=== PATIENT | male | born 1945 | race Caucasian/White ===

== ENCOUNTER 2017-07-14 17:53 | Inpatient (IN) | payer MEDICARE, OTHER ==
[~2017-07-14] VITALS: Ht 195.6 cm; Wt 113.9 kg
[~2017-07-14 17:53] MED LIST: ASPI-630 PO; CHOL500050 PO; DONE10TA7 PO; DOXA4TAB3 PO; FEXO180T81 PO; HYDR-965 PO; LOSA100T2 PO; MEMA1CAP3 PO; OMEP20CA5 PO; PRAV40TA PO
[2017-07-14 19:26] LABS: BASO # 0.1 x10^3/uL (0.0-0.2); BASO % 1 % (0-3); EOS % 2 % (0-3); HEMATOCRIT 50.6 % (39.0-53.0); HEMOGLOBIN 17.3 g/dL (13.0-17.5); LYMPH # 1.6 x10^3/uL (1.0-4.8); LYMPH % 24 % (24-48); MEAN CORPUSCULAR HEMOGLOBIN 30 pg (25-35); MEAN CORPUSCULAR HGB CONC 34 g/dL (31-37); MEAN CORPUSCULAR VOLUME 86 fL (79-100); MONO % 8 % (0-9); NEUT % 65 % (31-73); PLATELET COUNT 147 x10^3/uL (140-400); RED BLOOD COUNT 5.85 x10^6/uL (4.30-5.70); RED CELL DISTRIBUTION WIDTH 13.8 % (11.5-14.5); WHITE BLOOD COUNT 6.7 x10^3/uL (4.0-11.0)
[2017-07-14 19:40] LABS: BILIRUBIN,URINE NEGATIVE (NEG); GLUCOSE,URINE NEGATIVE (NEG); NITRITE,URINE NEGATIVE (NEG); PH,URINE 5.5; PROTEIN,URINE NEGATIVE (NEG-TRACE)
[2017-07-14 19:42] LABS: CALCIUM 8.9 mg/dL (8.5-10.1); CREATININE 4.7 mg/dL (0.7-1.3); GFR 12.4; POTASSIUM 4.6 mmol/L (3.5-5.1)
[2017-07-14 19:48] LABS: ALBUMIN 4.2 g/dL (3.4-5.0); ALBUMIN/GLOBULIN RATIO 1.4 (1.0-1.7); TOTAL BILIRUBIN 0.8 mg/dL (0.2-1.0); TOTAL PROTEIN 7.2 g/dL (6.4-8.2)
[2017-07-14 19:49] LABS: BACTERIA,URINE FEW /HPF (0-FEW); RBC,URINE 0 /HPF (0-2)
[2017-07-14] MEDS ORDERED: IV NORMAL SALINE 1000ML BAG 1,000 ML IV ONE (20:15)
--- NOTE | 2017-07-14 20:37 | EKG ---
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
--- NOTE | 2017-07-14 21:04 | PHYS DOC ---
Past Medical History Past Medical History: Depression, GERD, Hypertension, Other Additional Past Medical Histor: ALZHEIMER'S Past Surgical History: No Surgical History Alcohol Use: None Drug Use: None Adult General Chief Complaint Chief Complaint: DIZZY/LIGHT HEADED HPI HPI Patient is a 71 year old gentleman who presents here today for further evaluation of an elevated BUN/creatinine. Patient reports he went to see Dr. Anna earlier today for routine follow-up for his hypertension and got called secondary to an elevated creatinine. Patient was told to come to the ER for further evaluation. Patient currently has no symptoms pathology. Patient Denies any fevers shakes chills nausea vomiting diarrhea. Patient has any dizziness. Patient has any chest pain or shortness of breath. Patient reports normal by mouth intake. She reports been eating and drinking without any difficulty. Patient reports normal urinary output. Patient denies any dysuria frequency urgency polyuria polyuria. Patient denies any melena or bright red blood per rectum. Patient denies any hematuria. Patient has any flank tenderness. Patient denies any difficulty. Sensation in his bladder is full. Review of systems: Constitutional: Denies fever or chills Eyes: Denies change in visual acuity, redness, or eye pain HENT: Denies nasal congestion or sore throat All other systems were reviewed and found to be within normal limits, except as documented in this note. Physical exam Constitutional: Well developed, well nourished, no acute distress, non-toxic appearance. HENT: Normocephalic, atraumatic, bilateral external ears normal, oropharynx moist, no oral exudates, nose normal. Eyes: PERRLA, EOMI, conjunctiva normal, no discharge. Neck: Normal range of motion, no tenderness, supple, no stridor. Cardiovascular:Heart rate regular rhythm, Lungs & Thorax: Bilateral breath sounds clear to auscultation Abdomen: Nondistended. Skin: Warm, dry, no erythema, no rash. Back: No tenderness, no CVA tenderness. Extremities: No tenderness, no cyanosis, no clubbing, ROM intact, no edema. Neurologic: Alert and oriented X 3, normal motor function, normal sensory function, no focal deficits noted. Psychologic: Affect normal, judgement normal, mood normal. ER physical exam is significant for: Abdomen soft nontender no rebound or guarding. Patient has no flank tenderness. Patient's labs were significant for markedly elevated BUN/creatinine. Patient has no acidosis and his potassium is within normal limits. Ultrasound will be obtained. Assessment and plan: 1. 71-year-old gentleman with history significant for Alzheimer's, hypertension who presents to the ER today for further evaluation of acute renal failure. Patient reports he was called by his primary care physician secondary to his elevated BUN/creatinine. I discussed the case with Dr. Anna who agrees to current plan to admit him and will consult nephrology. We will obtain an ultrasound of his kidneys to rule out hydronephrosis. Current Medications Current Medications Current Medications Medications (Trade) Dose Ordered Sig/Luis Armando Start Time Stop Time Status Last Admin Dose Admin Sodium Chloride 1,000 ml @ 1,000 mls/hr 1X ONCE 07/14/17 20:15 07/14/17 21:14 07/14/17 20:31 1,000 MLS/HR Allergies Allergies Allergies Coded Allergies Type Severity Reaction Last Updated Verified Sulfa (Sulfonamide Antibiotics) Adverse Reaction Intermediate "SHAKES" 01/21/16 Yes meloxicam Adverse Reaction Intermediate "SHAKES" 01/21/16 Yes SIGRID Inhibitors Adverse Reaction Mild COUGH 01/21/16 Yes Current Patient Data Vital Signs Vital Signs Date Time Temp Pulse Resp B/P (MAP) Pulse Ox O2 Delivery O2 Flow Rate FiO2 07/14/17 20:03 60 13 97 07/14/17 19:01 97.3 141/89 (106) Room Air 97.3 Lab Values Laboratory Tests Test 07/14/17 19:20 07/14/17 19:22 07/14/17 19:30 White Blood Count 6.7 x10^3/uL (4.0-11.0) Red Blood Count 5.85 x10^6/uL (4.30-5.70) H Hemoglobin 17.3 g/dL (13.0-17.5) Hematocrit 50.6 % (39.0-53.0) Mean Corpuscular Volume 86 fL (79-100) Mean Corpuscular Hemoglobin 30 pg (25-35) Mean Corpuscular Hemoglobin Concent 34 g/dL (31-37) Red Cell Distribution Width 13.8 % (11.5-14.5) Platelet Count 147 x10^3/uL (140-400) Neutrophils (%) (Auto) 65 % (31-73) Lymphocytes (%) (Auto) 24 % (24-48) Monocytes (%) (Auto) 8 % (0-9) Eosinophils (%) (Auto) 2 % (0-3) Basophils (%) (Auto) 1 % (0-3) Neutrophils # (Auto) 4.3 x10^3uL (1.8-7.7) Lymphocytes # (Auto) 1.6 x10^3/uL (1.0-4.8) Monocytes # (Auto) 0.5 x10^3/uL (0.0-1.1) Eosinophils # (Auto) 0.1 x10^3/uL (0.0-0.7) Basophils # (Auto) 0.1 x10^3/uL (0.0-0.2) Sodium Level 141 mmol/L (136-145) Potassium Level 4.6 mmol/L (3.5-5.1) Chloride Level 103 mmol/L (98-107) Carbon Dioxide Level 25 mmol/L (21-32) Anion Gap 13 (6-14) Blood Urea Nitrogen 61 mg/dL (8-26) H Creatinine 4.7 mg/dL (0.7-1.3) H Estimated GFR (Cockcroft-Gault) 12.4 BUN/Creatinine Ratio 13 (6-20) Glucose Level 96 mg/dL (70-99) Calcium Level 8.9 mg/dL (8.5-10.1) Total Bilirubin 0.8 mg/dL (0.2-1.0) Aspartate Amino Transferase (AST) 30 U/L (15-37) Alanine Aminotransferase (ALT) 27 U/L (16-63) Alkaline Phosphatase 73 U/L (46-116) Troponin I Quantitative < 0.017 ng/mL (0.000-0.055) Total Protein 7.2 g/dL (6.4-8.2) Albumin 4.2 g/dL (3.4-5.0) Albumin/Globulin Ratio 1.4 (1.0-1.7) Glucose (Fingerstick) 76 mg/dL (70-99) Urine Collection Type Unknown Urine Color Yellow Urine Clarity Cloudy Urine pH 5.5 Urine Specific [place] 1.020 Urine Protein Negative mg/dL (NEG-TRACE) Urine Glucose (UA) Negative mg/dL (NEG) Urine Ketones (Stick) Negative mg/dL (NEG) Urine Blood Negative (NEG) Urine Nitrite Negative (NEG) Urine Bilirubin Negative (NEG) Urine Urobilinogen Dipstick 1.0 mg/dL (0.2 mg/dL) Urine Leukocyte Esterase Trace (NEG) Urine RBC 0 /HPF (0-2) Urine WBC 1-4 /HPF (0-4) Urine Squamous Epithelial Cells None /LPF Urine Bacteria Few /HPF (0-FEW) Urine Hyaline Casts Moderate /HPF Urine Mucus Mod /LPF Laboratory Tests 07/14/17 19:20 Laboratory Tests 07/14/17 19:20 EKG EKG [] Radiology/Procedures Radiology/Procedures [] Course & Med Decision Making Course & Med Decision Making Pertinent Labs and Imaging studies reviewed. (See chart for details) [] Dragon Disclaimer Dragon Disclaimer This electronic medical record was generated, in whole or in part, using a voice recognition dictation system. Departure Departure Impression: Primary Impression: Acute renal failure Additional Impression: Alzheimer's dementia Disposition: ADMITTED INPATIENT Admitting Physician: Guru Anna Condition: IMPROVED Referrals: GURU ANNA MD (PCP) Problem Qualifiers SHANE URIBE MD Jul 14, 2017 21:04
[2017-07-14] MEDS: IV NORMAL SALINE 1000ML BAG 1,000 ML IV SCH (21:05)
[2017-07-14] MEDS ORDERED: ONDANSETRON PF 4 MG/2 ML VIAL. IV PRN (21:15)
--- NOTE | 2017-07-14 22:07 | RAD ---
Renal sonography HISTORY: Acute renal failure. FINDINGS: The longitudinal and AP and transverse dimensions of the right kidney are 11.6 cm and 5.1 cm and 6.9 cm respectively. The longitudinal and AP and transverse dimensions of the left kidney are 13.0 cm and 6.2 cm and 6.0 cm respectively. No hydronephrosis or renal mass or perinephric fluid collection is seen on either side. Bilateral renal cysts are seen. The urinary bladder is not abnormally distended. Prostate gland measures 5.9 cm in greatest transverse dimension. Resistive index of the right kidney is 0.72 and resistive index of the left kidney is 0.70. IMPRESSION: No hydronephrosis. Mild enlargement of the prostate gland. Bilateral renal cysts. Electronically signed by: Ignacio Goodman MD (07/14/2017 10:04 PM) [facility]
[2017-07-14 22:41] VITALS: BP 159/96
[2017-07-14 22:42] VITALS: BP 159/96
[2017-07-14] MEDS ORDERED: ESCITALOPRAM OX20 MG PO (23:07)
[2017-07-14] MEDS ORDERED: OMEG1CAP6 PO (23:07)
[2017-07-14] MEDS ORDERED: LOSA50TA6 PO (23:07)
[2017-07-14] MEDS ORDERED: DOXA1TAB2 PO (23:07)
[2017-07-14] MEDS ORDERED: AMLO5TAB2 PO (23:07)
[2017-07-15] VITALS (8 sets, daily range): BP systolic 121–165; BP diastolic 64–91
[2017-07-15 06:37] LABS: CALCIUM 8.2 mg/dL (8.5-10.1); CREATININE 4.1 mg/dL (0.7-1.3); GFR 14.5; POTASSIUM 4.1 mmol/L (3.5-5.1)
--- NOTE | 2017-07-15 09:17 | RAD ---
AP PORTABLE CHEST Clinical Indication: arf. Comparison: Two-view chest 09/13/2009. Findings: The cardiomediastinal silhouette is normal. Lungs are clear. There is no pneumothorax. No pleural effusion is appreciated. There is no acute bone abnormality. IMPRESSION: No acute cardiopulmonary process.
[2017-07-15] MEDS: IV NORMAL SALINE 1000ML BAG 1,000 ML IV SCH ×2 (09:44→20:38)
[2017-07-15] MEDS: CITALOPRAM 20 MG TABLET. PO SCH (11:29)
[2017-07-15] MEDS: LOSARTAN POTASSIUM 50 MG TABLET. PO SCH (11:30)
[2017-07-15] MEDS: MEMANTINE 10 MG TABLET. PO SCH ×2 (11:30→20:37)
[2017-07-15] MEDS: CETIRIZINE HCL 10 MG TABLET. PO SCH (11:30)
[2017-07-15] MEDS: amLODIPine BESYLATE 5 MG TABLET PO SCH (11:31)
[2017-07-15] MEDS: DONEPEZIL HCL 10 MG TABLET. PO SCH (11:32)
[2017-07-15] MEDS: OMEGA-3 FATTY ACIDS/FISH OIL 1,000 MG CAPSULE. PO SCH (11:32)
--- NOTE | 2017-07-15 11:33 | HP ---
ADMIT DATE: 07/14/2017 CHIEF COMPLAINT: Near syncope. HISTORY OF PRESENT ILLNESS AND HOSPITAL COURSE: This patient is a 71-year-old male with ongoing history of hypertension and Alzheimer's type dementia, initially came to the office on 04/26/2017 with significantly high blood pressures. He was increased on blood pressure treatment at that time from amlodipine 5 to amlodipine 10 and hydrochlorothiazide 12.5 was started. He had normal creatinine on that day, 04/26/2017, of 0.99. He returned in one month for recheck of blood pressures. Blood pressure continued to be high at 180/96. His medications were again adjusted, stopping his hydrochlorothiazide and starting triamterene/hydrochlorothiazide 37.5/25 on that occasion. The patient failed to have laboratory on that office visit due to nonfasting status and returned in one month, at which time his blood pressures were within normal range, but the patient was very dizzy and feeling orthostatic. This was confirmed in the office and medications were decreased by decreasing his losartan to 50 mg and amlodipine to 5 mg. His doxazosin was stopped on that day as well. Laboratory on that day revealed a significant finding of a creatinine over 4. The patient was called at home and told to come to the Emergency Room for further evaluation of near syncope, orthostatics and ongoing renal failure. PAST MEDICAL HISTORY: Significant for: 1. Alzheimer's type dementia. 2. Hypertension. 3. High cholesterol. 4. Esophageal reflux disease. 5. Depression. 6. History of cholelithiasis. 7. Benign prostatic hypertrophy. 8. Allergic rhinitis. MEDICATIONS: The patient's medications upon this hospitalization after recent adjustment were losartan 50 mg daily, doxazosin had been discontinued several days ago, but had not been discontinued to this point; amlodipine 10 mg now 5 mg, triamterene/hydrochlorothiazide 37.5/25, pravastatin 40 mg daily, Namzaric Aricept-Namenda combination 05/19 one daily, Lexapro 20 mg daily, Prilosec 20 mg daily, aspirin 81 mg daily, Jessica 180 mg every day, fish oil 1000 International Units daily, vitamin D 50,000 International Units weekly. FAMILY HISTORY: Mother with hypertension and breast cancer. Father with hypertension and a cancer, which was not elucidated. PAST SURGICAL HISTORY: Significant for tonsillectomy, appendectomy, kidney stone removal, varicose vein surgery, left knee scope and Davalos cyst removal, and unspecified tumor removal. SOCIAL HISTORY: He lives with his who provides excellent care. He has never smoked. He does not use alcohol. ALLERGIES: MELOXICAM, SULFA, WHICH CAUSES TREMORS; SIGRID INHIBITOR, WHICH CAUSES COUGH; LAMISIL, WHICH CAUSES INCREASED CONFUSION. REVIEW OF SYSTEMS: The patient continues to get dizzy when he gets up and walks and is a fall risk. He denies any recent nausea, vomiting, diarrhea, cough, congestion, chest pain, or shortness of breath. PHYSICAL EXAMINATION: GENERAL: Well-nourished, well-developed male, in no apparent distress. He is alert and oriented x 3. HEENT: Benign. NECK: Supple, without JVD or bruit. CARDIAC: Regular rate and rhythm. LUNGS: Clear. ABDOMEN: Soft, nontender, without masses. EXTREMITIES: 2+ pulse without edema. NEUROLOGIC: Intact except for ongoing short-term memory loss. ASSESSMENT: 1. Acute renal failure. 2. History of hypertensive emergency. 3. Near syncope. 4. Alzheimer type dementia. 5. Hypertension. 6. High cholesterol. 7. Reflux disease. 8. Benign prostatic hypertrophy. PEDRO VANCE MD DR: NATE/marycruz JOB#: [id number] / [id number]
--- NOTE | 2017-07-15 12:08 | PDOC2 ---
CONSULT Date of Consult Date of Consult DATE: 07/15/17 TIME: 12:07 Reason for Consult Reason for Consult: ELISABETH Referring Physician Referring Physician: Dr Anna Identification/Chief Complaint Chief Complaint Ab N Labs Problems: Source Source: Chart review, Patient History of Present Illness Reason for Visit: as dictated Current Problem List Problem List Problems Medical Problems: (1) Acute renal failure Status: Acute (2) Alzheimer's dementia Status: Acute Current Medications Current Medications Current Medications Sodium Chloride 1,000 ml @ 1,000 mls/hr 1X ONCE IV Last administered on 07/14 20:31; Start 07/14/17 at 20:15; Stop 07/14/17 at 21:14; Status DC Ondansetron HCl (Zofran) 4 mg PRN Q8HRS PRN IV NAUSEA/VOMITING; Start at 21:15; Stop 07/15/17 at 21:14 Sodium Chloride 1,000 ml @ 100 mls/hr Q10H IV Last administered on 07/15/17 09:44; Start 07/14/17 at 21:05; Stop 07/15/17 at 21:04 Amlodipine Besylate (Norvasc) 5 mg DAILY PO Last administered on 07/15/17 11: 31; Start 07/15/17 at 11:30 Losartan Potassium (Cozaar) 50 mg DAILY PO Last administered on 07/15/17 11: 30; Start 07/15/17 at 11:30 Fish Oil (Fish Oil) 1,000 mg DAILY PO Last administered on 07/15/17 11:32; Start 07/15/17 at 11:30 Non-Formulary Medication 50,000 unit WEEKLY PO ; Start 07/22/17 at 09:00 Citalopram Hydrobromide (CeleXA) 40 mg DAILY PO Last administered on 11:29; Start 07/15/17 at 11:30 Cetirizine HCl (ZyrTEC) 10 mg DAILY PO Last administered on 07/15/17 11:30; Start 07/15/17 at 11:30 Pantoprazole Sodium (Protonix) 40 mg QHS PO ; Start 07/15/17 at 21:00 Atorvastatin Calcium (Lipitor) 10 mg QHS PO ; Start 07/15/17 at 21:00 Memantine (Namenda) 10 mg BID PO Last administered on 07/15/17 11:30; Start 07/15/17 at 11:30 Donepezil HCl (Aricept) 10 mg DAILY PO Last administered on 07/15/17 11:32; Start 07/15/17 at 11:30 Active Scripts Active Reported Fish Oil 1,000 Mg Capsule ([place]-3 Fatty Acids/Fish Oil) 1 Each Capsule 1 Each PO Doxazosin Mesylate 1 Mg Tablet 1 Mg PO DAILY Losartan Potassium 50 Mg Tablet 50 Mg PO DAILY Amlodipine Besylate 5 Mg Tablet 5 Mg PO DAILY Escitalopram Oxalate 20 Mg Tablet 1 Tab PO DAILY Aspirin 81 Mg Tab.chew 81 Mg PO DAILY Vitamin D3 (Cholecalciferol (Vitamin D3)) 50,000 Unit Capsule 50,000 Unit PO WEEKLY Jessica Allergy (Fexofenadine Hcl) 180 Mg Tablet 180 Mg PO DAILY Prilosec (Omeprazole) 20 Mg Capsule.dr 20 Mg PO HS Pravachol (Pravastatin Sodium) 40 Mg Tablet 40 Mg PO HS Allergies Allergies: Coded Allergies: Sulfa (Sulfonamide Antibiotics) (Verified Adverse Reaction, Intermediate, "SHAKES", 01/21/16) meloxicam (Verified Adverse Reaction, Intermediate, "SHAKES", 01/21/16) SIGRID Inhibitors (Verified Adverse Reaction, Mild, COUGH, 01/21/16) ROS Review of System GEN: NO Fevers NO Chills + WT LOSS 10LBS EYES: NO NEW Visual Complaints ENT: NO EN Drainage NO Hearing deficiets CVS: NO Orthopnea NO CP RESP: NO SOB NO LAINEZ GI: NO Nausea NO Vomiting CH. DIARRHEA : no Dysuria no Urgency + Nocturia x 2-3 per HEME: no easy bruising no Palp Ly Nodes NEURO no Focal Weakness no Sz known Alz dementia PSYCH: no Suicidal Ideation no Depression SKIN: no Rashes ENDO: no Polyuria or Polydipsia no Hot/Cold Intolerance MU SK: no Arthraigia no Myalgia Physical Exam Physical Exam General Appearance: Awake Alert Oriented x 3 In no Distress Eyes: VIsion Unchanged Conjunctiva Normal EN: No EN Drainage Mucous Memb. moist Neck: no JVD no JVP Supple no Thyromegaly CVS: S1 S2 no Murmur No Gallop No Rub no Edema Resp: no Rales no Rhonchi n Acc. Muscle use GI: BAS +ve NO Bruit Non Tender Non Distended : no CVA tenderness; no Suprapubic Tenderness SKIN: no Rashes Breast Exam deferred Mu.Sk: Adequate ROM no Muscle Atrophy Heme: Unable to palpate Obvious LAD no Splenomegaly NEURO: Good Strength and Tone Cranial Nerves II - XII grossly intact Psych: not Depressed no Active hallucination Vital Signs Vital Signs Date Time Temp Pulse Resp B/P (MAP) Pulse Ox O2 Delivery O2 Flow Rate FiO2 07/15/17 11:31 62 131/75 07/15/17 11:00 97.9 20 98 Room Air 97.9 Assessment & Plan ELISABETH - suspect due to Better BP control and Diuretics use/ dehydration - Improving with IVf; cehck CK. Protein Gap is min so no PEPs ordered Dehdyration - duuretic induced - IVF as ordered ? Accel HTN - asymptomatic - no home chekcs - check RAD Known BPH - No [place] noted on US - will check PVR / bl scan Discussed Plan of Care and prognosis etc. at length with family. Labs Labs Laboratory Tests Test 07/14/17 19:20 07/14/17 19:22 07/14/17 19:30 07/15/17 04:35 White Blood Count 6.7 x10^3/uL (4.0-11.0) Red Blood Count 5.85 x10^6/uL (4.30-5.70) Hemoglobin 17.3 g/dL (13.0-17.5) Hematocrit 50.6 % (39.0-53.0) Mean Corpuscular Volume 86 fL (79-100) Mean Corpuscular Hemoglobin 30 pg (25-35) Mean Corpuscular Hemoglobin Concent 34 g/dL (31-37) Red Cell Distribution Width 13.8 % (11.5-14.5) Platelet Count 147 x10^3/uL (140-400) Neutrophils (%) (Auto) 65 % (31-73) Lymphocytes (%) (Auto) 24 % (24-48) Monocytes (%) (Auto) 8 % (0-9) Eosinophils (%) (Auto) 2 % (0-3) Basophils (%) (Auto) 1 % (0-3) Neutrophils # (Auto) 4.3 x10^3uL (1.8-7.7) Lymphocytes # (Auto) 1.6 x10^3/uL (1.0-4.8) Monocytes # (Auto) 0.5 x10^3/uL (0.0-1.1) Eosinophils # (Auto) 0.1 x10^3/uL (0.0-0.7) Basophils # (Auto) 0.1 x10^3/uL (0.0-0.2) Sodium Level 141 mmol/L (136-145) 140 mmol/L (136-145) Potassium Level 4.6 mmol/L (3.5-5.1) 4.1 mmol/L (3.5-5.1) Chloride Level 103 mmol/L (98-107) 105 mmol/L (98-107) Carbon Dioxide Level 25 mmol/L (21-32) 25 mmol/L (21-32) Anion Gap 13 (6-14) 10 (6-14) Blood Urea Nitrogen 61 mg/dL (8-26) 55 mg/dL (8-26) Creatinine 4.7 mg/dL (0.7-1.3) 4.1 mg/dL (0.7-1.3) Estimated GFR (Cockcroft-Gault) 12.4 14.5 BUN/Creatinine Ratio 13 (6-20) Glucose Level 96 mg/dL (70-99) 90 mg/dL (70-99) Calcium Level 8.9 mg/dL (8.5-10.1) 8.2 mg/dL (8.5-10.1) Total Bilirubin 0.8 mg/dL (0.2-1.0) Aspartate Amino Transf (AST/SGOT) 30 U/L (15-37) Alanine Aminotransferase (ALT/SGPT) 27 U/L (16-63) Alkaline Phosphatase 73 U/L (46-116) Troponin I Quantitative < 0.017 ng/mL (0.000-0.055) Total Protein 7.2 g/dL (6.4-8.2) Albumin 4.2 g/dL (3.4-5.0) Albumin/Globulin Ratio 1.4 (1.0-1.7) Glucose (Fingerstick) 76 mg/dL (70-99) Urine Collection Type Unknown Urine Color Yellow Urine Clarity Cloudy Urine pH 5.5 Urine Specific [place] 1.020 Urine Protein Negative mg/dL (NEG-TRACE) Urine Glucose (UA) Negative mg/dL (NEG) Urine Ketones (Stick) Negative mg/dL (NEG) Urine Blood Negative (NEG) Urine Nitrite Negative (NEG) Urine Bilirubin Negative (NEG) Urine Urobilinogen Dipstick 1.0 mg/dL (0.2 mg/dL) Urine Leukocyte Esterase Trace (NEG) Urine RBC 0 /HPF (0-2) Urine WBC 1-4 /HPF (0-4) Urine Squamous Epithelial Cells None /LPF Urine Bacteria Few /HPF (0-FEW) Urine Hyaline Casts Moderate /HPF Urine Mucus Mod /LPF Laboratory Tests Test 07/14/17 19:20 07/14/17 19:22 07/14/17 19:30 07/15/17 04:35 White Blood Count 6.7 x10^3/uL (4.0-11.0) Red Blood Count 5.85 x10^6/uL (4.30-5.70) Hemoglobin 17.3 g/dL (13.0-17.5) Hematocrit 50.6 % (39.0-53.0) Mean Corpuscular Volume 86 fL (79-100) Mean Corpuscular Hemoglobin 30 pg (25-35) Mean Corpuscular Hemoglobin Concent 34 g/dL (31-37) Red Cell Distribution Width 13.8 % (11.5-14.5) Platelet Count 147 x10^3/uL (140-400) Neutrophils (%) (Auto) 65 % (31-73) Lymphocytes (%) (Auto) 24 % (24-48) Monocytes (%) (Auto) 8 % (0-9) Eosinophils (%) (Auto) 2 % (0-3) Basophils (%) (Auto) 1 % (0-3) Neutrophils # (Auto) 4.3 x10^3uL (1.8-7.7) Lymphocytes # (Auto) 1.6 x10^3/uL (1.0-4.8) Monocytes # (Auto) 0.5 x10^3/uL (0.0-1.1) Eosinophils # (Auto) 0.1 x10^3/uL (0.0-0.7) Basophils # (Auto) 0.1 x10^3/uL (0.0-0.2) Sodium Level 141 mmol/L (136-145) 140 mmol/L (136-145) Potassium Level 4.6 mmol/L (3.5-5.1) 4.1 mmol/L (3.5-5.1) Chloride Level 103 mmol/L (98-107) 105 mmol/L (98-107) Carbon Dioxide Level 25 mmol/L (21-32) 25 mmol/L (21-32) Anion Gap 13 (6-14) 10 (6-14) Blood Urea Nitrogen 61 mg/dL (8-26) 55 mg/dL (8-26) Creatinine 4.7 mg/dL (0.7-1.3) 4.1 mg/dL (0.7-1.3) Estimated GFR (Cockcroft-Gault) 12.4 14.5 BUN/Creatinine Ratio 13 (6-20) Glucose Level 96 mg/dL (70-99) 90 mg/dL (70-99) Calcium Level 8.9 mg/dL (8.5-10.1) 8.2 mg/dL (8.5-10.1) Total Bilirubin 0.8 mg/dL (0.2-1.0) Aspartate Amino Transf (AST/SGOT) 30 U/L (15-37) Alanine Aminotransferase (ALT/SGPT) 27 U/L (16-63) Alkaline Phosphatase 73 U/L (46-116) Troponin I Quantitative < 0.017 ng/mL (0.000-0.055) Total Protein 7.2 g/dL (6.4-8.2) Albumin 4.2 g/dL (3.4-5.0) Albumin/Globulin Ratio 1.4 (1.0-1.7) Glucose (Fingerstick) 76 mg/dL (70-99) Urine Collection Type Unknown Urine Color Yellow Urine Clarity Cloudy Urine pH 5.5 Urine Specific [place] 1.020 Urine Protein Negative mg/dL (NEG-TRACE) Urine Glucose (UA) Negative mg/dL (NEG) Urine Ketones (Stick) Negative mg/dL (NEG) Urine Blood Negative (NEG) Urine Nitrite Negative (NEG) Urine Bilirubin Negative (NEG) Urine Urobilinogen Dipstick 1.0 mg/dL (0.2 mg/dL) Urine Leukocyte Esterase Trace (NEG) Urine RBC 0 /HPF (0-2) Urine WBC 1-4 /HPF (0-4) Urine Squamous Epithelial Cells None /LPF Urine Bacteria Few /HPF (0-FEW) Urine Hyaline Casts Moderate /HPF Urine Mucus Mod /LPF Images Images FINDINGS: The longitudinal and AP and transverse dimensions of the right kidney are 11.6 cm and 5.1 cm and 6.9 cm respectively. The longitudinal and AP and transverse dimensions of the left kidney are 13.0 cm and 6.2 cm and 6.0 cm respectively. No hydronephrosis or renal mass or perinephric fluid collection is seen on either side. Bilateral renal cysts are seen. The urinary bladder is not abnormally distended. Prostate gland measures 5.9 cm in greatest transverse dimension. Resistive index of the right kidney is 0.72 and resistive index of the left kidney is 0.70. IMPRESSION: No hydronephrosis. Mild enlargement of the prostate gland. Bilateral renal cysts. NICHOLAS CADET MD Jul 15, 2017 12:08
[2017-07-15] MEDS ORDERED: MAGNESIUM SULFATE 2GM 50 ML IV PRN (12:30)
[2017-07-15] MEDS: ATORVASTATIN CALCIUM 10 MG TABLET. PO SCH (20:37)
[2017-07-15] MEDS: PANTOPRAZOLE 40 MG TABLET.DR. PO SCH (20:37)
--- NOTE | 2017-07-15 22:05 | CONS ---
DATE OF CONSULTATION: 07/15/2017 PRIMARY PHYSICIAN: Guru Anna MD. REASON FOR CONSULTATION: Acute renal failure. HISTORY OF PRESENT ILLNESS: The patient is a 71-year-old gentleman with known history of longstanding hypertension, BPH and Alzheimer's type dementia. He had seen Dr. Anna in April and was noted to have elevated blood pressures. It is unclear to me or to the if this was a sudden acceleration of his blood pressure. Otherwise, his amlodipine was increased and hydrochlorothiazide was added. He is noted to have creatinine of 0.99 on 04/26/[address] Anna. He returned for one month check of his blood pressure and they continued to be elevated at 180/[address] Anna's note. The claims that they do not check blood pressures at home. Hydrochlorothiazide was changed to Dyazide at that time. More recently, he was noted to have increasing dizziness, orthostasis and has lost about 10 pounds. His medications were again changed whereby his losartan and amlodipine was decreased and doxazosin was stopped. He continued to have generalized weakness, increased daytime somnolence and was asked to come to the ER. He was noted to have orthostasis and new onset renal failure and we were asked to see him for renal failure. He denies NSAID use. He has chronic diarrhea. No nausea or vomiting. Does have nocturia. No knowledge of renal insufficiency as mentioned previously. He has had one episode of kidney stones and enlarged prostate as noted previously. He has had a cystoscopy tube. does not know his urologist. PAST MEDICAL HISTORY: 1. Alzheimer's type dementia. 2. Longstanding hypertension. 3. Hyperlipidemia. 4. GERD. 5. Depression. 6. Cholelithiasis. 7. BPH. 8. Seasonal allergies. PAST SURGICAL HISTORY: He is also noted to have kidney stones x 1, requiring cystoscopy and a Davalos cyst surgery on the left side, varicose vein surgery, arthroscopic knee evaluation, tonsillectomy, appendectomy, and unspecified tumor removal. FAMILY HISTORY: Negative for known kidney problems. Mom with hypertension and breast cancer. Father of hypertension and cancer. SOCIAL HISTORY: , lives with his family. Nonsmoker, nondrinker, has never smoked, never drank. ALLERGIES: As outlined. For rest of details, see electronic records. NICHOLAS CADET MD DR: [email or web address] JOB#: [id number] / [id number]
[2017-07-16] VITALS (8 sets, daily range): BP systolic 123–174; BP diastolic 76–94
[2017-07-16 04:45] LABS: BASO % 1 % (0-3); EOS % 2 % (0-3); HEMATOCRIT 45.8 % (39.0-53.0); HEMOGLOBIN 15.7 g/dL (13.0-17.5); LYMPH # 1.8 x10^3/uL (1.0-4.8); LYMPH % 30 % (24-48); MEAN CORPUSCULAR HEMOGLOBIN 30 pg (25-35); MEAN CORPUSCULAR HGB CONC 34 g/dL (31-37); MEAN CORPUSCULAR VOLUME 87 fL (79-100); MONO % 8 % (0-9); NEUT % 59 % (31-73); PLATELET COUNT 126 x10^3/uL (140-400); RED BLOOD COUNT 5.29 x10^6/uL (4.30-5.70); RED CELL DISTRIBUTION WIDTH 13.9 % (11.5-14.5); WHITE BLOOD COUNT 5.8 x10^3/uL (4.0-11.0)
[2017-07-16 05:09] LABS: ALBUMIN 3.6 g/dL (3.4-5.0); CREATININE 3.4 mg/dL (0.7-1.3); PHOSPHORUS 4.3 mg/dL (2.6-4.7); POTASSIUM 4.3 mmol/L (3.5-5.1)
[2017-07-16] MEDS: IV NORMAL SALINE 1000ML BAG 1,000 ML IV SCH ×2 (07:55→18:29)
[2017-07-16] MEDS: LOSARTAN POTASSIUM 50 MG TABLET. PO SCH (07:56)
[2017-07-16] MEDS: CITALOPRAM 20 MG TABLET. PO SCH (07:57)
[2017-07-16] MEDS: MEMANTINE 10 MG TABLET. PO SCH ×2 (07:57→20:41)
[2017-07-16] MEDS: CETIRIZINE HCL 10 MG TABLET. PO SCH (07:57)
[2017-07-16] MEDS: OMEGA-3 FATTY ACIDS/FISH OIL 1,000 MG CAPSULE. PO SCH (07:57)
[2017-07-16] MEDS: DONEPEZIL HCL 10 MG TABLET. PO SCH (07:57)
[2017-07-16] MEDS: amLODIPine BESYLATE 5 MG TABLET PO SCH (07:57)
--- NOTE | 2017-07-16 08:27 | PDOC ---
PROGRESS NOTES Subjective Subjective Patient doing well. Cr. improved. Patient with sundowning last night and pulled IV out. IV fluids fell off orders restarted today. Objective Objective Vital Signs Date Time Temp Pulse Resp B/P (MAP) Pulse Ox O2 Delivery O2 Flow Rate FiO2 07/16/17 07:57 68 160/90 07/16/17 07:45 Room Air 07/16/17 03:00 97.5 18 95 97.5 Intake and Output 07/16/17 06:59 Intake Total 3430 ml Balance 3430 ml Intake Oral 480 ml IV Total 2950 ml # Voids 5 # Bowel Movements 2 Physical Exam Abdomen: Normal bowel sounds Heart: Regular rate Extremities: No edema General: Alert Lungs: Clear to auscultation Assessment Assessment Problems Medical Problems: (1) Acute renal failure Status: Acute (2) Alzheimer's dementia Status: Acute 1. Acute renal failure. 2. History of hypertensive emergency. 3. Near syncope. 4. Alzheimer type dementia. 5. Hypertension. 6. High cholesterol. 7. Reflux disease. 8. Benign prostatic hypertrophy. Plan Plan of Care Continue IV fluids continue renal eval Renal arterial doppler pending Follow BUN/CR and BP Comment Review of Relevant I have reviewed the following items felisha (where applicable) has been applied. Labs Laboratory Tests Test 07/14/17 19:20 07/14/17 19:22 07/14/17 19:30 07/15/17 04:35 White Blood Count 6.7 x10^3/uL (4.0-11.0) Red Blood Count 5.85 x10^6/uL (4.30-5.70) Hemoglobin 17.3 g/dL (13.0-17.5) Hematocrit 50.6 % (39.0-53.0) Mean Corpuscular Volume 86 fL (79-100) Mean Corpuscular Hemoglobin 30 pg (25-35) Mean Corpuscular Hemoglobin Concent 34 g/dL (31-37) Red Cell Distribution Width 13.8 % (11.5-14.5) Platelet Count 147 x10^3/uL (140-400) Neutrophils (%) (Auto) 65 % (31-73) Lymphocytes (%) (Auto) 24 % (24-48) Monocytes (%) (Auto) 8 % (0-9) Eosinophils (%) (Auto) 2 % (0-3) Basophils (%) (Auto) 1 % (0-3) Neutrophils # (Auto) 4.3 x10^3uL (1.8-7.7) Lymphocytes # (Auto) 1.6 x10^3/uL (1.0-4.8) Monocytes # (Auto) 0.5 x10^3/uL (0.0-1.1) Eosinophils # (Auto) 0.1 x10^3/uL (0.0-0.7) Basophils # (Auto) 0.1 x10^3/uL (0.0-0.2) Sodium Level 141 mmol/L (136-145) 140 mmol/L (136-145) Potassium Level 4.6 mmol/L (3.5-5.1) 4.1 mmol/L (3.5-5.1) Chloride Level 103 mmol/L (98-107) 105 mmol/L (98-107) Carbon Dioxide Level 25 mmol/L (21-32) 25 mmol/L (21-32) Anion Gap 13 (6-14) 10 (6-14) Blood Urea Nitrogen 61 mg/dL (8-26) 55 mg/dL (8-26) Creatinine 4.7 mg/dL (0.7-1.3) 4.1 mg/dL (0.7-1.3) Estimated GFR (Cockcroft-Gault) 12.4 14.5 BUN/Creatinine Ratio 13 (6-20) Glucose Level 96 mg/dL (70-99) 90 mg/dL (70-99) Calcium Level 8.9 mg/dL (8.5-10.1) 8.2 mg/dL (8.5-10.1) Total Bilirubin 0.8 mg/dL (0.2-1.0) Aspartate Amino Transf (AST/SGOT) 30 U/L (15-37) Alanine Aminotransferase (ALT/SGPT) 27 U/L (16-63) Alkaline Phosphatase 73 U/L (46-116) Troponin I Quantitative < 0.017 ng/mL (0.000-0.055) Total Protein 7.2 g/dL (6.4-8.2) Albumin 4.2 g/dL (3.4-5.0) Albumin/Globulin Ratio 1.4 (1.0-1.7) Glucose (Fingerstick) 76 mg/dL (70-99) Urine Collection Type Unknown Urine Color Yellow Urine Clarity Cloudy Urine pH 5.5 Urine Specific [place] 1.020 Urine Protein Negative mg/dL (NEG-TRACE) Urine Glucose (UA) Negative mg/dL (NEG) Urine Ketones (Stick) Negative mg/dL (NEG) Urine Blood Negative (NEG) Urine Nitrite Negative (NEG) Urine Bilirubin Negative (NEG) Urine Urobilinogen Dipstick 1.0 mg/dL (0.2 mg/dL) Urine Leukocyte Esterase Trace (NEG) Urine RBC 0 /HPF (0-2) Urine WBC 1-4 /HPF (0-4) Urine Squamous Epithelial Cells None /LPF Urine Bacteria Few /HPF (0-FEW) Urine Hyaline Casts Moderate /HPF Urine Mucus Mod /LPF Test 07/16/17 04:10 White Blood Count 5.8 x10^3/uL (4.0-11.0) Red Blood Count 5.29 x10^6/uL (4.30-5.70) Hemoglobin 15.7 g/dL (13.0-17.5) Hematocrit 45.8 % (39.0-53.0) Mean Corpuscular Volume 87 fL (79-100) Mean Corpuscular Hemoglobin 30 pg (25-35) Mean Corpuscular Hemoglobin Concent 34 g/dL (31-37) Red Cell Distribution Width 13.9 % (11.5-14.5) Platelet Count 126 x10^3/uL (140-400) Neutrophils (%) (Auto) 59 % (31-73) Lymphocytes (%) (Auto) 30 % (24-48) Monocytes (%) (Auto) 8 % (0-9) Eosinophils (%) (Auto) 2 % (0-3) Basophils (%) (Auto) 1 % (0-3) Neutrophils # (Auto) 3.4 x10^3uL (1.8-7.7) Lymphocytes # (Auto) 1.8 x10^3/uL (1.0-4.8) Monocytes # (Auto) 0.5 x10^3/uL (0.0-1.1) Eosinophils # (Auto) 0.1 x10^3/uL (0.0-0.7) Basophils # (Auto) 0.0 x10^3/uL (0.0-0.2) Sodium Level 143 mmol/L (136-145) Potassium Level 4.3 mmol/L (3.5-5.1) Chloride Level 107 mmol/L (98-107) Carbon Dioxide Level 24 mmol/L (21-32) Anion Gap 12 (6-14) Blood Urea Nitrogen 48 mg/dL (8-26) Creatinine 3.4 mg/dL (0.7-1.3) Estimated GFR (Cockcroft-Gault) 18.0 Glucose Level 87 mg/dL (70-99) Calcium Level 8.0 mg/dL (8.5-10.1) Phosphorus Level 4.3 mg/dL (2.6-4.7) Magnesium Level 1.7 mg/dL (1.8-2.4) Albumin 3.6 g/dL (3.4-5.0) Laboratory Tests Test 07/16/17 04:10 White Blood Count 5.8 x10^3/uL (4.0-11.0) Red Blood Count 5.29 x10^6/uL (4.30-5.70) Hemoglobin 15.7 g/dL (13.0-17.5) Hematocrit 45.8 % (39.0-53.0) Mean Corpuscular Volume 87 fL (79-100) Mean Corpuscular Hemoglobin 30 pg (25-35) Mean Corpuscular Hemoglobin Concent 34 g/dL (31-37) Red Cell Distribution Width 13.9 % (11.5-14.5) Platelet Count 126 x10^3/uL (140-400) Neutrophils (%) (Auto) 59 % (31-73) Lymphocytes (%) (Auto) 30 % (24-48) Monocytes (%) (Auto) 8 % (0-9) Eosinophils (%) (Auto) 2 % (0-3) Basophils (%) (Auto) 1 % (0-3) Neutrophils # (Auto) 3.4 x10^3uL (1.8-7.7) Lymphocytes # (Auto) 1.8 x10^3/uL (1.0-4.8) Monocytes # (Auto) 0.5 x10^3/uL (0.0-1.1) Eosinophils # (Auto) 0.1 x10^3/uL (0.0-0.7) Basophils # (Auto) 0.0 x10^3/uL (0.0-0.2) Sodium Level 143 mmol/L (136-145) Potassium Level 4.3 mmol/L (3.5-5.1) Chloride Level 107 mmol/L (98-107) Carbon Dioxide Level 24 mmol/L (21-32) Anion Gap 12 (6-14) Blood Urea Nitrogen 48 mg/dL (8-26) Creatinine 3.4 mg/dL (0.7-1.3) Estimated GFR (Cockcroft-Gault) 18.0 Glucose Level 87 mg/dL (70-99) Calcium Level 8.0 mg/dL (8.5-10.1) Phosphorus Level 4.3 mg/dL (2.6-4.7) Magnesium Level 1.7 mg/dL (1.8-2.4) Albumin 3.6 g/dL (3.4-5.0) Microbiology 07/14/17 Urine Culture - Preliminary, Resulted 07/14/17 Urine Culture Result 1 (BRUNA) - Preliminary, Resulted Medications Current Medications Sodium Chloride 1,000 ml @ 1,000 mls/hr 1X ONCE IV Last administered on 07/14 20:31; Start 07/14/17 at 20:15; Stop 07/14/17 at 21:14; Status DC Ondansetron HCl (Zofran) 4 mg PRN Q8HRS PRN IV NAUSEA/VOMITING; Start at 21:15; Stop 07/15/17 at 21:14; Status DC Sodium Chloride 1,000 ml @ 100 mls/hr Q10H IV Last administered on 07/15/17 20:38; Start 07/14/17 at 21:05; Stop 07/15/17 at 21:04; Status DC Amlodipine Besylate (Norvasc) 5 mg DAILY PO Last administered on 07/16/17 07: 57; Start 07/15/17 at 11:30 Losartan Potassium (Cozaar) 50 mg DAILY PO Last administered on 07/16/17 07: 56; Start 07/15/17 at 11:30 Fish Oil (Fish Oil) 1,000 mg DAILY PO Last administered on 07/16/17 07:57; Start 07/15/17 at 11:30 Non-Formulary Medication 50,000 unit WEEKLY PO ; Start 07/22/17 at 09:00 Citalopram Hydrobromide (CeleXA) 40 mg DAILY PO Last administered on 07:57; Start 07/15/17 at 11:30 Cetirizine HCl (ZyrTEC) 10 mg DAILY PO Last administered on 07/16/17 07:57; Start 07/15/17 at 11:30 Pantoprazole Sodium (Protonix) 40 mg QHS PO Last administered on 07/15/17 20: 37; Start 07/15/17 at 21:00 Atorvastatin Calcium (Lipitor) 10 mg QHS PO Last administered on 07/15/17 20: 37; Start 07/15/17 at 21:00 Memantine (Namenda) 10 mg BID PO Last administered on 07/16/17 07:57; Start 07/15/17 at 11:30 Donepezil HCl (Aricept) 10 mg DAILY PO Last administered on 07/16/17 07:57; Start 07/15/17 at 11:30 Magnesium Sulfate/ Dextrose 50 ml @ 25 mls/hr PRN DAILY PRN IV for Mag < 1.7 on am labs; Start 07/15/17 at 12:30 Sodium Chloride 1,000 ml @ 100 mls/hr Q10H IV Last administered on 07/16/17 07:55; Start 07/16/17 at 07:30 Active Scripts Active Reported Fish Oil 1,000 Mg Capsule ([place]-3 Fatty Acids/Fish Oil) 1 Each Capsule 1 Each PO Doxazosin Mesylate 1 Mg Tablet 1 Mg PO DAILY Losartan Potassium 50 Mg Tablet 50 Mg PO DAILY Amlodipine Besylate 5 Mg Tablet 5 Mg PO DAILY Escitalopram Oxalate 20 Mg Tablet 1 Tab PO DAILY Aspirin 81 Mg Tab.chew 81 Mg PO DAILY Vitamin D3 (Cholecalciferol (Vitamin D3)) 50,000 Unit Capsule 50,000 Unit PO WEEKLY Jessica Allergy (Fexofenadine Hcl) 180 Mg Tablet 180 Mg PO DAILY Prilosec (Omeprazole) 20 Mg Capsule.dr 20 Mg PO HS Pravachol (Pravastatin Sodium) 40 Mg Tablet 40 Mg PO HS Vitals/I & O Vital Sign - Last 24 Hours 07/15/17 07/15/17 07/15/17 07/15/17 11:00 11:30 11:31 15:00 Temp 97.9 97.6 97.9 97.6 Pulse 62 62 62 58 Resp 20 19 B/P (MAP) 131/75 (93) 131/75 131/75 131/72 (91) Pulse Ox 98 96 O2 Delivery Room Air Room Air 07/15/17 07/15/17 07/15/17 07/15/17 15:05 15:10 19:00 19:00 Temp 96.6 96.6 Pulse 64 72 74 61 Resp 19 19 18 B/P (MAP) 130/74 (92) 121/64 (83) 130/73 (92) 147/84 (105) Pulse Ox 96 94 97 O2 Delivery Room Air Room Air Room Air 07/15/17 07/15/17 07/15/17 07/16/17 19:00 19:32 23:00 03:00 Temp 97.5 97.5 97.5 97.5 Pulse 65 57 70 Resp 18 B/P (MAP) 141/83 (102) 165/88 (113) 146/76 (99) Pulse Ox 97 95 O2 Delivery Room Air Room Air Room Air 07/16/17 07/16/17 07/16/17 07:45 07:56 07:57 Pulse 68 68 B/P (MAP) 160/90 160/90 O2 Delivery Room Air Intake and Output 07/15/17 07/15/17 07/16/17 14:59 22:59 06:59 Intake Total 1310 ml 1120 ml 1000 ml Balance 1310 ml 1120 ml 1000 ml PEDRO VANCE MD Jul 16, 2017 08:27
--- NOTE | 2017-07-16 08:41 | RAD ---
Examination: Ultrasound renal duplex History: History of accelerated hypertension Comparison: None available Technique: Grayscale, color Doppler 2-D, spectral waveform analysis of the bilateral renal arteries were performed. Findings: The right kidney measures 12.3 cm in length. The left kidney measures 12.5 cm in length. The velocity in the right renal artery proximally is 72 cm/s, in the midportion 50 cm/s and in the distal portion 43 cm/s. The velocity in the aorta is 96 cm/s. The velocity in the proximal left renal artery is 87 cm/s, mid left renal artery 48 cm/s and in the distal left renal artery 32 cm/s. The right renal artery to aorta velocity ratio 0.75 and the left renal artery prior to ratio 0.91. The bilateral renal veins are patent. Cystic structures identified in the bilateral kidneys measuring 1.3 cm on the right with thin septation and 2.7 cm on the left likely cysts. Incidental note of gallstones identified. Impression: 1. No evidence of hemodynamic significant stenosis to suggest renal artery hypertension. 2. Bilateral renal cysts. 3. Incidental note of gallbladder stone.
--- NOTE | 2017-07-16 13:35 | PDOC ---
SUBJECTIVE ROS ELISABETH Doing same. Pulled IV out at noc. Woke up to change clothes per CVS: no Orthopnea, no CP RESP: no SOB, no LAINEZ GI: no Nausea, no Vomiting : no Dysuria, no Urgency OBJECTIVE Vital Signs Vital Signs Date Time Temp Pulse Resp B/P (MAP) Pulse Ox O2 Delivery O2 Flow Rate FiO2 07/16/17 10:30 96.3 64 18 149/93 (111) 96 Room Air 96.3 I & 0 Intake and Output 07/16/17 07:00 Intake Total 3430 ml Balance 3430 ml Intake Oral 480 ml IV Total 2950 ml # Voids 5 # Bowel Movements 2 PHYSICAL EXAM Physical Exam General Appearance: Awake Alert Oriented x 3 In no Distress Eyes: VIsion Unchanged Conjunctiva Normal EN: No EN Drainage Mucous Memb. moist Neck: no JVD no JVP Supple no Thyromegaly CVS: S1 S2 no Murmur No Gallop No Rub no Edema Resp: no Rales no Rhonchi n Acc. Muscle use GI: BS +ve NO Bruit Non Tender Non Distended : no CVA tenderness; no Suprapubic Tenderness Assessment & Plan: ELISABETH - suspect due to Better BP control and Diuretics use/ dehydration - Improving with IVf; Dehdyration - probably diuretic induced - IVF as ordered ? Accel HTN - asymptomatic - ve RAD for CONOR; agree with ^ in ARB. watch trend Known BPH - No [place] noted on US Discussed Plan of Care and prognosis etc. at length with family. COMMENT/RELEVANT DATA Meds Current Medications Medications (Trade) Dose Ordered Sig/Luis Armando Start Time Stop Time Status Last Admin Dose Admin Amlodipine Besylate (Norvasc) 5 mg DAILY 07/15/17 11:30 07/16/17 07:57 5 MG Atorvastatin Calcium (Lipitor) 10 mg QHS 07/15/17 21:00 07/15/17 20:37 10 MG Cetirizine HCl (ZyrTEC) 10 mg DAILY 07/15/17 11:30 07/16/17 07:57 10 MG Citalopram Hydrobromide (CeleXA) 40 mg DAILY 07/15/17 11:30 07/16/17 07:57 40 MG Donepezil HCl (Aricept) 10 mg DAILY 07/15/17 11:30 07/16/17 07:57 10 MG Ergocalciferol (Vitamin D2) 50,000 unit WEEKLY 07/22/17 09:00 Fish Oil (Fish Oil) 1,000 mg DAILY 07/15/17 11:30 07/16/17 07:57 1,000 MG Losartan Potassium (Cozaar) 100 mg DAILY 07/17/17 09:00 Magnesium Sulfate/ Dextrose 50 ml @ 25 mls/hr PRN DAILY PRN 07/15/17 12:30 Memantine (Namenda) 10 mg BID 07/15/17 11:30 07/16/17 07:57 10 MG Ondansetron HCl (Zofran) 4 mg PRN Q8HRS PRN 07/14/17 21:15 07/15/17 21:14 DC Pantoprazole Sodium (Protonix) 40 mg QHS 07/15/17 21:00 07/15/17 20:37 40 MG Sodium Chloride 1,000 ml @ 100 mls/hr Q10H 07/16/17 07:30 07/16/17 07:55 100 MLS/HR Lab Laboratory Tests Test 07/16/17 04:10 White Blood Count 5.8 x10^3/uL (4.0-11.0) Red Blood Count 5.29 x10^6/uL (4.30-5.70) Hemoglobin 15.7 g/dL (13.0-17.5) Hematocrit 45.8 % (39.0-53.0) Mean Corpuscular Volume 87 fL (79-100) Mean Corpuscular Hemoglobin 30 pg (25-35) Mean Corpuscular Hemoglobin Concent 34 g/dL (31-37) Red Cell Distribution Width 13.9 % (11.5-14.5) Platelet Count 126 x10^3/uL (140-400) Neutrophils (%) (Auto) 59 % (31-73) Lymphocytes (%) (Auto) 30 % (24-48) Monocytes (%) (Auto) 8 % (0-9) Eosinophils (%) (Auto) 2 % (0-3) Basophils (%) (Auto) 1 % (0-3) Neutrophils # (Auto) 3.4 x10^3uL (1.8-7.7) Lymphocytes # (Auto) 1.8 x10^3/uL (1.0-4.8) Monocytes # (Auto) 0.5 x10^3/uL (0.0-1.1) Eosinophils # (Auto) 0.1 x10^3/uL (0.0-0.7) Basophils # (Auto) 0.0 x10^3/uL (0.0-0.2) Sodium Level 143 mmol/L (136-145) Potassium Level 4.3 mmol/L (3.5-5.1) Chloride Level 107 mmol/L (98-107) Carbon Dioxide Level 24 mmol/L (21-32) Anion Gap 12 (6-14) Blood Urea Nitrogen 48 mg/dL (8-26) Creatinine 3.4 mg/dL (0.7-1.3) Estimated GFR (Cockcroft-Gault) 18.0 Glucose Level 87 mg/dL (70-99) Calcium Level 8.0 mg/dL (8.5-10.1) Phosphorus Level 4.3 mg/dL (2.6-4.7) Magnesium Level 1.7 mg/dL (1.8-2.4) Albumin 3.6 g/dL (3.4-5.0) Other 1. No evidence of hemodynamic significant stenosis to suggest renal artery hypertension. 2. Bilateral renal cysts. 3. Incidental note of gallbladder stone. NICHOLAS CADET MD Jul 16, 2017 13:35
[2017-07-16] MEDS: PANTOPRAZOLE 40 MG TABLET.DR. PO SCH (20:42)
[2017-07-16] MEDS: ATORVASTATIN CALCIUM 10 MG TABLET. PO SCH (20:42)
[2017-07-17 03:00] VITALS: BP 180/90
[2017-07-17] MEDS: IV NORMAL SALINE 1000ML BAG 1,000 ML IV SCH ×3 (03:57→23:30)
[2017-07-17 04:38] LABS: ALBUMIN 3.5 g/dL (3.4-5.0); CALCIUM 8.1 mg/dL (8.5-10.1); CREATININE 2.7 mg/dL (0.7-1.3); GFR 23.5; PHOSPHORUS 3.9 mg/dL (2.6-4.7)
[2017-07-17 07:00] VITALS: BP 155/89
[2017-07-17] MEDS: MAGNESIUM CHLORIDE ER 64 MG TABLET.ER PO SCH ×2 (08:28)
[2017-07-17] MEDS: DONEPEZIL HCL 10 MG TABLET. PO SCH (08:28)
[2017-07-17] MEDS: MEMANTINE 10 MG TABLET. PO SCH ×2 (08:28→21:20)
[2017-07-17] MEDS: CITALOPRAM 20 MG TABLET. PO SCH (08:28)
[2017-07-17] MEDS: CETIRIZINE HCL 10 MG TABLET. PO SCH (08:28)
[2017-07-17] MEDS: amLODIPine BESYLATE 5 MG TABLET PO SCH (08:29)
[2017-07-17] MEDS: LOSARTAN POTASSIUM 50 MG TABLET. PO SCH (08:30)
[2017-07-17] MEDS: OMEGA-3 FATTY ACIDS/FISH OIL 1,000 MG CAPSULE. PO SCH (08:30)
[2017-07-17 11:00] VITALS: BP 172/83
--- NOTE | 2017-07-17 12:18 | PDOC ---
PROGRESS NOTES Subjective Subjective Patient improving but Cr still not at baseline. BP now increasing meds adjusted. Objective Objective Vital Signs Date Time Temp Pulse Resp B/P (MAP) Pulse Ox O2 Delivery O2 Flow Rate FiO2 07/17/17 11:00 97.9 66 19 172/83 (112) 97 Room Air 97.9 Intake and Output 07/17/17 07:00 Intake Total 2200 ml Balance 2200 ml Intake Oral 1200 ml IV Total 1000 ml # Voids 8 # Bowel Movements 2 Physical Exam Abdomen: Normal bowel sounds Heart: Regular rate Extremities: No edema General: Alert Lungs: Clear to auscultation Assessment Assessment Problems Medical Problems: (1) Acute renal failure Status: Acute (2) Alzheimer's dementia Status: Acute 1. Acute renal failure. 2. History of hypertensive emergency. 3. Near syncope. 4. Alzheimer type dementia. 5. Hypertension. 6. High cholesterol. 7. Reflux disease. 8. Benign prostatic hypertrophy. Plan Plan of Care Continue IVF Add Mag Monitor BP increase losartan continue PT/OT Comment Review of Relevant I have reviewed the following items felisha (where applicable) has been applied. Labs Laboratory Tests Test 07/16/17 04:10 07/17/17 04:00 White Blood Count 5.8 x10^3/uL (4.0-11.0) Red Blood Count 5.29 x10^6/uL (4.30-5.70) Hemoglobin 15.7 g/dL (13.0-17.5) Hematocrit 45.8 % (39.0-53.0) Mean Corpuscular Volume 87 fL (79-100) Mean Corpuscular Hemoglobin 30 pg (25-35) Mean Corpuscular Hemoglobin Concent 34 g/dL (31-37) Red Cell Distribution Width 13.9 % (11.5-14.5) Platelet Count 126 x10^3/uL (140-400) Neutrophils (%) (Auto) 59 % (31-73) Lymphocytes (%) (Auto) 30 % (24-48) Monocytes (%) (Auto) 8 % (0-9) Eosinophils (%) (Auto) 2 % (0-3) Basophils (%) (Auto) 1 % (0-3) Neutrophils # (Auto) 3.4 x10^3uL (1.8-7.7) Lymphocytes # (Auto) 1.8 x10^3/uL (1.0-4.8) Monocytes # (Auto) 0.5 x10^3/uL (0.0-1.1) Eosinophils # (Auto) 0.1 x10^3/uL (0.0-0.7) Basophils # (Auto) 0.0 x10^3/uL (0.0-0.2) Sodium Level 143 mmol/L (136-145) 141 mmol/L (136-145) Potassium Level 4.3 mmol/L (3.5-5.1) 4.0 mmol/L (3.5-5.1) Chloride Level 107 mmol/L (98-107) 107 mmol/L (98-107) Carbon Dioxide Level 24 mmol/L (21-32) 23 mmol/L (21-32) Anion Gap 12 (6-14) 11 (6-14) Blood Urea Nitrogen 48 mg/dL (8-26) 39 mg/dL (8-26) Creatinine 3.4 mg/dL (0.7-1.3) 2.7 mg/dL (0.7-1.3) Estimated GFR (Cockcroft-Gault) 18.0 23.5 Glucose Level 87 mg/dL (70-99) 100 mg/dL (70-99) Calcium Level 8.0 mg/dL (8.5-10.1) 8.1 mg/dL (8.5-10.1) Phosphorus Level 4.3 mg/dL (2.6-4.7) 3.9 mg/dL (2.6-4.7) Magnesium Level 1.7 mg/dL (1.8-2.4) 1.5 mg/dL (1.8-2.4) Albumin 3.6 g/dL (3.4-5.0) 3.5 g/dL (3.4-5.0) Laboratory Tests Test 07/17/17 04:00 Sodium Level 141 mmol/L (136-145) Potassium Level 4.0 mmol/L (3.5-5.1) Chloride Level 107 mmol/L (98-107) Carbon Dioxide Level 23 mmol/L (21-32) Anion Gap 11 (6-14) Blood Urea Nitrogen 39 mg/dL (8-26) Creatinine 2.7 mg/dL (0.7-1.3) Estimated GFR (Cockcroft-Gault) 23.5 Glucose Level 100 mg/dL (70-99) Calcium Level 8.1 mg/dL (8.5-10.1) Phosphorus Level 3.9 mg/dL (2.6-4.7) Magnesium Level 1.5 mg/dL (1.8-2.4) Albumin 3.5 g/dL (3.4-5.0) Microbiology 07/14/17 Urine Culture - Final, Complete 07/14/17 Urine Culture Result 1 (BRUNA) - Final, Complete Medications Current Medications Sodium Chloride 1,000 ml @ 1,000 mls/hr 1X ONCE IV Last administered on 07/14 20:31; Start 07/14/17 at 20:15; Stop 07/14/17 at 21:14; Status DC Ondansetron HCl (Zofran) 4 mg PRN Q8HRS PRN IV NAUSEA/VOMITING; Start at 21:15; Stop 07/15/17 at 21:14; Status DC Sodium Chloride 1,000 ml @ 100 mls/hr Q10H IV Last administered on 07/15/17 20:38; Start 07/14/17 at 21:05; Stop 07/15/17 at 21:04; Status DC Amlodipine Besylate (Norvasc) 5 mg DAILY PO Last administered on 07/17/17 08: 29; Start 07/15/17 at 11:30 Losartan Potassium (Cozaar) 50 mg DAILY PO Last administered on 07/16/17 07: 56; Start 07/15/17 at 11:30; Stop 07/16/17 at 13:05; Status DC Fish Oil (Fish Oil) 1,000 mg DAILY PO Last administered on 07/17/17 08:30; Start 07/15/17 at 11:30 Ergocalciferol (Vitamin D2) 50,000 unit WEEKLY PO ; Start 07/22/17 at 09:00 Citalopram Hydrobromide (CeleXA) 40 mg DAILY PO Last administered on 08:28; Start 07/15/17 at 11:30 Cetirizine HCl (ZyrTEC) 10 mg DAILY PO Last administered on 07/17/17 08:28; Start 07/15/17 at 11:30 Pantoprazole Sodium (Protonix) 40 mg QHS PO Last administered on 07/16/17 20: 42; Start 07/15/17 at 21:00 Atorvastatin Calcium (Lipitor) 10 mg QHS PO Last administered on 07/16/17 20: 42; Start 07/15/17 at 21:00 Memantine (Namenda) 10 mg BID PO Last administered on 07/17/17 08:28; Start 07/15/17 at 11:30 Donepezil HCl (Aricept) 10 mg DAILY PO Last administered on 07/17/17 08:28; Start 07/15/17 at 11:30 Magnesium Sulfate/ Dextrose 50 ml @ 25 mls/hr PRN DAILY PRN IV for Mag < 1.7 on am labs; Start 07/15/17 at 12:30 Sodium Chloride 1,000 ml @ 100 mls/hr Q10H IV Last administered on 07/17/17 03:57; Start 07/16/17 at 07:30 Losartan Potassium (Cozaar) 100 mg DAILY PO Last administered on 07/17/17 08: 30; Start 07/17/17 at 09:00 Magnesium Chloride (Mag Delay) 64 mg DAILY PO Last administered on 07/17/17 08:28; Start 07/17/17 at 09:00 Active Scripts Active Reported Fish Oil 1,000 Mg Capsule ([place]-3 Fatty Acids/Fish Oil) 1 Each Capsule 1 Each PO Doxazosin Mesylate 1 Mg Tablet 1 Mg PO DAILY Losartan Potassium 50 Mg Tablet 50 Mg PO DAILY Amlodipine Besylate 5 Mg Tablet 5 Mg PO DAILY Escitalopram Oxalate 20 Mg Tablet 1 Tab PO DAILY Aspirin 81 Mg Tab.chew 81 Mg PO DAILY Vitamin D3 (Cholecalciferol (Vitamin D3)) 50,000 Unit Capsule 50,000 Unit PO WEEKLY Jessica Allergy (Fexofenadine Hcl) 180 Mg Tablet 180 Mg PO DAILY Prilosec (Omeprazole) 20 Mg Capsule.dr 20 Mg PO HS Pravachol (Pravastatin Sodium) 40 Mg Tablet 40 Mg PO HS Vitals/I & O Vital Sign - Last 24 Hours 07/16/17 07/16/17 07/16/17 07/16/17 14:45 19:00 19:00 19:00 Temp 97.5 96.8 97.5 96.8 Pulse 74 58 62 59 Resp 18 18 B/P (MAP) 134/85 (101) 143/81 (101) 147/78 (101) 153/82 (105) Pulse Ox 99 96 O2 Delivery Room Air Room Air 07/16/17 07/16/17 07/17/17 07/17/17 19:10 23:00 03:00 07:00 Temp 97.9 97.6 97.7 97.9 97.6 97.7 Pulse 74 60 54 Resp 18 18 19 B/P (MAP) 174/94 (120) 180/90 (120) 155/89 (111) Pulse Ox 97 94 96 O2 Delivery Room Air Room Air Room Air Room Air 07/17/17 07/17/17 07/17/17 07/17/17 08:29 08:30 08:30 11:00 Temp 97.9 97.9 Pulse 54 54 66 Resp 19 B/P (MAP) 155/89 155/89 172/83 (112) Pulse Ox 97 O2 Delivery Room Air Room Air Intake and Output 07/16/17 07/16/17 07/17/17 15:00 23:00 07:00 Intake Total 660 ml 180 ml 1360 ml Balance 660 ml 180 ml 1360 ml PEDRO VANCE MD Jul 17, 2017 12:18
--- NOTE | 2017-07-17 14:33 | PDOC ---
SUBJECTIVE ROS ELISABETH - doing much better today - feeling much better CVS: no Orthopnea, no CP RESP: no SOB, no LAINEZ GI: no Nausea, no Vomiting : no Dysuria, no Urgency OBJECTIVE Vital Signs Vital Signs Date Time Temp Pulse Resp B/P (MAP) Pulse Ox O2 Delivery O2 Flow Rate FiO2 07/17/17 11:00 97.9 66 19 172/83 (112) 97 Room Air 97.9 I & 0 Intake and Output 07/17/17 07:00 Intake Total 2200 ml Balance 2200 ml Intake Oral 1200 ml IV Total 1000 ml # Voids 8 # Bowel Movements 2 PHYSICAL EXAM Physical Exam General Appearance: Awake Alert Oriented x 3 In no Distress Eyes: VIsion Unchanged Conjunctiva Normal EN: No EN Drainage Mucous Memb. moist Neck: no JVD no JVP Supple no Thyromegaly CVS: S1 S2 no Murmur No Gallop No Rub no Edema Resp: no Rales no Rhonchi n Acc. Muscle use GI: BS +ve NO Bruit Non Tender Non Distended : no CVA tenderness; no Suprapubic Tenderness Assessment & Plan: ELISABETH - Improving with IVf; watch off of IVF Dehdyration - resolved - watch off of IVF HTN - labile but asymptomatic - agree with Rx per Dr Anna - d/w re home BP checkst Known BPH - No [place] noted on US - ? Restart flomax if needed Lowish mag - ? Asso with Thiazide Diuretic use - IV mag as ordered Discussed Plan of Care and prognosis etc. at length with family () COMMENT/RELEVANT DATA Meds Current Medications Medications (Trade) Dose Ordered Sig/Luis Armando Start Time Stop Time Status Last Admin Dose Admin Amlodipine Besylate (Norvasc) 5 mg DAILY 07/15/17 11:30 07/17/17 08:29 5 MG Atorvastatin Calcium (Lipitor) 10 mg QHS 07/15/17 21:00 07/16/17 20:42 10 MG Cetirizine HCl (ZyrTEC) 10 mg DAILY 07/15/17 11:30 07/17/17 08:28 10 MG Citalopram Hydrobromide (CeleXA) 40 mg DAILY 07/15/17 11:30 07/17/17 08:28 40 MG Donepezil HCl (Aricept) 10 mg DAILY 07/15/17 11:30 07/17/17 08:28 10 MG Ergocalciferol (Vitamin D2) 50,000 unit WEEKLY 07/22/17 09:00 Fish Oil (Fish Oil) 1,000 mg DAILY 07/15/17 11:30 07/17/17 08:30 1,000 MG Losartan Potassium (Cozaar) 100 mg DAILY 07/17/17 09:00 07/17/17 08:30 100 MG Magnesium Chloride (Mag Delay) 64 mg DAILY 07/17/17 09:00 07/17/17 08:28 64 MG Magnesium Sulfate/ Dextrose 50 ml @ 25 mls/hr PRN DAILY PRN 07/15/17 12:30 07/17/17 12:24 25 MLS/HR Memantine (Namenda) 10 mg BID 07/15/17 11:30 07/17/17 08:28 10 MG Ondansetron HCl (Zofran) 4 mg PRN Q8HRS PRN 07/14/17 21:15 07/15/17 21:14 DC Pantoprazole Sodium (Protonix) 40 mg QHS 07/15/17 21:00 07/16/17 20:42 40 MG Sodium Chloride 1,000 ml @ 100 mls/hr Q10H 07/16/17 07:30 07/17/17 13:53 100 MLS/HR Lab Laboratory Tests Test 07/17/17 04:00 Sodium Level 141 mmol/L (136-145) Potassium Level 4.0 mmol/L (3.5-5.1) Chloride Level 107 mmol/L (98-107) Carbon Dioxide Level 23 mmol/L (21-32) Anion Gap 11 (6-14) Blood Urea Nitrogen 39 mg/dL (8-26) Creatinine 2.7 mg/dL (0.7-1.3) Estimated GFR (Cockcroft-Gault) 23.5 Glucose Level 100 mg/dL (70-99) Calcium Level 8.1 mg/dL (8.5-10.1) Phosphorus Level 3.9 mg/dL (2.6-4.7) Magnesium Level 1.5 mg/dL (1.8-2.4) Albumin 3.5 g/dL (3.4-5.0) NICHOLAS CADET MD Jul 17, 2017 14:33
[2017-07-17 15:45] VITALS: BP 158/86
[2017-07-17 19:00] VITALS: BP_SYST 182; BP_DIAS 89; BP_DIAS 94
[2017-07-17] MEDS: ATORVASTATIN CALCIUM 10 MG TABLET. PO SCH (21:20)
[2017-07-17] MEDS: PANTOPRAZOLE 40 MG TABLET.DR. PO SCH (21:20)
[2017-07-17 23:00] VITALS: BP 182/94
[2017-07-18 03:00] VITALS: BP 164/94
[2017-07-18 06:31] LABS: ALBUMIN 3.6 g/dL (3.4-5.0); CALCIUM 8.3 mg/dL (8.5-10.1); CREATININE 2.7 mg/dL (0.7-1.3); GFR 23.5; PHOSPHORUS 3.5 mg/dL (2.6-4.7)
[2017-07-18 07:00] VITALS: BP 172/91
[2017-07-18] MEDS: MEMANTINE 10 MG TABLET. PO SCH (08:45)
[2017-07-18] MEDS: MAGNESIUM CHLORIDE ER 64 MG TABLET.ER PO SCH ×2 (08:46)
[2017-07-18] MEDS: amLODIPine BESYLATE 5 MG TABLET PO SCH (08:46)
[2017-07-18] MEDS: OMEGA-3 FATTY ACIDS/FISH OIL 1,000 MG CAPSULE. PO SCH (08:46)
[2017-07-18 08:47] VITALS: BP 172/91
[2017-07-18] MEDS: DONEPEZIL HCL 10 MG TABLET. PO SCH (08:47)
[2017-07-18] MEDS: CETIRIZINE HCL 10 MG TABLET. PO SCH (08:47)
[2017-07-18] MEDS: CITALOPRAM 20 MG TABLET. PO SCH (08:47)
[2017-07-18] MEDS: LOSARTAN POTASSIUM 50 MG TABLET. PO SCH (08:47)
[2017-07-18] MEDS ORDERED: DONE10TA61 PO (09:18)
[2017-07-18] MEDS ORDERED: AMLO5TAB2 PO (09:18)
[2017-07-18] MEDS ORDERED: Magnesium Chloride Er PO (09:18)
[2017-07-18] MEDS ORDERED: MEMA10TA20 PO (09:18)
[2017-07-18] MEDS ORDERED: LOSA50TA6 PO (09:18)
[2017-07-18] MEDS: IV NORMAL SALINE 1000ML BAG 1,000 ML IV SCH (09:30)
[2017-07-22] MEDS ORDERED: ERGOCALCIFEROL (VITAMIN D2) 50,000 UNIT CAPSULE. PO SCH (09:00)
== END 2017-07-18 10:35 | disposition home or self-care (01) | DRG 683 ==
LOC: ER 17:53 → 5 NORTH 21:00
PROVIDERS: ADMIT Family Medicine; ATTEND Family Medicine
DX: N17.9 Acute kidney failure, unspecified (principal); F05 Delirium due to known physiological condition; G30.9 Alzheimer's disease, unspecified; I10 Essential (primary) hypertension; N28.1 Cyst of kidney, acquired; F02.80 Dementia in other diseases classified elsewhere, unspecified severity, without behavioral disturbance, psychotic disturbance, mood disturbance, and anxiety; E78.5 Hyperlipidemia, unspecified; R55 Syncope and collapse; K21.9 Gastro-esophageal reflux disease without esophagitis; K52.9 Noninfective gastroenteritis and colitis, unspecified; N40.1 Benign prostatic hyperplasia with lower urinary tract symptoms; Z80.3 Family history of malignant neoplasm of breast; Z82.49 Family history of ischemic heart disease and other diseases of the circulatory system; Z87.442 Personal history of urinary calculi; F32.9 Major depressive disorder, single episode, unspecified; J30.2 Other seasonal allergic rhinitis
CPT/HCPCS: 36415; 71010; 76770; 80048; 80053; 80069; 81001; 82962; 83735; 84484; 85025; 87086; 93005; 96360; J7030; J7060; 97110; 97116; 99285-25

== ENCOUNTER → 2017-10-29 | Outpatient (CLI) | payer MEDICARE, OTHER ==
[2017-10-29] MEDS: REGADENOSON 0.4 MG/5 ML DISP.SYRIN. IV (09:45)
== END | disposition home or self-care (01) ==
LOC: ECHO 07:49
DX: I48.91 Unspecified atrial fibrillation (principal); I10 Essential (primary) hypertension; I08.3 Combined rheumatic disorders of mitral, aortic and tricuspid valves; R06.00 Dyspnea, unspecified; Z79.01 Long term (current) use of anticoagulants
CPT/HCPCS: 78452; 93017; 93306; 96374; 96375; 96376; A9500; J2785

== ENCOUNTER 2017-11-26 09:03 | Day surgery (SDC) | payer MEDICARE ==
[~2017-11-26 09:03] MED LIST changes: +0.9 % SODIUM CHLORIDE 10 ML DISP.SYRIN. IV; -ASPI-630 PO; -CHOL500050 PO; -DONE10TA7 PO; -DOXA4TAB3 PO; -FEXO180T81 PO; -HYDR-965 PO; +LIDOCAINE 1% PF 2 ML VIAL. ID; -LOSA100T2 PO; -MEMA1CAP3 PO; +MORPHINE SULFATE 4 MG/ML DISP.SYRIN. IV; -OMEP20CA5 PO; -PRAV40TA PO; +PROCHLORPERAZINE 10 MG/2 ML VIAL. IV; +fentaNYL PF VIAL 100 MCG/2 ML VIAL IV
[2017-11-26] MEDS: IV RINGERS,LACTATED 1000ML 1,000 ML IV (09:56)
[2017-11-26] MEDS ORDERED: ePHEDrine PF IN SALINE 50 MG/5 ML DISP.SYRIN IV (10:11)
[2017-11-26] MEDS ORDERED: PROPOFOL 20 ML IV ×2 (10:11→10:12)
[2017-11-26] MEDS ORDERED: LIDOCAINE 2% PF Vial for OR 5 ML VIAL. (10:11)
[2017-11-26 10:31] LABS: ANION GAP 13 (6-14); BLOOD UREA NITROGEN 17 mg/dL (8-26); CALCIUM 8.3 mg/dL (8.5-10.1); CARBON DIOXIDE 25 mmol/L (21-32); CHLORIDE 105 mmol/L (98-107); CREATININE 1.1 mg/dL (0.7-1.3); GFR 66.2; GLUCOSE 98 mg/dL (70-99); MAGNESIUM 1.9 mg/dL (1.8-2.4); POTASSIUM 3.4 mmol/L (3.5-5.1); SODIUM 143 mmol/L (136-145)
[2017-11-26] MEDS: POTASSIUM CHLORIDE 20 MEQ TABLET.ER. PO (11:12)
== END 2017-11-26 11:40 | disposition home or self-care (01) ==
LOC: SURG 09:03
DX: I48.91 Unspecified atrial fibrillation (principal); Z88.1 Allergy status to other antibiotic agents; Z88.8 Allergy status to other drugs, medicaments and biological substances; Z98.890 Other specified postprocedural states; G30.9 Alzheimer's disease, unspecified; F02.80 Dementia in other diseases classified elsewhere, unspecified severity, without behavioral disturbance, psychotic disturbance, mood disturbance, and anxiety; E78.00 Pure hypercholesterolemia, unspecified; I10 Essential (primary) hypertension; G47.30 Sleep apnea, unspecified; Z90.49 Acquired absence of other specified parts of digestive tract; K21.9 Gastro-esophageal reflux disease without esophagitis; Z87.442 Personal history of urinary calculi; N40.0 Benign prostatic hyperplasia without lower urinary tract symptoms; F32.9 Major depressive disorder, single episode, unspecified; Z79.82 Long term (current) use of aspirin; Z79.899 Other long term (current) drug therapy; Z82.49 Family history of ischemic heart disease and other diseases of the circulatory system; Z80.3 Family history of malignant neoplasm of breast
CPT/HCPCS: 36415; 80048; 83735; 92960; 93005; J2704

== ENCOUNTER → 2018-02-01 | Day surgery (SDC) | payer MEDICARE ==
[~2018-02-01] MED LIST changes: +IV RINGERS,LACTATED 1000ML 1,000 ML IV; -LIDOCAINE 1% PF 2 ML VIAL. ID; +LIDOCAINE 2% PF Vial for OR 5 ML VIAL.; -MORPHINE SULFATE 4 MG/ML DISP.SYRIN. IV; -PROCHLORPERAZINE 10 MG/2 ML VIAL. IV; +PROPOFOL 0 ML IV; -fentaNYL PF VIAL 100 MCG/2 ML VIAL IV
== END | disposition home or self-care (01) ==
LOC: SURG 11:39
DX: I45.10 Unspecified right bundle-branch block (principal); Z53.8 Procedure and treatment not carried out for other reasons; I48.91 Unspecified atrial fibrillation; Z88.1 Allergy status to other antibiotic agents; Z88.8 Allergy status to other drugs, medicaments and biological substances; G30.9 Alzheimer's disease, unspecified; F02.80 Dementia in other diseases classified elsewhere, unspecified severity, without behavioral disturbance, psychotic disturbance, mood disturbance, and anxiety; Z98.890 Other specified postprocedural states; E78.00 Pure hypercholesterolemia, unspecified; I10 Essential (primary) hypertension; K21.9 Gastro-esophageal reflux disease without esophagitis; Z87.442 Personal history of urinary calculi; N40.0 Benign prostatic hyperplasia without lower urinary tract symptoms; F32.9 Major depressive disorder, single episode, unspecified; Z90.49 Acquired absence of other specified parts of digestive tract
CPT/HCPCS: 93005; J2001; J2704

== ENCOUNTER 2018-08-15 23:17 | Emergency (ER) | payer MEDICARE ==
[~2018-08-15] VITALS: Ht 195.6 cm; Wt 102.1 kg
[2018-08-15 23:17] VITALS: BP 149/83
[~2018-08-15 23:17] MED LIST changes: -0.9 % SODIUM CHLORIDE 10 ML DISP.SYRIN. IV; +AMLO10TA4 PO; +AMLO5TAB7 PO; +APIX5TAB PO; +ASPI-630 PO; +CHOL10003 PO; +CHOL500050 PO; +DONE10TA61 PO; +DONE10TA7 PO; +DOXA1TAB2 PO; +DOXA4TAB3 PO; +ESCITALOPRAM OX20 MG PO; +FEXO180T81 PO; +FLUT9.9S NS; +HYDR-3165 PO; -IV RINGERS,LACTATED 1000ML 1,000 ML IV; -LIDOCAINE 2% PF Vial for OR 5 ML VIAL.; +LOSA-73 PO; +LOSA100T2 PO; +MEMA10TA20 PO; +MEMA1CAP3 PO; +Magnesium Chloride Er PO; +OMEG1CAP6 PO; +OMEP20CA5 PO; +PRAV40TA PO; -PROPOFOL 0 ML IV
--- NOTE | 2018-08-15 23:44 | PHYS DOC ---
Past Medical History Past Medical History: Depression, GERD, Hypertension, Other Additional Past Medical Histor: ALZHEIMER'S Past Surgical History: No Surgical History Alcohol Use: None Drug Use: None Adult General Chief Complaint Chief Complaint: NEAR SYNCOPE HPI HPI Patient is a 72 year old male presents via EMS for evaluation of syncopal episode that occurred at home just prior to arrival. Upon arrival patient is laughing and joking, no signs of distress, he states he was cleaning up under the stairs which is quite deon, he started to feel lightheaded and had a very brief syncopal episode. His states he leaned back against the wall, he did not respond to her for 1-2 seconds. Patient reports this has happened in the past. He has no complaints at this time. Denies chest pain or abdominal pain or shortness of air. Patient has history of A. fib, takes Eliquis Review of Systems Review of Systems Constitutional: Denies fever or chills [] Eyes: Denies change in visual acuity, redness, or eye pain [] HENT: Denies nasal congestion or sore throat [] Respiratory: Denies cough or shortness of breath [] Cardiovascular: No additional information not addressed in HPI [] GI: Denies abdominal pain, nausea, vomiting, bloody stools or diarrhea [] : Denies dysuria or hematuria [] Musculoskeletal: Denies back pain or joint pain [] Integument: Denies rash or skin lesions [] Neurologic: Denies headache, focal weakness or sensory changes [] Endocrine: Denies polyuria or polydipsia [] All other systems were reviewed and found to be within normal limits, except as documented in this note. Current Medications Current Medications Current Medications Medications (Trade) Dose Ordered Sig/Luis Armando Start Time Stop Time Status Last Admin Dose Admin Potassium Chloride (Klor-Con) 40 meq 1X ONCE 08/16/18 00:45 08/16/18 00:46 Allergies Allergies Allergies Coded Allergies Type Severity Reaction Last Updated Verified Sulfa (Sulfonamide Antibiotics) Adverse Reaction Intermediate "SHAKES" Yes meloxicam Adverse Reaction Intermediate "SHAKES" 02/01/18 Yes SIGRID Inhibitors Adverse Reaction Mild COUGH 02/01/18 Yes Physical Exam Physical Exam Constitutional: Well developed, well nourished, no acute distress, non-toxic appearance. [] HENT: Normocephalic, atraumatic, nose normal. [] Eyes: PERRLA, EOMI, conjunctiva normal, no discharge. [] Neck: Normal range of motion, no tenderness, supple, no stridor. [] Cardiovascular:Heart rate regular rhythm, no murmur [] Lungs & Thorax: Bilateral breath sounds clear to auscultation [] Skin: Warm, dry, no erythema, no rash. [] Extremities: No tenderness, no cyanosis, no clubbing, ROM intact, no edema. [] Neurologic: Alert and oriented X 3, normal motor function, normal sensory function, no focal deficits noted. [] Psychologic: Affect normal, judgement normal, mood normal. [] Current Patient Data Vital Signs Vital Signs Date Time Temp Pulse Resp B/P (MAP) Pulse Ox O2 Delivery O2 Flow Rate FiO2 08/15/18 23:17 98.2 71 18 149/83 (105) 98 Room Air 98.2 Lab Values Laboratory Tests Test 08/16/18 00:03 White Blood Count 4.9 x10^3/uL (4.0-11.0) Red Blood Count 5.05 x10^6/uL (4.30-5.70) Hemoglobin 15.6 g/dL (13.0-17.5) Hematocrit 44.9 % (39.0-53.0) Mean Corpuscular Volume 89 fL (79-100) Mean Corpuscular Hemoglobin 31 pg (25-35) Mean Corpuscular Hemoglobin Concent 35 g/dL (31-37) Red Cell Distribution Width 12.8 % (11.5-14.5) Platelet Count 158 x10^3/uL (140-400) Neutrophils (%) (Auto) 70 % (31-73) Lymphocytes (%) (Auto) 22 % (24-48) L Monocytes (%) (Auto) 6 % (0-9) Eosinophils (%) (Auto) 1 % (0-3) Basophils (%) (Auto) 1 % (0-3) Neutrophils # (Auto) 3.5 x10^3uL (1.8-7.7) Lymphocytes # (Auto) 1.1 x10^3/uL (1.0-4.8) Monocytes # (Auto) 0.3 x10^3/uL (0.0-1.1) Eosinophils # (Auto) 0.0 x10^3/uL (0.0-0.7) Basophils # (Auto) 0.1 x10^3/uL (0.0-0.2) Sodium Level 141 mmol/L (136-145) Potassium Level 3.0 mmol/L (3.5-5.1) L Chloride Level 105 mmol/L (98-107) Carbon Dioxide Level 25 mmol/L (21-32) Anion Gap 11 (6-14) Blood Urea Nitrogen 18 mg/dL (8-26) Creatinine 1.5 mg/dL (0.7-1.3) H Estimated GFR (Cockcroft-Gault) 46.3 BUN/Creatinine Ratio 12 (6-20) Glucose Level 131 mg/dL (70-99) H Calcium Level 9.0 mg/dL (8.5-10.1) Magnesium Level 2.0 mg/dL (1.8-2.4) Total Bilirubin 0.8 mg/dL (0.2-1.0) Aspartate Amino Transferase (AST) 23 U/L (15-37) Alanine Aminotransferase (ALT) 32 U/L (16-63) Alkaline Phosphatase 67 U/L (46-116) Creatine Kinase 124 U/L (39-308) Creatine Kinase MB (Mass) 2.8 ng/mL (0.0-3.6) Creatine Kinase MB Relative Index 2.3 % (0-4) Troponin I Quantitative < 0.017 ng/mL (0.000-0.055) Total Protein 7.0 g/dL (6.4-8.2) Albumin 3.6 g/dL (3.4-5.0) Albumin/Globulin Ratio 1.1 (1.0-1.7) Laboratory Tests 08/16/18 00:03 Laboratory Tests 08/16/18 00:03 EKG EKG [EKG interpreted by emergency room physician heart rate 68, no STEMI or acute changes, sinus rhythm with prolonged DE interval] Radiology/Procedures Radiology/Procedures [] Course & Med Decision Making Course & Med Decision Making Pertinent Labs and Imaging studies reviewed. (See chart for details) [] Dragon Disclaimer Dragon Disclaimer This electronic medical record was generated, in whole or in part, using a voice recognition dictation system. Departure Departure Impression: Primary Impression: Syncope Additional Impression: Hypokalemia Disposition: 01 HOME, SELF-CARE Condition: STABLE Referrals: PEDRO VANCE MD (PCP) Patient Instructions: Hypokalemia, Syncope Scripts Potassium Chloride (POTASSIUM CHLORIDE) 20 Meq Tablet.er 20 MEQ PO DAILY for 7 Days, #7 TAB.SR Prov: ROSE CLARK APRN 08/16/18 Problem Qualifiers ROSE CLARK APRN Aug 15, 2018 23:44
[2018-08-16 00:20] LABS: BASO # 0.1 x10^3/uL (0.0-0.2); BASO % 1 % (0-3); EOS % 1 % (0-3); HEMATOCRIT 44.9 % (39.0-53.0); HEMOGLOBIN 15.6 g/dL (13.0-17.5); LYMPH # 1.1 x10^3/uL (1.0-4.8); LYMPH % 22 % (24-48); MEAN CORPUSCULAR HEMOGLOBIN 31 pg (25-35); MEAN CORPUSCULAR HGB CONC 35 g/dL (31-37); MEAN CORPUSCULAR VOLUME 89 fL (79-100); MONO # 0.3 x10^3/uL (0.0-1.1); MONO % 6 % (0-9); NEUT # 3.5 x10^3uL (1.8-7.7); NEUT % 70 % (31-73); PLATELET COUNT 158 x10^3/uL (140-400); RED BLOOD COUNT 5.05 x10^6/uL (4.30-5.70); RED CELL DISTRIBUTION WIDTH 12.8 % (11.5-14.5); WHITE BLOOD COUNT 4.9 x10^3/uL (4.0-11.0)
[2018-08-16 00:30] LABS: CREATININE 1.5 mg/dL (0.7-1.3); GFR 46.3
[2018-08-16 00:38] LABS: ALBUMIN 3.6 g/dL (3.4-5.0); ALBUMIN/GLOBULIN RATIO 1.1 (1.0-1.7); TOTAL BILIRUBIN 0.8 mg/dL (0.2-1.0)
[2018-08-16] MEDS ORDERED: POTA20TA82 PO (00:45)
[2018-08-16] MEDS ORDERED: POTASSIUM CHLORIDE 20 MEQ TABLET.ER. PO ONE (00:45)
--- NOTE | 2018-08-16 06:55 | EKG ---
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
== END 2018-08-16 01:10 | disposition home or self-care (01) ==
LOC: ER 23:17
DX: R55 Syncope and collapse (principal); E87.6 Hypokalemia; K21.9 Gastro-esophageal reflux disease without esophagitis; I10 Essential (primary) hypertension; G30.9 Alzheimer's disease, unspecified; F02.80 Dementia in other diseases classified elsewhere, unspecified severity, without behavioral disturbance, psychotic disturbance, mood disturbance, and anxiety; Z88.2 Allergy status to sulfonamides; Z88.8 Allergy status to other drugs, medicaments and biological substances
CPT/HCPCS: 23650; 36415; 80053; 82553; 83735; 84484; 85025; 93005; 96365; 96375; 99284; 99285-25

== ENCOUNTER → 2019-03-11 | Outpatient (CLI) | payer MEDICARE ==
[~2019-03-11] MED LIST changes: +AMLO5TAB10 PO; -AMLO5TAB7 PO; +POTA20TA82 PO
--- NOTE | 2019-03-11 12:54 | CARD ---
MR#: [id number] Date of Study: 03/11/2019 Ordering Physician: AZEB MAZARIEGOS, Referring Physician: AZEB MAZARIEGOS, Tech: Angelique Stallings APPROVED REPORT EXAM: Two-dimensional and M-mode echocardiogram with Doppler and color Doppler. Other Information Quality : AverageHR: 52bpm INDICATION Atrial Fibrillation RISK FACTORS Hypertension 2D DIMENSIONS RVDd4.7 (2.9-3.5cm)Left Atrium(2D)3.2 (1.6-4.0cm) IVSd1.2 (0.7-1.1cm)Aortic Root(2D)3.7 (2.0-3.7cm) LVDd5.5 (3.9-5.9cm)LVOT Diameter2.2 (1.8-2.4cm) PWd1.2 (0.7-1.1cm)LVDs3.2 (2.5-4.0cm) FS (%) 41.5 %SV107.9 ml Aortic Valve AoV Peak Luiz.117.5cm/sAoV VTI24.8cm AO Peak GR.5.5mmHgLVOT Peak Luiz.81.2cm/s LVOT VTI 18.26cmAO Mean GR.3mmHg JACKELIN (VMAX)1.48wp2IBG (VTI)2.89cm2 AI P 1/2 Qtma6883sj Mitral Valve MV E Zqcebmgs85.3cm/sMV DECEL GSHR378zi MV A Opvjtffa57.4cm/sMV DWS06jl E/A Ratio1.1MVA (PHT)3.08cm2 TDI E/Lateral E'7.2E/Medial E'9.1 Pulmonary Valve PV Peak Ilfkrozk94.6cm/sPV Peak Grad.2mmHg Tricuspid Valve TR P. Nhikqjeg050cl/sRAP SALWUDJX9zaTv TR Peak Gr.39pcDgOFQZ74naOq Pulmonary Vein S1 Xzowqgtb44.8cm/sD2 Sicpsdan61.9cm/s PVa oiwragdy737gypb LEFT VENTRICLE The left ventricle is normal size. There is mild concentric left ventricular hypertrophy. The left ve ntricular systolic function is normal. Left ventricular ejection fraction is 55-60%. There is normal LV segmental wall motion. Transmitral Doppler flow pattern is Grade II-pseudonormal filling dynamics. RIGHT VENTRICLE The right ventricle is normal size. There is normal right ventricular wall thickness. The right ventr icular systolic function is normal. ATRIA The left atrium is mildly dilated. The right atrium is mildly dilated. The interatrial septum is inta ct with no evidence for an atrial septal defect or patent foramen ovale as noted on 2-D or Doppler im aging. AORTIC VALVE The aortic valve is normal in structure and function. Doppler and Color Flow revealed mild aortic reg urgitation. There is no significant aortic valvular stenosis. MITRAL VALVE The mitral valve is normal in structure and function. There is no evidence of mitral valve prolapse. There is no mitral valve stenosis. Doppler and Color-flow revealed trace mitral regurgitation. TRICUSPID VALVE The tricuspid valve is normal in structure and function. Doppler and Color Flow revealed trace tricus pid regurgitation with an estimated PAP of 32 mmHg. There is no tricuspid valve stenosis. PULMONIC VALVE The pulmonary valve is normal in structure and function. Doppler and Color Flow revealed mild pulmoni c valvular regurgitation. GREAT VESSELS The aortic root is normal in size. The IVC was not visualized. PERICARDIAL EFFUSION There is no evidence of significant pericardial effusion. Critical Notification Critical Value: No <Conclusion> The left ventricle is normal size. The left ventricular systolic function is normal. Left ventricular ejection fraction is 55-60%. There is mild concentric left ventricular hypertrophy. There is no significant aortic valvular stenosis. Doppler and Color Flow revealed mild aortic regurgitation. Doppler and Color-flow revealed trace mitral regurgitation. Doppler and Color Flow revealed trace tricuspid regurgitation with an estimated PAP of 32 mmHg. Signed by : Tony Uriostegui MD Electronically Approved : 03/11/2019 12:53:50
== END | disposition home or self-care (01) ==
LOC: ECHO 09:55
PROVIDERS: ATTEND Internal Medicine Cardiovascular Disease
DX: I08.8 Other rheumatic multiple valve diseases (principal); I48.91 Unspecified atrial fibrillation; I10 Essential (primary) hypertension
CPT/HCPCS: 93306

== ENCOUNTER → 2020-06-23 | Outpatient (CLI) | payer MEDICARE ==
[~2020-06-23] MED LIST changes: +AMLO-186 PO; -AMLO5TAB10 PO; -MEMA10TA20 PO; +MEMA10TA56 PO; +POTA20TA4 PO; -POTA20TA82 PO
--- NOTE | 2020-06-24 11:28 | CARD ---
MR#: [id number] Date of Study: 06/23/2020 Ordering Physician: AZEB MAZARIEGOS, Referring Physician: AZEB MAZARIEGOS, Tech: Ela Denise PAVAN APPROVED REPORT EXAM: Two-dimensional and M-mode echocardiogram with Doppler and color Doppler. Other Information Quality : GoodHR: 63bpm Rhythm : NSR INDICATION Afib. 2D DIMENSIONS RVDd3.0 (2.9-3.5cm)IVSd1.3 (0.7-1.1cm) Aortic Root(2D)4.0 (2.0-3.7cm)LVDd4.3 (3.9-5.9cm) LVOT Diameter2.4 (1.8-2.4cm)PWd1.1 (0.7-1.1cm) LVDs3.4 (2.5-4.0cm)FS (%) 20.9 % SV35.6 mlLVEF(%)42.8 (>50%) Aortic Valve AoV Peak Luiz.129.3cm/Albert Peak GR.6.7mmHg LVOT Peak Luiz.98.9cm/sAVA (VMAX)3.53cm2 Mitral Valve MV E Ibwqenii66.2cm/sMV DECEL NIUA923ll MV A Tcrclyid17.8cm/sE/A Ratio0.6 MV A Pwjorkor754jv Pulmonary Valve PV Peak Whvirlni49.1cm/s Tricuspid Valve TR P. Qqbdmbxg779kz/sTR Peak Gr.20mmHg Pulmonary Vein S1 Afexmpem54.0cm/sD2 Cdjtvpwz08.1cm/s LEFT VENTRICLE The left ventricle is normal size. Mild basal septal hypertrophy. Left ventricle systolic function is normal. The Ejection Fraction is 55%. There is grossly normal LV segmental wall motion. Transmitral Doppler flow pattern is Grade I-abnormal relaxation pattern. RIGHT VENTRICLE The right ventricle is normal size. The right ventricular systolic function is normal. ATRIA The left atrium is mildly dilated. The right atrium size is normal. The interatrial septum is intact with no evidence for an atrial septal defect or patent foramen ovale as noted on 2-D or Doppler imagi ng. AORTIC VALVE The aortic valve is normal in structure and function. Mild to moderate aortic regurgitation. No aorti c valvular stenosis. MITRAL VALVE The mitral valve is normal in structure and function. There is no mitral valve stenosis. No mitral va lve regurgitation noted. TRICUSPID VALVE The tricuspid valve is normal in structure and function. Trace to mild tricuspid regurgitation. The P A pressure was estimated at 25mmHg There is no tricuspid valve stenosis. PULMONIC VALVE Mild pulmonic valvular regurgitation. There is no pulmonic valvular stenosis. GREAT VESSELS The aortic root is dilated at the level of the sinuses (4.0cm). The ascending aorta measures at the u pper limits of normal. The IVC was not visualized. PERICARDIAL EFFUSION There is no evidence of significant pericardial effusion. Critical Notification Critical Value: No <Conclusion> Left ventricle systolic function is normal. The Ejection Fraction is 55%. There is grossly normal LV segmental wall motion. Mild to moderate aortic regurgitation. Trace to mild tricuspid regurgitation. The PA pressure was estimated at 25mmHg Signed by : Saturnino De León, Electronically Approved : 06/24/2020 11:26:47
== END ==
LOC: ECHO 13:52
PROVIDERS: ATTEND Internal Medicine Cardiovascular Disease
DX: I08.8 Other rheumatic multiple valve diseases (principal); I48.91 Unspecified atrial fibrillation
CPT/HCPCS: 93306

== ENCOUNTER 2021-03-10 20:39 | Inpatient (IN) | payer MEDICARE, OTHER ==
[~2021-03-10] VITALS: Ht 195.6 cm; Wt 106.0 kg
[2021-03-10] MEDS ORDERED: IV NORMAL SALINE 1000ML BAG 1,000 ML IV ONE (21:00)
[2021-03-10 21:14] LABS: BASO # 0.1 x10^3/uL (0.0-0.2); BASO % 1 % (0-3); EOS # 0.1 x10^3/uL (0.0-0.7); EOS % 2 % (0-3); HEMOGLOBIN 16.5 g/dL (13.0-17.5); LYMPH # 1.3 x10^3/uL (1.0-4.8); LYMPH % 25 % (24-48); MEAN CORPUSCULAR HEMOGLOBIN 33 pg (25-35); MEAN CORPUSCULAR HGB CONC 35 g/dL (31-37); MEAN CORPUSCULAR VOLUME 93 fL (79-100); MONO # 0.3 x10^3/uL (0.0-1.1); MONO % 7 % (0-9); NEUT # 3.4 x10^3/uL (1.8-7.7); NEUT % 66 % (31-73); PLATELET COUNT 137 x10^3/uL (140-400); RED BLOOD COUNT 5.07 x10^6/uL (4.30-5.70); RED CELL DISTRIBUTION WIDTH 13.6 % (11.5-14.5); WHITE BLOOD COUNT 5.2 x10^3/uL (4.0-11.0)
[2021-03-10 21:16] LABS: BILIRUBIN,URINE SMALL (NEG); CLARITY,URINE CLEAR; COLOR,URINE AMBER; NITRITE,URINE NEGATIVE (NEG); PH,URINE 7.5 (<5.0-8.0); PROTEIN,URINE 30 mg/dL (NEG-TRACE)
[2021-03-10 21:21] LABS: BARBITURATES NEG (NEG); BENZODIAZEPINES NEG (NEG); CANNABINOIDS NEG (NEG); COCAINE NEG (NEG); METHADONE NEG (NEG); OPIATES NEG (NEG); PHENCYCLIDINE NEG (NEG)
[2021-03-10 21:22] LABS: HYALINE CASTS, URINE MODERATE /HPF
[2021-03-10 21:23] LABS: AMPHETAMINE/METHAMPHETAMINE NEG (NEG); BACTERIA,URINE 0 /HPF (0-FEW); RBC,URINE OCC /HPF (0-2); WBC,URINE OCC /HPF (0-4)
--- NOTE | 2021-03-10 21:24 | RAD ---
Exam: Chest one view INDICATION: Syncope TECHNIQUE: Frontal view of chest Comparisons: None FINDINGS: The cardiomediastinal silhouette and pulmonary vessels are within normal limits. The lung and pleural spaces are clear. IMPRESSION: No acute cardiopulmonary process. Electronically signed by: Abraham Morales MD (03/10/2021 9:21 PM) DUSTIN
[2021-03-10 21:34] LABS: CALCIUM 8.3 mg/dL (8.5-10.1); CREATININE 1.6 mg/dL (0.7-1.3); GFR 42.6; POTASSIUM 3.3 mmol/L (3.5-5.1)
[2021-03-10 21:45] LABS: ALBUMIN 3.2 g/dL (3.4-5.0); ALBUMIN/GLOBULIN RATIO 1.1 (1.0-1.7); MAGNESIUM 1.9 mg/dL (1.8-2.4); TOTAL BILIRUBIN 0.8 mg/dL (0.2-1.0)
--- NOTE | 2021-03-10 21:55 | RAD ---
Exam: CT head and cervical spine INDICATION: Syncope, pain, fall TECHNIQUE: Sequential axial images through the head and cervical spine were obtained without the admi nistration of IV contrast. Exposure: One or more of the following in the visualized dose reduction techniques were utilized for this examination: 1. Automated exposure control 2. Adjustment of the MA and/or KV according to patient size 3. Use of iterative of reconstructive technique Comparisons: None FINDINGS: Head: No focal parenchymal lesion or hemorrhage is identified. There is no midline shift or sulcal effaceme nt. Patchy hypodensity in the periventricular white matter. No acute vascular territory infarction is burak ntified. Wilson-white distinction is preserved. The ventricular system is within normal limits without compression hydrocephalus. The basal cisterns are well maintained. The visualized portions of the paranasal sinuses and mastoid air cells are well-pneumatized. No acute fractures. Cervical spine: Vertebral body heights are well-maintained. Grade 1 retrolisthesis of C4 on C5. Fracture to the cervical spine is not identified. No significant spondylotic change in cervical spine. Visualized paraspinal soft tissues are unremarkable. IMPRESSION: 1. No acute intracranial abnormality. 2. Negative CT C-spine for acute traumatic injury. Electronically signed by: Abraham Morales MD (03/10/2021 9:53 PM) [facility]
[2021-03-10] MEDS ORDERED: ACETAMINOPHEN 325 MG TABLET. PO PRN ×2 (22:30→23:15)
[2021-03-10] MEDS ORDERED: ONDANSETRON PF 4 MG/2 ML VIAL. IVP PRN ×2 (22:30→23:15)
--- NOTE | 2021-03-10 23:02 | PHYS DOC ---
Past Medical History Past Medical History: A-Fib, Dementia, Depression, GERD, Hypertension, Other Additional Past Medical Histor: ALZHEIMER'S Past Surgical History: Appendectomy, Tonsillectomy, Other Additional Past Surgical Histo: ear tumor removed Smoking Status: Never Smoker Alcohol Use: None Drug Use: None General Adult EDM: Chief Complaint: NEAR SYNCOPE HPI: HPI: Patient is a 75 year old male with history of A. fib, hypertension, dementia, depression, who presents the ED today by EMS to be evaluated for a near syncope event. EMS is not clear about the story. Patient's came back to the ED later. She states patient has been in bed most of the day today which is sometimes not unusual for him unfortunately in the evening he soiled his pants with urine which is unusual for you. states she attempted to help patient get out of bed, patient was very weak. She states she was able to get him to the bathroom to use the toilet. Patient had diarrhea and vomiting right away. states she tried to get patient up off the toilet to try and clean them up, she stated patient was very weak and could not get up off the toilet, she states she had to call for help via EMS. She states typically patient is able to get up and walk by himself but since yesterday he has gotten progressively weak. She states patient was very pale when he was sitting on the toilet after vomiting and having diarrhea. She states patient almost passed out. Denies patient falling. Denies patient having a seizure. Review of Systems: Review of Systems: Constitutional: Denies fever or chills. [] Eyes: Denies change in visual acuity. [] HENT: Denies nasal congestion or sore throat. [] Respiratory: Denies cough or shortness of breath. [] Cardiovascular: Denies chest pain or edema. [] GI: Reports vomiting and diarrhea denies abdominal pain, bloody stools ] : Denies dysuria. [] Musculoskeletal: Denies back pain or joint pain. [] Integument: Denies rash. [] Neurologic: Reports near syncope episode. Denies headache, focal weakness or sensory changes. [] ] Psychiatric: Denies depression or anxiety. [] Heart Score: C/O Chest Pain: N/A Risk Factors: Risk Factors: DM, Current or recent (<one month) smoker, HTN, HLP, family history of CAD, obesity. Risk Scores: Score 0 - 3: 2.5% MACE over next 6 weeks - Discharge Home Score 4 - 6: 20.3% MACE over next 6 weeks - Admit for Clinical Observation Score 7 - 10: 72.7% MACE over next 6 weeks - Early Invasive Strategies Current Medications: Current Medications Medications (Trade) Dose Ordered Sig/Luis Armando Start Time Stop Time Status Last Admin Dose Admin Acetaminophen (Tylenol) 650 mg PRN Q6HRS PRN 03/10/21 22:30 Ondansetron HCl (Zofran) 4 mg PRN Q4HRS PRN 03/10/21 22:30 Sodium Chloride 1,000 ml @ 1,000 mls/hr 1X ONCE 03/10/21 21:00 03/10/21 21:59 DC 03/10/21 21:00 1,000 MLS/HR Allergies: Allergies: Allergies Coded Allergies Type Severity Reaction Last Updated Verified Sulfa (Sulfonamide Antibiotics) Allergy Intermediate "SHAKES" 03/06/19 Yes meloxicam Allergy Intermediate "SHAKES" 03/06/19 Yes SIGRID Inhibitors Adverse Reaction Mild COUGH 02/01/18 Yes Physical Exam: PE: Constitutional: Well developed, well nourished, no acute distress, non-toxic appearance. [] HENT: Normocephalic, atraumatic, bilateral external ears normal, oropharynx moist, no oral exudates, nose normal. [] Eyes: PERRLA, EOMI, conjunctiva normal, no discharge. [] Neck: Normal range of motion, no tenderness, supple, no stridor. [] Cardiovascular:Heart rate regular rhythm, no murmur [] Lungs & Thorax: Bilateral breath sounds clear to auscultation [] Abdomen: Bowel sounds normal, soft, no tenderness, no masses, no pulsatile masses. [] Skin: Warm, dry, no erythema, no rash. [] Back: No tenderness, no CVA tenderness. [] Extremities: No tenderness, no cyanosis, no clubbing, ROM intact, no edema. [] Neurologic: Alert and oriented X 3, normal motor function, normal sensory function, no focal deficits noted. [] Psychologic: Affect normal, judgement normal, mood normal. [] Current Patient Data: Labs: Laboratory Tests Test 03/10/21 20:54 03/10/21 21:06 White Blood Count 5.2 x10^3/uL (4.0-11.0) Red Blood Count 5.07 x10^6/uL (4.30-5.70) Hemoglobin 16.5 g/dL (13.0-17.5) Hematocrit 47.0 % (39.0-53.0) Mean Corpuscular Volume 93 fL (79-100) Mean Corpuscular Hemoglobin 33 pg (25-35) Mean Corpuscular Hemoglobin Concent 35 g/dL (31-37) Red Cell Distribution Width 13.6 % (11.5-14.5) Platelet Count 137 x10^3/uL (140-400) L Neutrophils (%) (Auto) 66 % (31-73) Lymphocytes (%) (Auto) 25 % (24-48) Monocytes (%) (Auto) 7 % (0-9) Eosinophils (%) (Auto) 2 % (0-3) Basophils (%) (Auto) 1 % (0-3) Neutrophils # (Auto) 3.4 x10^3/uL (1.8-7.7) Lymphocytes # (Auto) 1.3 x10^3/uL (1.0-4.8) Monocytes # (Auto) 0.3 x10^3/uL (0.0-1.1) Eosinophils # (Auto) 0.1 x10^3/uL (0.0-0.7) Basophils # (Auto) 0.1 x10^3/uL (0.0-0.2) Sodium Level 141 mmol/L (136-145) Potassium Level 3.3 mmol/L (3.5-5.1) L Chloride Level 107 mmol/L (98-107) Carbon Dioxide Level 24 mmol/L (21-32) Anion Gap 10 (6-14) Blood Urea Nitrogen 15 mg/dL (8-26) Creatinine 1.6 mg/dL (0.7-1.3) H Estimated GFR (Cockcroft-Gault) 42.6 BUN/Creatinine Ratio 9 (6-20) Glucose Level 137 mg/dL (70-99) H Lactic Acid Level 3.1 mmol/L (0.4-2.0) H Calcium Level 8.3 mg/dL (8.5-10.1) L Magnesium Level 1.9 mg/dL (1.8-2.4) Total Bilirubin 0.8 mg/dL (0.2-1.0) Aspartate Amino Transferase (AST) 22 U/L (15-37) Alanine Aminotransferase (ALT) 17 U/L (16-63) Alkaline Phosphatase 64 U/L (46-116) Troponin I Quantitative < 0.017 ng/mL (0.000-0.055) EC-Gky-I-Type Natriuretic Peptide 711 pg/mL (0-124) H Total Protein 6.0 g/dL (6.4-8.2) L Albumin 3.2 g/dL (3.4-5.0) L Albumin/Globulin Ratio 1.1 (1.0-1.7) Thyroid Stimulating Hormone (TSH) 2.176 uIU/mL (0.358-3.74) SARS-CoV-2 Antigen (Rapid) Negative (NEGATIVE) Urine Collection Type U cath Urine Color Tiffanie Urine Clarity Clear Urine pH 7.5 (<5.0-8.0) Urine Specific Holliday 1.020 (1.000-1.030) Urine Protein 30 mg/dL (NEG-TRACE) Urine Glucose (UA) Negative mg/dL (NEG) Urine Ketones (Stick) Trace mg/dL (NEG) Urine Blood Negative (NEG) Urine Nitrite Negative (NEG) Urine Bilirubin Small (NEG) Urine Urobilinogen Dipstick 1.0 mg/dL (0.2 mg/dL) Urine Leukocyte Esterase Trace (NEG) Urine RBC Occ /HPF (0-2) Urine WBC Occ /HPF (0-4) Urine Renal Epithelial Cells Few /LPF Urine Bacteria 0 /HPF (0-FEW) Urine Hyaline Casts Moderate /HPF Urine Mucus Mod /LPF Urine Opiates Screen Neg (NEG) Urine Methadone Screen Neg (NEG) Urine Barbiturates Neg (NEG) Urine Phencyclidine Screen Neg (NEG) Urine Amphetamine/Methamphetamine Neg (NEG) Urine Benzodiazepines Screen Neg (NEG) Urine Cocaine Screen Neg (NEG) Urine Cannabinoids Screen Neg (NEG) Urine Ethyl Alcohol Neg (NEG) Laboratory Tests 03/10/21 20:54 Laboratory Tests 03/10/21 20:54 EKG: EK interpreted by Dr. Cruz sinus rhythm heart rate 56 no STEMI[] Radiology/Procedures: Radiology/Procedures: []PROCEDURE: CT HEAD AND CERVICAL SPINE WO Exam: CT head and cervical spine INDICATION: Syncope, pain, fall TECHNIQUE: Sequential axial images through the head and cervical spine were obtained without the administration of IV contrast. Exposure: One or more of the following in the visualized dose reduction techniques were utilized for this examination: 1. Automated exposure control 2. Adjustment of the MA and/or KV according to patient size 3. Use of iterative of reconstructive technique Comparisons: None FINDINGS: Head: No focal parenchymal lesion or hemorrhage is identified. There is no midline shift or sulcal effacement. Patchy hypodensity in the periventricular white matter. No acute vascular territory infarction is identified. Wilson-white distinction is preserved. The ventricular system is within normal limits without compression hydrocephalus. The basal cisterns are well maintained. The visualized portions of the paranasal sinuses and mastoid air cells are well- pneumatized. No acute fractures. Cervical spine: Vertebral body heights are well-maintained. Grade 1 retrolisthesis of C4 on C5. Fracture to the cervical spine is not identified. No significant spondylotic change in cervical spine. Visualized paraspinal soft tissues are unremarkable. IMPRESSION: 1. No acute intracranial abnormality. 2. Negative CT C-spine for acute traumatic injury. Electronically signed by: Abraham Mera MD (03/10/2021 9:53 PM) ELIJAHFLORY DICTATED and SIGNED BY: ABRAHAM MERA MD DATE: 03/10/[id number] 0 PROCEDURE: PORTABLE CHEST 1V Exam: Chest one view INDICATION: Syncope TECHNIQUE: Frontal view of chest Comparisons: None FINDINGS: The cardiomediastinal silhouette and pulmonary vessels are within normal limits. The lung and pleural spaces are clear. IMPRESSION: No acute cardiopulmonary process. Electronically signed by: Abraham Mera MD (03/10/2021 9:21 PM) ELIJAHFLORY DICTATED and SIGNED BY: ABRAHAM MERA MD DATE: 03/10/[id number] 0 Course & Med Decision Making: Course & Med Decision Making Pertinent Labs and Imaging studies reviewed. (See chart for details) This is a 75-year-old male patient presented to the ED today with generalized weakness, near syncopal event, diarrhea and vomiting. Generalized weakness began yesterday the rest of the symptoms began today. verbalizes inability to physically care for this patient with his current weakness. CT of the head is negative, chest x-ray is negative, CBC with a normal WBC, normal hemoglobin and hematocrit. CMP with creatinine 1.6, BUN is normal, history of chronic kidney disease. Lactic 3.1, denies patient having any seizure event. Patient was given IV fluids in the ED. Negative rapid Covid test. Spoke with Dr. Lovett who accepted patient for admission Dragon Disclaimer: [place] Disclaimer: This electronic medical record was generated, in whole or in part, using a voice recognition dictation system. Departure Departure Impression: Primary Impression: Near syncope Additional Impressions: Hypokalemia Generalized weakness Disposition: ADMITTED INPATIENT Condition: STABLE Referrals: PEDRO VANCE MD (PCP) PEDRO MENDOZA PUBLICATIONS EDITOR Mar 10, 2021 23:02
[2021-03-10] MEDS ORDERED: MORPHINE SULFATE 2 MG/ML INJ. IVP PRN (23:15)
[2021-03-11 07:00] VITALS: BP 175/82
--- NOTE | 2021-03-11 07:31 | PDOC1 ---
History and Physical Date of Admission Date of Admission DATE: 03/11/21 TIME: 07:23 Identification/Chief Complaint Chief Complaint Syncope Source Source: Patient History of Present Illness History of Present Illness Mr Sen is a 75 year old male with history of A. fib, hypertension, dementia, depression, GERD who presents the ED via EMS for passing out at home. His noted he had been lethargic all day on 03/10/2021 and was too weak to get out of bed and had a urinary accident in the bed. Later in the day she go him up tot he restroom and had diarrhea and vomiting and then "blacked out". No seizure activity noted. She called EMS to get him off the toilet and he did not fall, was noted to be bradycardic. He is confused and does not recall any of these events. He denies any complaints except a bit of right anterior thigh pain. No pain on ROM. CT head and cervical spine negative for acute abnormality Chest radiograph negative for acute abnormality. Rapid COVID-19 negative, WBC 5 2, Hb 16.5, platelets 137, NA 141, K3.3, BUN 15, CR 1.6, calcium 8.3, albumin 3.2, lactic acid 3.1, NT proBNP 711, troponin 0, TSH 2.176 Admitted for further care. Past Medical History Cardiovascular: AFIB, HTN CENTRAL NERVOUS SYSTEM: Dementia GI: GERD Past Surgical History Past Surgical History: Appendectomy, Tonsillectomy, Other (ear tumor removed) Family History Family History: Hypertension Social History Smoke: No ALCOHOL: none Drugs: None Current Problem List Problem List Problems Medical Problems: (1) Hypokalemia Status: Acute Current Medications Current Medications Current Medications Sodium Chloride 1,000 ml @ 1,000 mls/hr 1X ONCE IV Last administered on 03/10/21at 21:00; Start 03/10/21 at 21:00; Stop 03/10/21 at 21:59; Status DC Ondansetron HCl (Zofran) 4 mg PRN Q4HRS PRN IVP NAUSEA/VOMITING; Start 03/10/21 at 22:30 Acetaminophen (Tylenol) 650 mg PRN Q6HRS PRN PO MILD PAIN / TEMP > 100.3'F; Start 03/10/21 at 22:30 Ondansetron HCl (Zofran) 4 mg PRN Q8HRS PRN IVP NAUSEA/VOMITING; Start 03/10/21 at 23:15; Stop 03/11/21 at 23:14 Morphine Sulfate (Morphine Sulfate) 2 mg PRN Q2HR PRN IVP PAIN; Start 03/10/21 at 23:15; Stop 03/11/21 at 23:14 Acetaminophen (Tylenol) 650 mg PRN Q4HRS PRN PO FEVER > 100.3'F; Start 03/10/21 at 23:15; Stop 03/11/21 at 23:14 Active Scripts Active Potassium Chloride 20 Meq Tablet.er 20 Meq PO DAILY 7 Days Aricept (Donepezil Hcl) 10 Mg Tablet 10 Mg PO DAILY 30 Days Memantine HCl 10 Mg Tablet 10 Mg PO BID 30 Days Losartan Potassium 50 Mg Tablet 100 Mg PO DAILY 30 Days Amlodipine Besylate 5 Mg Tablet 10 Mg PO DAILY 30 Days Reported Flonase Allergy Relief (Fluticasone Propionate) 9.9 Ml Mathews.susp 2 Sprays NS DAILY Eliquis (Apixaban) 5 Mg Tablet 5 Mg PO BID Vitamin D3 (Cholecalciferol (Vitamin D3)) 1,000 Unit Tablet 2 Tab PO QEVNG Fish Oil 1,000 Mg Capsule ([place]-3 Fatty Acids/Fish Oil) 1 Each Capsule 1 Each PO QEVNG Aspirin 81 Mg Tab.chew 81 Mg PO QEVNG Jessica Allergy (Fexofenadine Hcl) 180 Mg Tablet 180 Mg PO QEVNG Prilosec (Omeprazole) 20 Mg Capsule.dr 20 Mg PO HS Pravachol (Pravastatin Sodium) 40 Mg Tablet 40 Mg PO HS Allergies Allergies: Coded Allergies: Sulfa (Sulfonamide Antibiotics) (Verified Allergy, Intermediate, "SHAKES", 03/06/19) meloxicam (Verified Allergy, Intermediate, "SHAKES", 03/06/19) SIGRID Inhibitors (Verified Adverse Reaction, Mild, COUGH, 02/01/18) ROS General: YES: Fatigue, Malaise; No: Chills, Night Sweats, Appetite, Other PSYCHOLOGICAL ROS: YES: Anxiety, Concentration difficultie, Depression, Disorientation, Memory difficulties, Obsessive thoughts; No: Behavioral Disorder, Decreased libido, Hallucinations, Hostility, Irritablity, Mood Swings, Physical abuse, Sexual abuse, Sleep disturbances, Suicidal ideation, Other Eyes: No Blurry vision, No Decreased vision, No Double vision, No Dry eyes, No Excessive tearing, No Eye Pain, No Itchy Eyes, No Loss of vision, No Photophobia, No Scotomata, No Uses contacts, No Uses glasses, No Other HEENT: No: Heacaches, Visual Changes, Hearing change, Nasal congestion, Nasal discharge, Oral lesions, Sinus pain, Sore Throat, Epistaxis, Sneezing, Snoring, Tinnitus, Vertigo, Vocal changes, Other ALLERGY AND IMMUNOLOGY: No: Hives, Insect Bite Sensitivity, Itchy/Watery Eyes, Nasal Congestion, Post Nasal Drip, Seasonal Allergies, Other Hematological and Lymphatic: No: Bleeding Problems, Blood Clots, Blood Transfusions, Brusing, Night Sweats, Pallor, Swollen Lymph Nodes, Other ENDOCRINE: No: Breast Changes, Galactorrhea, Hair Pattern Changes, Hot Flashes, Malaise/lethargy, Mood Swings, Palpitations, Polydipsia/polyuria, Skin Changes, Temperature Intolerance, Unexpected Weight Changes, Other Breast: No New/Changing Breast Lumps, No Nipple changes, No Nipple discharge, No Other Respiratory: No: Cough, Hemoptysis, Orthopnea, Pleuritic Pain, Shortness of breath, SOB with excertion, Sputum Changes, Stridor, Tachypnea, Wheezing, Other Cardiovascular: No Chest Pain, No Palpitations, No Orthopnea, No Paroxysmal Noc. Dyspnea, No Edema, No Lt Headedness, No Other Gastrointestinal: No Nausea, No Vomiting, No Abdominal Pain, No Diarrhea, No Constipation, No Melena, No Hematochezia, No Other Genitourinary: No Dysuria, No Frequency, No Incontinence, No Hematuria, No Retention, No Discharge, No Urgency, No Pain, No Flank Pain, No Other, No , No , No , No , No , No , No Musculoskeletal: No Gait Disturbance, No Joint Pain, No Joint Stiffness, No Joint Swelling, No Muscle Pain, No Muscular Weakness, No Pain In:, No Swelling In:, No Other Neurological: No Behavorial Changes, No Bowel/Bladder ControlChng, No Confusion, No Dizziness, No Gait Disturbance, No Headaches, No Impaired Coord/balance, No Memory Loss, No Numbness/Tingling, No Seizures, No Speech Problems, No Tremors, No Visual Changes, No Weakness, No Other Skin: No Dry Skin, No Eczema, No Hair Changes, No Lumps, No Mole Changes, No Mottling, No Nail Changes, No Pruritus, No Rash, No Skin Lesion Changes, No Other, No Acne Physical Exam General: Alert, Cooperative, No acute distress HEENT: Atraumatic, PERRLA, EOMI, Mucous membr. moist/pink Lungs: Clear to auscultation, Normal air movement Heart: S1S2, RRR, no thrills, no rubs, no gallops, no murmurs Abdomen: Normal bowel sounds, Soft, No tenderness, No hepatosplenomegaly, No masses Rectal Exam: not examined Extremities: No clubbing, No cyanosis, No edema, Normal pulses, No tenderness/swelling Skin: No rashes, No breakdown, No significant lesion Neuro: Normal gait, Normal speech, Strength at 5/5 X4 ext, Normal tone, Sensation intact, Cranial nerves 3-12 NL, Reflexes 2+ Psych/Mental Status: Other (Confused) Vitals Vitals Vital Signs Date Time Temp Pulse Resp B/P (MAP) Pulse Ox O2 Delivery O2 Flow Rate FiO2 03/11/21 05:26 Room Air Labs Labs Laboratory Tests Test 03/10/21 20:54 03/10/21 21:06 03/11/21 00:45 White Blood Count 5.2 x10^3/uL (4.0-11.0) Red Blood Count 5.07 x10^6/uL (4.30-5.70) Hemoglobin 16.5 g/dL (13.0-17.5) Hematocrit 47.0 % (39.0-53.0) Mean Corpuscular Volume 93 fL (79-100) Mean Corpuscular Hemoglobin 33 pg (25-35) Mean Corpuscular Hemoglobin Concent 35 g/dL (31-37) Red Cell Distribution Width 13.6 % (11.5-14.5) Platelet Count 137 x10^3/uL (140-400) Neutrophils (%) (Auto) 66 % (31-73) Lymphocytes (%) (Auto) 25 % (24-48) Monocytes (%) (Auto) 7 % (0-9) Eosinophils (%) (Auto) 2 % (0-3) Basophils (%) (Auto) 1 % (0-3) Neutrophils # (Auto) 3.4 x10^3/uL (1.8-7.7) Lymphocytes # (Auto) 1.3 x10^3/uL (1.0-4.8) Monocytes # (Auto) 0.3 x10^3/uL (0.0-1.1) Eosinophils # (Auto) 0.1 x10^3/uL (0.0-0.7) Basophils # (Auto) 0.1 x10^3/uL (0.0-0.2) Sodium Level 141 mmol/L (136-145) Potassium Level 3.3 mmol/L (3.5-5.1) Chloride Level 107 mmol/L (98-107) Carbon Dioxide Level 24 mmol/L (21-32) Anion Gap 10 (6-14) Blood Urea Nitrogen 15 mg/dL (8-26) Creatinine 1.6 mg/dL (0.7-1.3) Estimated GFR (Cockcroft-Gault) 42.6 BUN/Creatinine Ratio 9 (6-20) Glucose Level 137 mg/dL (70-99) Lactic Acid Level 3.1 mmol/L (0.4-2.0) 1.2 mmol/L (0.4-2.0) Calcium Level 8.3 mg/dL (8.5-10.1) Magnesium Level 1.9 mg/dL (1.8-2.4) Total Bilirubin 0.8 mg/dL (0.2-1.0) Aspartate Amino Transf (AST/SGOT) 22 U/L (15-37) Alanine Aminotransferase (ALT/SGPT) 17 U/L (16-63) Alkaline Phosphatase 64 U/L (46-116) Troponin I Quantitative < 0.017 ng/mL (0.000-0.055) < 0.017 ng/mL (0.000-0.055) EK-Vcr-J-Type Natriuretic Peptide 711 pg/mL (0-124) Total Protein 6.0 g/dL (6.4-8.2) Albumin 3.2 g/dL (3.4-5.0) Albumin/Globulin Ratio 1.1 (1.0-1.7) Thyroid Stimulating Hormone (TSH) 2.176 uIU/mL (0.358-3.74) SARS-CoV-2 Antigen (Rapid) Negative (NEGATIVE) Urine Collection Type U cath Urine Color Tiffanie Urine Clarity Clear Urine pH 7.5 (<5.0-8.0) Urine Specific [place] 1.020 (1.000-1.030) Urine Protein 30 mg/dL (NEG-TRACE) Urine Glucose (UA) Negative mg/dL (NEG) Urine Ketones (Stick) Trace mg/dL (NEG) Urine Blood Negative (NEG) Urine Nitrite Negative (NEG) Urine Bilirubin Small (NEG) Urine Urobilinogen Dipstick 1.0 mg/dL (0.2 mg/dL) Urine Leukocyte Esterase Trace (NEG) Urine RBC Occ /HPF (0-2) Urine WBC Occ /HPF (0-4) Urine Renal Epithelial Cells Few /LPF Urine Bacteria 0 /HPF (0-FEW) Urine Hyaline Casts Moderate /HPF Urine Mucus Mod /LPF Urine Opiates Screen Neg (NEG) Urine Methadone Screen Neg (NEG) Urine Barbiturates Neg (NEG) Urine Phencyclidine Screen Neg (NEG) Urine Amphetamine/Methamphetamine Neg (NEG) Urine Benzodiazepines Screen Neg (NEG) Urine Cocaine Screen Neg (NEG) Urine Cannabinoids Screen Neg (NEG) Urine Ethyl Alcohol Neg (NEG) Laboratory Tests Test 03/10/21 20:54 03/10/21 21:06 03/11/21 00:45 White Blood Count 5.2 x10^3/uL (4.0-11.0) Red Blood Count 5.07 x10^6/uL (4.30-5.70) Hemoglobin 16.5 g/dL (13.0-17.5) Hematocrit 47.0 % (39.0-53.0) Mean Corpuscular Volume 93 fL (79-100) Mean Corpuscular Hemoglobin 33 pg (25-35) Mean Corpuscular Hemoglobin Concent 35 g/dL (31-37) Red Cell Distribution Width 13.6 % (11.5-14.5) Platelet Count 137 x10^3/uL (140-400) Neutrophils (%) (Auto) 66 % (31-73) Lymphocytes (%) (Auto) 25 % (24-48) Monocytes (%) (Auto) 7 % (0-9) Eosinophils (%) (Auto) 2 % (0-3) Basophils (%) (Auto) 1 % (0-3) Neutrophils # (Auto) 3.4 x10^3/uL (1.8-7.7) Lymphocytes # (Auto) 1.3 x10^3/uL (1.0-4.8) Monocytes # (Auto) 0.3 x10^3/uL (0.0-1.1) Eosinophils # (Auto) 0.1 x10^3/uL (0.0-0.7) Basophils # (Auto) 0.1 x10^3/uL (0.0-0.2) Sodium Level 141 mmol/L (136-145) Potassium Level 3.3 mmol/L (3.5-5.1) Chloride Level 107 mmol/L (98-107) Carbon Dioxide Level 24 mmol/L (21-32) Anion Gap 10 (6-14) Blood Urea Nitrogen 15 mg/dL (8-26) Creatinine 1.6 mg/dL (0.7-1.3) Estimated GFR (Cockcroft-Gault) 42.6 BUN/Creatinine Ratio 9 (6-20) Glucose Level 137 mg/dL (70-99) Lactic Acid Level 3.1 mmol/L (0.4-2.0) 1.2 mmol/L (0.4-2.0) Calcium Level 8.3 mg/dL (8.5-10.1) Magnesium Level 1.9 mg/dL (1.8-2.4) Total Bilirubin 0.8 mg/dL (0.2-1.0) Aspartate Amino Transf (AST/SGOT) 22 U/L (15-37) Alanine Aminotransferase (ALT/SGPT) 17 U/L (16-63) Alkaline Phosphatase 64 U/L (46-116) Troponin I Quantitative < 0.017 ng/mL (0.000-0.055) < 0.017 ng/mL (0.000-0.055) QE-Nnf-B-Type Natriuretic Peptide 711 pg/mL (0-124) Total Protein 6.0 g/dL (6.4-8.2) Albumin 3.2 g/dL (3.4-5.0) Albumin/Globulin Ratio 1.1 (1.0-1.7) Thyroid Stimulating Hormone (TSH) 2.176 uIU/mL (0.358-3.74) SARS-CoV-2 Antigen (Rapid) Negative (NEGATIVE) Urine Collection Type U cath Urine Color Tiffanie Urine Clarity Clear Urine pH 7.5 (<5.0-8.0) Urine Specific [place] 1.020 (1.000-1.030) Urine Protein 30 mg/dL (NEG-TRACE) Urine Glucose (UA) Negative mg/dL (NEG) Urine Ketones (Stick) Trace mg/dL (NEG) Urine Blood Negative (NEG) Urine Nitrite Negative (NEG) Urine Bilirubin Small (NEG) Urine Urobilinogen Dipstick 1.0 mg/dL (0.2 mg/dL) Urine Leukocyte Esterase Trace (NEG) Urine RBC Occ /HPF (0-2) Urine WBC Occ /HPF (0-4) Urine Renal Epithelial Cells Few /LPF Urine Bacteria 0 /HPF (0-FEW) Urine Hyaline Casts Moderate /HPF Urine Mucus Mod /LPF Urine Opiates Screen Neg (NEG) Urine Methadone Screen Neg (NEG) Urine Barbiturates Neg (NEG) Urine Phencyclidine Screen Neg (NEG) Urine Amphetamine/Methamphetamine Neg (NEG) Urine Benzodiazepines Screen Neg (NEG) Urine Cocaine Screen Neg (NEG) Urine Cannabinoids Screen Neg (NEG) Urine Ethyl Alcohol Neg (NEG) Images Images Chest radiograph: The cardiomediastinal silhouette and pulmonary vessels are within normal limits. The lung and pleural spaces are clear. IMPRESSION: No acute cardiopulmonary process. CT head and neck: Head: No focal parenchymal lesion or hemorrhage is identified. There is no midline shift or sulcal effacement. Patchy hypodensity in the periventricular white matter. No acute vascular territory infarction is identified. Wilson-white distinction is preserved. The ventricular system is within normal limits without compression hydrocephalus. The basal cisterns are well maintained. The visualized portions of the paranasal sinuses and mastoid air cells are well- pneumatized. No acute fractures. Cervical spine: Vertebral body heights are well-maintained. Grade 1 retrolisthesis of C4 on C5. Fracture to the cervical spine is not identified. No significant spondylotic change in cervical spine. Visualized paraspinal soft tissues are unremarkable. IMPRESSION: 1. No acute intracranial abnormality. 2. Negative CT C-spine for acute traumatic injury. VTE Prophylaxis Ordered VTE Prophylaxis Devices: No VTE Pharmacological Prophylaxi: Yes Assessment/Plan Assessment/Plan A/P: Acute encephalopathy - likely due to presyncopal event. Syncope/Presyncope - passed out on toilet. Likely vasovagal, but would like evaluation for bradycardia given afib history not on BB. Stop aricept indefinitely Dementia - alzheimer type on namenda and aricept Paroxysmal AFIB - on amiodarone, no BB therapy. Currently bradycardic. Cardiology consulted HTN - controlled, will hold losartan/hctz with ELISABETH. Ok for almodipine HLD - cont crestor ELISABETH - vasomotor nephropathy. Possible CKD I Weakness - OT/PT FEN - Cardiac diet PPX - heparin FULL CODE Dispo - inpatient Justifications for Admission Other Justification ABI JAIN MD Mar 11, 2021 07:31
[2021-03-11 11:00] VITALS: BP 157/78
[2021-03-11] MEDS ORDERED: LOSA1TAB19 PO (11:10)
[2021-03-11] MEDS ORDERED: AMLO-186 PO (11:10)
[2021-03-11] MEDS ORDERED: AMIO200T6 PO (11:10)
[2021-03-11] MEDS ORDERED: MAGN500C10 PO (11:10)
[2021-03-11] MEDS ORDERED: CRESTOR5 MG PO (11:10)
[2021-03-11] MEDS ORDERED: ESCITALOPRAM OX20 MG PO (11:10)
--- NOTE | 2021-03-11 11:51 | NUR ---
SW following. Discussed with RN, pt from home with and grandson, room air, cardiac diet, rapid COVID-19 negative. PT/OT ordered. RN advised no SW needs at this time. SW will continue to follow.
[2021-03-11 11:54] LABS: CALCIUM 8.3 mg/dL (8.5-10.1); CREATININE 1.2 mg/dL (0.7-1.3); GFR 59.3; POTASSIUM 3.4 mmol/L (3.5-5.1)
--- NOTE | 2021-03-11 12:04 | PDOC2 ---
CARDIAC CONSULT DATE OF CONSULT Date of Consult DATE: 03/11/21 TIME: 11:34 REASON FOR CONSULT Reason for Consult: Bradycardia, hx of AFIB, syncope REFERRING PHYSICIAN Referring Physician: Bony SOURCE Source: Chart review, Patient HISTORY OF PRESENT ILLNESS HISTORY OF PRESENT ILLNESS This is a 75 yo male admitted for complains of weakness and possble near syncopal event. He is a poor historian. Per chart review his tried to help him got to the bathroom bu was so weak but was able to reach the toilet and had diarrhea and some vomiting. After which he could not get off the toilet. He was then noted to be pale and almost passed out accdg to spouse. No associated falls. Presently he is pleasantly confused and denies any discomfort. PAST MEDICAL HISTORY Cardiovascular: AFIB, HTN, Hyperlipidemia CENTRAL NERVOUS SYSTEM: Dementia GI: GERD Hepatobiliary: Cholelithiasis Psych: Depression Musculoskeletal: Osteoarthritis Renal/: Benign prostatic enlarg., Other (nephrolithiasis) PAST SURGICAL HISTORY Past Surgical History: Appendectomy, Tonsillectomy, Other (TURP; varicose vein surgery; cystoscopy) FAMILY HISTORY Family History: Hypertension SOCIAL HISTORY Smoke: No ALCOHOL: none Drugs: None Lives: with Family CURRENT MEDICATIONS CURRENT MEDICATIONS Current Medications Medications (Trade) Dose Ordered Sig/Luis Armando Route PRN Reason Start Time Stop Time Status Last Admin Dose Admin Sodium Chloride 1,000 ml @ 1,000 mls/hr 1X ONCE IV 03/10/21 21:00 03/10/21 21:59 DC 03/10/21 21:00 ALLERGIES ALLERGIES: Coded Allergies: Sulfa (Sulfonamide Antibiotics) (Verified Allergy, Intermediate, "SHAKES", 03/06/19) meloxicam (Verified Allergy, Intermediate, "SHAKES", 03/06/19) SIGRID Inhibitors (Verified Adverse Reaction, Mild, COUGH, 02/01/18) ROS Review of System limited, poor historian PHYSICAL EXAM General: Alert, Cooperative, No acute distress HEENT: Atraumatic, Mucous membr. moist/pink Lungs: Clear to auscultation, Normal air movement Heart: Regular rate (SR/SB), Normal S1, Normal S2, No murmurs Abdomen: Soft, No tenderness Extremities: No cyanosis, No edema Skin: No breakdown, No significant lesion Neuro: Normal speech, Sensation intact Psych/Mental Status: Mood NL, Other (confused) MUSCULOSKELETAL: Osteoarthritic changes both hands VITALS/I&O VITALS/I&O: Vital Signs Date Time Temp Pulse Resp B/P (MAP) Pulse Ox O2 Delivery O2 Flow Rate FiO2 03/11/21 07:56 48 18 95 Room Air 03/11/21 07:00 97.8 175/82 (113) 97.8 I & O 03/10/21 03/10/21 03/11/21 15:00 23:00 07:00 Intake Total 1000 ml Balance 1000 ml LABS Lab: Laboratory Tests Test 03/10/21 20:54 03/10/21 21:06 03/11/21 00:45 White Blood Count 5.2 x10^3/uL (4.0-11.0) Red Blood Count 5.07 x10^6/uL (4.30-5.70) Hemoglobin 16.5 g/dL (13.0-17.5) Hematocrit 47.0 % (39.0-53.0) Mean Corpuscular Volume 93 fL (79-100) Mean Corpuscular Hemoglobin 33 pg (25-35) Mean Corpuscular Hemoglobin Concent 35 g/dL (31-37) Red Cell Distribution Width 13.6 % (11.5-14.5) Platelet Count 137 x10^3/uL (140-400) L Neutrophils (%) (Auto) 66 % (31-73) Lymphocytes (%) (Auto) 25 % (24-48) Monocytes (%) (Auto) 7 % (0-9) Eosinophils (%) (Auto) 2 % (0-3) Basophils (%) (Auto) 1 % (0-3) Neutrophils # (Auto) 3.4 x10^3/uL (1.8-7.7) Lymphocytes # (Auto) 1.3 x10^3/uL (1.0-4.8) Monocytes # (Auto) 0.3 x10^3/uL (0.0-1.1) Eosinophils # (Auto) 0.1 x10^3/uL (0.0-0.7) Basophils # (Auto) 0.1 x10^3/uL (0.0-0.2) Sodium Level 141 mmol/L (136-145) Potassium Level 3.3 mmol/L (3.5-5.1) L Chloride Level 107 mmol/L (98-107) Carbon Dioxide Level 24 mmol/L (21-32) Anion Gap 10 (6-14) Blood Urea Nitrogen 15 mg/dL (8-26) Creatinine 1.6 mg/dL (0.7-1.3) H Estimated GFR (Cockcroft-Gault) 42.6 BUN/Creatinine Ratio 9 (6-20) Glucose Level 137 mg/dL (70-99) H Lactic Acid Level 3.1 mmol/L (0.4-2.0) H 1.2 mmol/L (0.4-2.0) Calcium Level 8.3 mg/dL (8.5-10.1) L Magnesium Level 1.9 mg/dL (1.8-2.4) Total Bilirubin 0.8 mg/dL (0.2-1.0) Aspartate Amino Transferase (AST) 22 U/L (15-37) Alanine Aminotransferase (ALT) 17 U/L (16-63) Alkaline Phosphatase 64 U/L (46-116) Troponin I Quantitative < 0.017 ng/mL (0.000-0.055) < 0.017 ng/mL (0.000-0.055) UG-Uab-B-Type Natriuretic Peptide 711 pg/mL (0-124) H Total Protein 6.0 g/dL (6.4-8.2) L Albumin 3.2 g/dL (3.4-5.0) L Albumin/Globulin Ratio 1.1 (1.0-1.7) Thyroid Stimulating Hormone (TSH) 2.176 uIU/mL (0.358-3.74) SARS-CoV-2 Antigen (Rapid) Negative (NEGATIVE) Urine Collection Type U cath Urine Color Tiffanie Urine Clarity Clear Urine pH 7.5 (<5.0-8.0) Urine Specific [place] 1.020 (1.000-1.030) Urine Protein 30 mg/dL (NEG-TRACE) Urine Glucose (UA) Negative mg/dL (NEG) Urine Ketones (Stick) Trace mg/dL (NEG) Urine Blood Negative (NEG) Urine Nitrite Negative (NEG) Urine Bilirubin Small (NEG) Urine Urobilinogen Dipstick 1.0 mg/dL (0.2 mg/dL) Urine Leukocyte Esterase Trace (NEG) Urine RBC Occ /HPF (0-2) Urine WBC Occ /HPF (0-4) Urine Renal Epithelial Cells Few /LPF Urine Bacteria 0 /HPF (0-FEW) Urine Hyaline Casts Moderate /HPF Urine Mucus Mod /LPF Urine Opiates Screen Neg (NEG) Urine Methadone Screen Neg (NEG) Urine Barbiturates Neg (NEG) Urine Phencyclidine Screen Neg (NEG) Urine Amphetamine/Methamphetamine Neg (NEG) Urine Benzodiazepines Screen Neg (NEG) Urine Cocaine Screen Neg (NEG) Urine Cannabinoids Screen Neg (NEG) Urine Ethyl Alcohol Neg (NEG) Laboratory Tests 03/10/21 20:54 Laboratory Tests 03/10/21 20:54 ECHOCARDIOGRAM ECHOCARDIOGRAM <Conclusion> Left ventricle systolic function is normal. The Ejection Fraction is 55%. There is grossly normal LV segmental wall motion. Mild to moderate aortic regurgitation. Trace to mild tricuspid regurgitation. The PA pressure was estimated at 25mmHg DATE: 06/23/20 [id number] STRESS TEST STRESS TEST Conclusion 1. Regadenoson cardioisotope stress test did not show any evidence of ischemia or infarct. 2. Normal left ventricular systolic function with ejection fraction calculated at 70%. 3. Low risk for cardiac events. DATE: 06/30/20 [id number] ASSESSMENT/PLAN ASSESSMENT/PLAN 1. Presyncope: suspect vasovagal with associated vomiting/diarrhea episode 2. Weakness 3. Dementia 4. PAFIB: presently with SB lowest at 40s with long first degree AV block. Presently 50s no pauses 5. HTN: controlled 6. HLP: on crestor 7. suspect CKD 3 with hypokalemia Recommendations 1. DC aricept. Hold amiodarone for now. No AV jeronimo blocking agents.Monitor rhythm overnight 2. ASA. Hold eliquis. Will need MCOT or possibly ILR to further differentiate any tachy yumiko issues 3. BMP replace K as warranted 4. Restart home norvasc. Hydralazine IV PRN 5. OT/PT JADA MARIE APRN Mar 11, 2021 12:04
[2021-03-11] MEDS ORDERED: hydrALAZINE 20 MG/ML VIAL. IVP PRN (12:15)
[2021-03-11] MEDS ORDERED: POTASSIUM BICARB 20 MEQ EFFERVESCENT TABLET. PO ONE (12:30)
--- NOTE | 2021-03-11 12:30 | EKG ---
[facility] [address] [place] [address] Test Date: 2021-03-11 Test Time: 12:21:13 Pat Name: MONCHO DEVINE Department: Room: 534 1 Gender: M Collar Baster: RAVEN : 1945 Requested By: JADA MARIE Order Number: [id number] Reading MD: Measurements Intervals [place] Rate: 52 P: 51 IN: 306 QRS: -34 QRSD: 114 T: 21 QT: 518 QTc: 484 Interpretive Statements SINUS RHYTHM PROLONGED IN INTERVAL ABNORMAL LEFT AXIS DEVIATION R-S TRANSITION ZONE IN V LEADS DISPLACED TO THE RIGHT QRS(T) CONTOUR ABNORMALITY CONSISTENT WITH INFERIOR INFARCT PROBABLY OLD ABNORMAL ECG RI6.02 Compared to ECG 03/10/2021 20:49:30 Left-axis deviation now present Right superior axis no longer present Myocardial infarct finding still present
[2021-03-11 13:05] LABS: CALCIUM 8.3 mg/dL (8.5-10.1); CREATININE 1.3 mg/dL (0.7-1.3); GFR 54.1; POTASSIUM 3.5 mmol/L (3.5-5.1)
[2021-03-11] MEDS ORDERED: cefTRIAXone IV Push 1 GM VIAL. IVP SCH (14:00)
[2021-03-11 15:53] VITALS: BP 129/74
[2021-03-11] MEDS: CHOLECALCIFEROL (VITAMIN D3) 1,000 UNIT TABLET PO SCH (16:53)
[2021-03-11] MEDS: ASPIRIN CHEWABLE 81 MG TABLET. PO SCH (16:53)
[2021-03-11] MEDS: OMEGA-3 FATTY ACIDS/FISH OIL 1,000 MG CAPSULE. PO SCH (16:53)
[2021-03-11] MEDS: CETIRIZINE HCL 10 MG TABLET. PO SCH (16:53)
[2021-03-11] MEDS: FLUTICASONE 50MCG/NASAL SPRAY 16GM BOTTLE. NS SCH (16:55)
[2021-03-11 19:54] VITALS: BP 133/76
[2021-03-11] MEDS: MAGNESIUM OXIDE 400 MG TABLET PO SCH (21:07)
[2021-03-11] MEDS: LACTOBACILLUS RHAMNOSUS GG 1 CAPSULE. PO SCH (21:07)
[2021-03-11] MEDS: MEMANTINE 10 MG TABLET. PO SCH (21:07)
[2021-03-11] MEDS: ATORVASTATIN CALCIUM 20 MG TABLET PO SCH (21:07)
[2021-03-11 23:07] VITALS: BP 141/77
[2021-03-12 03:28] VITALS: BP 173/82
[2021-03-12 07:00] VITALS: BP 155/77
--- NOTE | 2021-03-12 09:32 | PDOC ---
[facility] PROGRESS NOTE Date of Service DOS: DATE: 03/12/21 TIME: 09:31 Chief Complaint Chief Complaint A/P: Acute encephalopathy - likely due to presyncopal event. Syncope/Presyncope - passed out on toilet. Likely vasovagal, but would like evaluation for bradycardia given afib history not on BB. Stop aricept indefinitely Dementia - alzheimer type on namenda and aricept Paroxysmal AFIB - on amiodarone, no BB therapy. Currently bradycardic. Cardiology consulted HTN - controlled, will hold losartan/hctz with ELISABETH. Ok for almodipine HLD - cont crestor ELISABETH - vasomotor nephropathy. Possible CKD I Weakness - OT/PT Blood culture positive - GPC appear to be staph hemolyticus and staph ep idermidis almost certainly contaminant given no signs of sepsis. UA and urine culture with no growth. FEN - Cardiac diet PPX - heparin FULL CODE Dispo - inpatient History of Present Illness History of Present Illness Mr Sen is a 75 year old male with history of A. fib, hypertension, dementia, depression, GERD who presents the ED via EMS for passing out at home. His noted he had been lethargic all day on 03/10/2021 and was too weak to get out of bed and had a urinary accident in the bed. Later in the day she go him up tot he restroom and had diarrhea and vomiting and then "blacked out". No seizure activity noted. She called EMS to get him off the toilet and he did not fall, was noted to be bradycardic. He is confused and does not recall any of these events. He denies any complaints except a bit of right anterior thigh pain. No pain on ROM. CT head and cervical spine negative for acute abnormality Chest radiograph negative for acute abnormality. Rapid COVID-19 negative, WBC 5 2, Hb 16.5, platelets 137, NA 141, K3.3, BUN 15, CR 1.6, calcium 8.3, albumin 3.2, lactic acid 3.1, NT proBNP 711, troponin 0, TSH 2.176 Admitted for further care. Started on empiric rocephin for blood cultures positive for GPC, admitted to telemetry with cardiology consultation for bradycardia No overnight events. Still very confused but is oriented to the hospital and easily redirected. Still with bradycardia in the forties. Unsteady on his feet. Blood culture of GPC appear to be staph hemolyticus and staph epidermidis almost certainly contaminant given no signs of sepsis. UA and urine culture with no growth. Vitals/I&O Vitals/I&O: Vital Signs Date Time Temp Pulse Resp B/P (MAP) Pulse Ox O2 Delivery O2 Flow Rate FiO2 03/12/21 07:00 96.7 49 18 155/77 (103) 97 Room Air 96.7 I & O 03/11/21 03/11/21 03/12/21 15:00 23:00 07:00 Intake Total 0 ml Output Total 350 ml Balance -350 ml Physical Exam General: Alert, Cooperative, No acute distress Heart: Regular rate (SR/SB), Normal S1, Normal S2, No murmurs Abdomen: Normal bowel sounds, Soft, No tenderness, No hepatosplenomegaly, No masses Extremities: No clubbing, No cyanosis, No edema, Normal pulses, No tenderness/swelling Skin: No rashes, No breakdown, No significant lesion Labs Labs: Laboratory Tests Test 03/11/21 11:29 03/11/21 12:20 Sodium Level 142 mmol/L (136-145) 140 mmol/L (136-145) Potassium Level 3.4 mmol/L (3.5-5.1) 3.5 mmol/L (3.5-5.1) Chloride Level 108 mmol/L (98-107) 105 mmol/L (98-107) Carbon Dioxide Level 26 mmol/L (21-32) 30 mmol/L (21-32) Anion Gap 8 (6-14) 5 (6-14) Blood Urea Nitrogen 16 mg/dL (8-26) 15 mg/dL (8-26) Creatinine 1.2 mg/dL (0.7-1.3) 1.3 mg/dL (0.7-1.3) Estimated GFR (Cockcroft-Gault) 59.3 54.1 Glucose Level 103 mg/dL (70-99) 90 mg/dL (70-99) Calcium Level 8.3 mg/dL (8.5-10.1) 8.3 mg/dL (8.5-10.1) Troponin I Quantitative < 0.017 ng/mL (0.000-0.055) Assessment and Plan Assessmemt and Plan Problems Medical Problems: (1) Hypokalemia Status: Acute Comment Review of Relevant I have reviewed the following items felisha (where applicable) has been applied. Medications: Current Medications Medications (Trade) Dose Ordered Sig/Luis Armando Route PRN Reason Start Time Stop Time Status Last Admin Dose Admin Amlodipine Besylate (Norvasc) 10 mg DAILY PO 03/11/21 13:00 03/11/21 13:14 Aspirin (Aspirin Chewable) 81 mg QEVNG PO 03/11/21 18:00 03/11/21 16:53 Potassium Bicarbonate (Potassium Effervescent Tablet) 40 meq 1X ONCE PO 03/11/21 12:30 03/11/21 12:31 DC 03/11/21 13:14 Ceftriaxone Sodium (Rocephin) 1 gm Q24H IVP 03/11/21 14:00 03/11/21 14:28 Vitamin D (Vitamin D3) 2,000 unit QEVNG PO 03/11/21 18:00 03/11/21 16:53 Memantine (Namenda) 10 mg BID PO 03/11/21 21:00 03/11/21 21:07 Fish Oil (Fish Oil) 1,000 mg QEVNG PO 03/11/21 18:00 03/11/21 16:53 Cetirizine HCl (ZyrTEC) 10 mg QEVNG PO 03/11/21 18:00 03/11/21 16:53 Magnesium Oxide (Magnesium Oxide) 400 mg BID PO 03/11/21 21:00 03/11/21 21:07 Atorvastatin Calcium (Lipitor) 20 mg QHS PO 03/11/21 21:00 03/11/21 21:07 Lactobacillus Rhamnosus (Culturelle) 1 cap BID PO 03/11/21 21:00 03/11/21 21:07 Justifications for Admission Other Justification BAI JAIN MD Mar 12, 2021 09:32
[2021-03-12] MEDS: MEMANTINE 10 MG TABLET. PO SCH ×2 (10:10→21:27)
[2021-03-12] MEDS: CITALOPRAM 20 MG TABLET. PO SCH (10:10)
[2021-03-12] MEDS: MAGNESIUM OXIDE 400 MG TABLET PO SCH ×2 (10:10→21:27)
[2021-03-12] MEDS: LACTOBACILLUS RHAMNOSUS GG 1 CAPSULE. PO SCH ×2 (10:10→21:27)
[2021-03-12] MEDS: FLUTICASONE 50MCG/NASAL SPRAY 16GM BOTTLE. NS SCH (10:10)
[2021-03-12 11:00] VITALS: BP 159/84
--- NOTE | 2021-03-12 13:54 | PDOC ---
CARDIOLOGY PROGRESS NOTE SUBJECTIVE: No new issues overnight. OBJECTIVE: Vital Signs/I&O: Vital Signs Date Time Temp Pulse Resp B/P (MAP) Pulse Ox O2 Delivery O2 Flow Rate FiO2 03/12/21 11:00 96.6 48 18 159/84 (109) 95 Room Air 96.6 I & O 03/11/21 03/11/21 03/12/21 15:00 23:00 07:00 Intake Total 0 ml Output Total 350 ml Balance -350 ml Objective: GEN.: No apparent distress. HEENT: Head is normocephalic, atraumatic NECK: Supple. LUNGS: Clear to auscultation. HEART: RRR, S1, S2 present. Peripheral pulses intact ABDOMEN: Soft, nontender. Positive bowel sounds. EXTREMITIES: Without any cyanosis. NEUROLOGIC: No focal deficits. PSYCHIATRIC: Normal affect, normal mood. SKIN: No ulcerations CURRENT MEDICATIONS: Current Medications Medications (Trade) Dose Ordered Sig/Luis Armando Route PRN Reason Start Time Stop Time Status Last Admin Dose Admin Aspirin (Aspirin Chewable) 81 mg QEVNG PO 03/11/21 18:00 03/11/21 16:53 Ceftriaxone Sodium (Rocephin) 1 gm Q24H IVP 03/11/21 14:00 03/12/21 13:21 DC 03/11/21 14:28 Vitamin D (Vitamin D3) 2,000 unit QEVNG PO 03/11/21 18:00 03/11/21 16:53 Memantine (Namenda) 10 mg BID PO 03/11/21 21:00 03/12/21 10:10 Fish Oil (Fish Oil) 1,000 mg QEVNG PO 03/11/21 18:00 03/11/21 16:53 Citalopram Hydrobromide (CeleXA) 20 mg DAILY PO 03/12/21 09:00 03/12/21 10:10 Cetirizine HCl (ZyrTEC) 10 mg QEVNG PO 03/11/21 18:00 03/11/21 16:53 Magnesium Oxide (Magnesium Oxide) 400 mg BID PO 03/11/21 21:00 03/12/21 10:10 Atorvastatin Calcium (Lipitor) 20 mg QHS PO 03/11/21 21:00 03/11/21 21:07 Lactobacillus Rhamnosus (Culturelle) 1 cap BID PO 03/11/21 21:00 03/12/21 10:10 DIAGNOSTIC TESTING: No new issues. ASSESSMENT: 1. Presyncope: suspect vasovagal with associated vomiting/diarrhea episode 2. Weakness 3. Dementia 4. PAFIB: presently with SB lowest at 40s with long first degree AV block. Presently 50s no pauses 5. HTN: controlled 6. HLP: on crestor 7. suspect CKD 3 with hypokalemia PLAN: 1. For now, continue to hold aricept. Outpt monitor. Based on results, consider pacemaker. Supportive care. Justicifation of Admission Dx: Justifications for Admission: Justification of Admission Dx: N/A DASHAWN ACKERMAN MD Mar 12, 2021 13:54
[2021-03-12 15:00] VITALS: BP 154/83
[2021-03-12] MEDS: CHOLECALCIFEROL (VITAMIN D3) 1,000 UNIT TABLET PO SCH (18:04)
[2021-03-12] MEDS: OMEGA-3 FATTY ACIDS/FISH OIL 1,000 MG CAPSULE. PO SCH (18:04)
[2021-03-12] MEDS: ASPIRIN CHEWABLE 81 MG TABLET. PO SCH (18:04)
[2021-03-12] MEDS: CETIRIZINE HCL 10 MG TABLET. PO SCH (18:04)
[2021-03-12 19:00] VITALS: BP 163/64
[2021-03-12] MEDS: ATORVASTATIN CALCIUM 20 MG TABLET PO SCH (21:27)
[2021-03-12 23:00] VITALS: BP 149/77
[2021-03-13 03:00] VITALS: BP 159/80
[2021-03-13 07:30] VITALS: BP 149/80
[2021-03-13 07:54] LABS: CALCIUM 8.2 mg/dL (8.5-10.1); CREATININE 1.4 mg/dL (0.7-1.3); GFR 49.7; POTASSIUM 3.8 mmol/L (3.5-5.1)
[2021-03-13] MEDS: LACTOBACILLUS RHAMNOSUS GG 1 CAPSULE. PO SCH ×2 (09:25→21:00)
[2021-03-13] MEDS: MAGNESIUM OXIDE 400 MG TABLET PO SCH ×2 (09:25→21:00)
[2021-03-13] MEDS: FLUTICASONE 50MCG/NASAL SPRAY 16GM BOTTLE. NS SCH (09:26)
[2021-03-13] MEDS: MEMANTINE 10 MG TABLET. PO SCH ×2 (09:26→21:00)
[2021-03-13] MEDS: CITALOPRAM 20 MG TABLET. PO SCH (09:26)
[2021-03-13 11:30] VITALS: BP 123/67
--- NOTE | 2021-03-13 11:37 | PDOC ---
[facility] PROGRESS NOTE Date of Service DOS: DATE: 03/13/21 TIME: 11:35 Chief Complaint Chief Complaint A/P: Acute encephalopathy - likely due to presyncopal event. Syncope/Presyncope - passed out on toilet. Likely vasovagal, but would like evaluation for bradycardia given afib history not on BB. Stop aricept indefinitely Dementia - alzheimer type on namenda and aricept Paroxysmal AFIB - on amiodarone, no BB therapy. Currently bradycardic. Cardiology consulted HTN - controlled, will hold losartan/hctz with ELISABETH. Ok for almodipine HLD - cont crestor ELISABETH - vasomotor nephropathy. Possible CKD I Weakness - OT/PT Blood culture positive - GPC appear to be staph hemolyticus and staph ep idermidis almost certainly contaminant given no signs of sepsis. UA and urine culture with no growth. FEN - Cardiac diet PPX - heparin FULL CODE Dispo - inpatient History of Present Illness History of Present Illness Mr Sen is a 75 year old male with history of A. fib, hypertension, dementia, depression, GERD who presents the ED via EMS for passing out at home. His noted he had been lethargic all day on 03/10/2021 and was too weak to get out of bed and had a urinary accident in the bed. Later in the day she go him up tot he restroom and had diarrhea and vomiting and then "blacked out". No seizure activity noted. She called EMS to get him off the toilet and he did not fall, was noted to be bradycardic. He is confused and does not recall any of these events. He denies any complaints except a bit of right anterior thigh pain. No pain on ROM. CT head and cervical spine negative for acute abnormality Chest radiograph negative for acute abnormality. Rapid COVID-19 negative, WBC 5 2, Hb 16.5, platelets 137, NA 141, K3.3, BUN 15, CR 1.6, calcium 8.3, albumin 3.2, lactic acid 3.1, NT proBNP 711, troponin 0, TSH 2.176 Admitted for further care. Started on empiric rocephin for blood cultures positive for GPC, admitted to telemetry with cardiology consultation for bradycardia 03/12: No overnight events. Still very confused but is oriented to the hospital and easily redirected. Still with bradycardia in the forties. Unsteady on his feet. Blood culture of GPC appear to be staph hemolyticus and staph epidermidis almost certainly contaminant. UA and urine culture NGTD. 03/13: No overnight events. Still confused easily redirected. Unsteady in physical occupational therapy recommends SNF for gait training and rehab heart rate monitoring. Vitals/I&O Vitals/I&O: Vital Signs Date Time Temp Pulse Resp B/P (MAP) Pulse Ox O2 Delivery O2 Flow Rate FiO2 03/13/21 09:26 51 149/80 03/13/21 08:00 Room Air 03/13/21 07:30 98.2 18 96 98.2 I & O 03/12/21 03/12/21 03/13/21 15:00 23:00 07:00 Intake Total 340 ml 50 ml 120 ml Balance 340 ml 50 ml 120 ml Physical Exam General: Alert, Cooperative, No acute distress Heart: Regular rate (SR/SB), Normal S1, Normal S2, No murmurs Abdomen: Normal bowel sounds, Soft, No tenderness, No hepatosplenomegaly, No masses Extremities: No clubbing, No cyanosis, No edema, Normal pulses, No tenderness/swelling Skin: No rashes, No breakdown, No significant lesion Labs Labs: Laboratory Tests Test 03/13/21 06:35 Sodium Level 138 mmol/L (136-145) Potassium Level 3.8 mmol/L (3.5-5.1) Chloride Level 104 mmol/L (98-107) Carbon Dioxide Level 29 mmol/L (21-32) Anion Gap 5 (6-14) Blood Urea Nitrogen 16 mg/dL (8-26) Creatinine 1.4 mg/dL (0.7-1.3) Estimated GFR (Cockcroft-Gault) 49.7 Glucose Level 84 mg/dL (70-99) Calcium Level 8.2 mg/dL (8.5-10.1) Assessment and Plan Assessmemt and Plan Problems Medical Problems: (1) Hypokalemia Status: Acute Comment Review of Relevant I have reviewed the following items felisha (where applicable) has been applied. Justifications for Admission Other Justification ABI JAIN MD Mar 13, 2021 11:37
[2021-03-13 15:00] VITALS: BP 133/75
[2021-03-13] MEDS: OMEGA-3 FATTY ACIDS/FISH OIL 1,000 MG CAPSULE. PO SCH (18:31)
[2021-03-13] MEDS: CHOLECALCIFEROL (VITAMIN D3) 1,000 UNIT TABLET PO SCH (18:31)
[2021-03-13] MEDS: ASPIRIN CHEWABLE 81 MG TABLET. PO SCH (18:31)
[2021-03-13] MEDS: CETIRIZINE HCL 10 MG TABLET. PO SCH (18:31)
[2021-03-13 19:00] VITALS: BP 124/70
[2021-03-13] MEDS: ATORVASTATIN CALCIUM 20 MG TABLET PO SCH (21:00)
[2021-03-14] MEDS ORDERED: IV NORMAL SALINE 1000ML BAG 1,000 ML IV ONE (06:45)
[2021-03-14 07:00] VITALS: BP 144/69
[2021-03-14 08:53] LABS: CALCIUM 8.4 mg/dL (8.5-10.1); CREATININE 1.2 mg/dL (0.7-1.3); GFR 59.3; POTASSIUM 3.9 mmol/L (3.5-5.1)
[2021-03-14] MEDS: MAGNESIUM OXIDE 400 MG TABLET PO SCH ×2 (09:15→20:54)
[2021-03-14] MEDS: LACTOBACILLUS RHAMNOSUS GG 1 CAPSULE. PO SCH ×2 (09:15→20:54)
[2021-03-14] MEDS: CITALOPRAM 20 MG TABLET. PO SCH (09:15)
[2021-03-14] MEDS: MEMANTINE 10 MG TABLET. PO SCH ×2 (09:15→20:54)
[2021-03-14] MEDS: FLUTICASONE 50MCG/NASAL SPRAY 16GM BOTTLE. NS SCH (09:16)
[2021-03-14 11:00] VITALS: BP 128/71
--- NOTE | 2021-03-14 12:55 | PDOC ---
[facility] PROGRESS NOTE Date of Service DOS: DATE: 03/14/21 TIME: 12:49 Chief Complaint Chief Complaint CC: Acute encephalopathy Syncope/Presyncope Dementia Paroxysmal AFIB HTN HLD ELISABETH Weakness History of Present Illness History of Present Illness Mr Sen is a 75 year old male with history of A. fib, hypertension, dementia, depression, GERD who presents the ED via EMS for passing out at home. His noted he had been lethargic all day on 03/10/2021 and was too weak to get out of bed and had a urinary accident in the bed. Later in the day she go him up tot he restroom and had diarrhea and vomiting and then "blacked out". No seizure activity noted. She called EMS to get him off the toilet and he did not fall, was noted to be bradycardic. He is confused and does not recall any of these events. He denies any complaints except a bit of right anterior thigh pain. No pain on ROM. CT head and cervical spine negative for acute abnormality Chest radiograph negative for acute abnormality. Rapid COVID-19 negative, WBC 5 2, Hb 16.5, platelets 137, NA 141, K3.3, BUN 15, CR 1.6, calcium 8.3, albumin 3.2, lactic acid 3.1, NT proBNP 711, troponin 0, TSH 2.176 Admitted for further care. Started on empiric rocephin for blood cultures positive for GPC, admitted to telemetry with cardiology consultation for bradycardia 03/12: No overnight events. Still very confused but is oriented to the hospital and easily redirected. Still with bradycardia in the forties. Unsteady on his feet. Blood culture of GPC appear to be staph hemolyticus and staph epidermidis almost certainly contaminant. UA and urine culture NGTD. 03/13: No overnight events. Still confused easily redirected. Unsteady in physical occupational therapy recommends SNF for gait training and rehab heart rate monitoring. 03/14: Patient seen and examined. Discussed with RN. Chart reviewed. Vitals/I&O Vitals/I&O: Vital Signs Date Time Temp Pulse Resp B/P (MAP) Pulse Ox O2 Delivery O2 Flow Rate FiO2 03/14/21 11:00 97.8 58 18 128/71 (90) 97 Room Air 97.8 I & O 03/13/21 03/13/2121 15:00 23:00 07:00 Intake Total 540 ml 480 ml Output Total 0 ml 3 ml Balance 540 ml 480 ml -3 ml Physical Exam General: Alert, Cooperative, No acute distress Heart: Regular rate (SR/SB), Normal S1, Normal S2, No murmurs Abdomen: Normal bowel sounds, Soft, No tenderness, No hepatosplenomegaly, No masses Extremities: No clubbing, No cyanosis, No edema, Normal pulses, No tenderness/swelling Skin: No rashes, No breakdown, No significant lesion Labs Labs: Laboratory Tests Test 03/14/21 08:13 Sodium Level 144 mmol/L (136-145) Potassium Level 3.9 mmol/L (3.5-5.1) Chloride Level 108 mmol/L (98-107) Carbon Dioxide Level 28 mmol/L (21-32) Anion Gap 8 (6-14) Blood Urea Nitrogen 15 mg/dL (8-26) Creatinine 1.2 mg/dL (0.7-1.3) Estimated GFR (Cockcroft-Gault) 59.3 Glucose Level 84 mg/dL (70-99) Calcium Level 8.4 mg/dL (8.5-10.1) Review of Systems Review of Systems: no nausea. no vomiting. Assessment and Plan Assessmemt and Plan Problems Medical Problems: (1) Hypokalemia Status: Acute A/P: Acute encephalopathy - likely due to presyncopal event. Syncope/Presyncope - passed out on toilet. Likely vasovagal, but would like evaluation for bradycardia given afib history not on BB. Stop aricept indefinitely Dementia - alzheimer type on namenda and aricept Paroxysmal AFIB - on amiodarone, no BB therapy. Currently bradycardic. Cardiology consulted HTN - controlled, will hold losartan/hctz with ELISABETH. Ok for almodipine HLD - cont crestor ELISABETH - vasomotor nephropathy. Possible CKD I Weakness - OT/PT Blood culture positive - GPC appear to be staph hemolyticus and staph epidermidis almost certainly contaminant given no signs of sepsis. UA and urine culture with no growth. Continue Namenda Namenda PTOT Encourage PO intake Discharge disposition pending Give IV fluids Trend labs Home meds DVT prophylaxis Full code FEN - Cardiac diet PPX - heparin FULL CODE Dispo - inpatient Comment Review of Relevant I have reviewed the following items felisha (where applicable) has been applied. Medications: Current Medications Medications (Trade) Dose Ordered Sig/Luis Armando Route PRN Reason Start Time Stop Time Status Last Admin Dose Admin Sodium Chloride 1,000 ml @ 125 mls/hr 1X ONCE IV 03/14/21 06:45 03/14/21 14:44 03/14/21 11:35 Justifications for Admission Other Justification SIDDHARTH ELLSWORTH III DO Mar 14, 2021 12:55
--- NOTE | 2021-03-14 12:56 | PDOC ---
DEVIN HARDY LORY 03/14/21 1256: CARDIO Progress Notes Date and Time Date of Service 03/14/21 Time of Evaluation 1255 Subjective Subjective: No Chest Pain, No shortness of breath, No Palpitations, No Dizziness Vitals Vitals Vital Signs Date Time Temp Pulse Resp B/P (MAP) Pulse Ox O2 Delivery O2 Flow Rate FiO2 03/14/21 11:00 97.8 58 18 128/71 (90) 97 Room Air 97.8 Weight Weight [ ] Input and Output Intake and Output Intake and Output 03/14/21 07:00 Intake Total 1020 ml Output Total 3 ml Balance 1017 ml Intake Oral 1020 ml Output Urine Total 3 ml # Voids 3 Laboratory Labs Laboratory Tests Test 03/14/21 08:13 Sodium Level 144 mmol/L (136-145) Potassium Level 3.9 mmol/L (3.5-5.1) Chloride Level 108 mmol/L (98-107) Carbon Dioxide Level 28 mmol/L (21-32) Anion Gap 8 (6-14) Blood Urea Nitrogen 15 mg/dL (8-26) Creatinine 1.2 mg/dL (0.7-1.3) Estimated GFR (Cockcroft-Gault) 59.3 Glucose Level 84 mg/dL (70-99) Calcium Level 8.4 mg/dL (8.5-10.1) Microbiology Micro Microbiology 03/11/21 Blood Culture - Preliminary, Resulted NO GROWTH AFTER 3 DAYS 03/10/21 Urine Culture - Final, Complete Physical Exam HEENT: Neck Supple W Full Motion Chest: Symmetric LUNGS: Clear to Auscultation, Other (diminished bases) Heart: S1S2, RRR (SR/SB), no gallops Extremities: No Edema Neurology: alert, follow commands, confused Assessment Assessment 1. Presyncope: suspect vasovagal with associated vomiting/diarrhea episode 2. Weakness 3. Dementia; Namenda 4. PAFIB: presently with SB lowest at 38 with long first degree AV block. Presently 50s, no pauses. Aricept held. Avoid AV jeronimo blocking agents. Consider ILR for long-term rhythm monitoring. ASA therapy 5. HTN: controlled 6. HLP: on crestor 7. CKD; Cr stable. Justicifation of Admission Dx: Justifications for Admission: Justification of Admission Dx: N/A AZEB MAZARIEGOS MD 03/15/21 1005: CARDIO Progress Notes Assessment Assessment Patient seen and examined 03/14/21. Agree with CERTIFIED FLIGHT INSTRUCTOR's assessment and plan. Near syncope most probably vasovagal PAF presently sinus bradycardia DEVIN HARDY APRN Mar 14, 2021 12:56 AZEB MAZARIEGOS MD Mar 15, 2021 10:05
[2021-03-14 15:00] VITALS: BP 123/66
[2021-03-14] MEDS: ASPIRIN CHEWABLE 81 MG TABLET. PO SCH (18:14)
[2021-03-14] MEDS: OMEGA-3 FATTY ACIDS/FISH OIL 1,000 MG CAPSULE. PO SCH (18:14)
[2021-03-14] MEDS: CETIRIZINE HCL 10 MG TABLET. PO SCH (18:14)
[2021-03-14] MEDS: CHOLECALCIFEROL (VITAMIN D3) 1,000 UNIT TABLET PO SCH (18:14)
[2021-03-14 18:54] VITALS: BP 126/62
[2021-03-14] MEDS: ATORVASTATIN CALCIUM 20 MG TABLET PO SCH (20:54)
[2021-03-14 23:00] VITALS: BP_SYST 139; BP_SYST 81; BP_DIAS 58; BP_DIAS 84
[2021-03-15 07:00] VITALS: BP 138/78
[2021-03-15] MEDS: MAGNESIUM OXIDE 400 MG TABLET PO SCH (10:29)
[2021-03-15] MEDS: LACTOBACILLUS RHAMNOSUS GG 1 CAPSULE. PO SCH (10:29)
[2021-03-15] MEDS: ASPIRIN CHEWABLE 81 MG TABLET. PO SCH (10:29)
[2021-03-15] MEDS: MEMANTINE 10 MG TABLET. PO SCH (10:29)
[2021-03-15] MEDS: CITALOPRAM 20 MG TABLET. PO SCH (10:30)
[2021-03-15] MEDS: FLUTICASONE 50MCG/NASAL SPRAY 16GM BOTTLE. NS SCH (10:33)
[2021-03-15 11:00] VITALS: BP 136/79
--- NOTE | 2021-03-15 12:14 | PDOC ---
HAYLEYDEVIN PAIGE LORY 03/15/21 1214: CARDIO Progress Notes Date and Time Date of Service 03/15/21 Time of Evaluation 1210 Subjective Subjective: No Chest Pain, No shortness of breath, No Palpitations, No Dizziness Vitals Vitals Vital Signs Date Time Temp Pulse Resp B/P (MAP) Pulse Ox O2 Delivery O2 Flow Rate FiO2 03/15/21 11:00 98.4 85 18 136/79 (98) 94 Room Air 98.4 Weight Weight [ ] Input and Output Intake and Output Intake and Output 03/15/21 07:00 Intake Total 880 ml Output Total 1 ml Balance 879 ml Intake Oral 880 ml Stool Total 1 ml # Voids 2 Laboratory Labs Laboratory Tests Test 03/14/21 18:22 SARS-CoV-2 RNA (PATIENCE) Negative (Negative) Microbiology Micro Microbiology 03/11/21 Blood Culture - Preliminary, Resulted NO GROWTH AFTER 4 DAYS 03/10/21 Urine Culture - Final, Complete Physical Exam HEENT: Neck Supple W Full Motion Chest: Symmetric LUNGS: Clear to Auscultation, Other (diminished bases) Heart: S1S2, RRR (SR/SB), no gallops Abdomen: Soft N/T Extremities: No Edema Neurology: alert, follow commands, confused Assessment Assessment 1. Presyncope: suspect vasovagal with associated vomiting/diarrhea episode 2. Weakness 3. Dementia; on Namenda. Aricept discontinued with bradycardia 4. PAFIB, bradycardia. lowest at 38 with first degree AV block.no pauses. Aricept held. Presently SR in 70s. Avoid AV jeronimo blocking agents. Consider ILR for long-term rhythm monitoring if symptoms recurrent. ASA therapy. Follow up in our office with Dr. Stuart 5. HTN: controlled 6. HLP: on crestor 7. CKD; Cr stable. Justicifation of Admission Dx: Justifications for Admission: Justification of Admission Dx: N/A AZEB STUART MD 03/15/21 1704: CARDIO Progress Notes Assessment Assessment Patient seen and examined. Agree with MILLED RUBBER TENDER's assessment and plan. Near syncope most probably vasovagal PAF presently sinus bradycardia We will consider loop recorder implantation as an outpatient HAYLEY,DEVIN HENLEY Mar 15, 2021 12:14 AZEB STUART MD Mar 15, 2021 17:04
--- NOTE | 2021-03-15 12:50 | PDOC ---
[facility] PROGRESS NOTE Date of Service DOS: DATE: 03/15/21 TIME: 12:45 Chief Complaint Chief Complaint CC: Acute encephalopathy Syncope/Presyncope Dementia Paroxysmal AFIB HTN HLD ELISABETH Weakness History of Present Illness History of Present Illness Mr Sen is a 75 year old male with history of A. fib, hypertension, dementia, depression, GERD who presents the ED via EMS for passing out at home. His noted he had been lethargic all day on 03/10/2021 and was too weak to get out of bed and had a urinary accident in the bed. Later in the day she go him up tot he restroom and had diarrhea and vomiting and then "blacked out". No seizure activity noted. She called EMS to get him off the toilet and he did not fall, was noted to be bradycardic. He is confused and does not recall any of these events. He denies any complaints except a bit of right anterior thigh pain. No pain on ROM. CT head and cervical spine negative for acute abnormality Chest radiograph negative for acute abnormality. Rapid COVID-19 negative, WBC 5 2, Hb 16.5, platelets 137, NA 141, K3.3, BUN 15, CR 1.6, calcium 8.3, albumin 3.2, lactic acid 3.1, NT proBNP 711, troponin 0, TSH 2.176 Admitted for further care. Started on empiric rocephin for blood cultures positive for GPC, admitted to telemetry with cardiology consultation for bradycardia 03/12: No overnight events. Still very confused but is oriented to the hospital and easily redirected. Still with bradycardia in the forties. Unsteady on his feet. Blood culture of GPC appear to be staph hemolyticus and staph epidermidis almost certainly contaminant. UA and urine culture NGTD. 03/13: No overnight events. Still confused easily redirected. Unsteady in physical occupational therapy recommends SNF for gait training and rehab heart rate monitoring. 03/14: Patient seen and examined. Discussed with RN. Chart reviewed. 03/15: Patient was seen and examined. Discussed with RN. Chart reviewed. Possible transfer to [facility] being discussed. Vitals/I&O Vitals/I&O: Vital Signs Date Time Temp Pulse Resp B/P (MAP) Pulse Ox O2 Delivery O2 Flow Rate FiO2 03/15/21 11:00 98.4 85 18 136/79 (98) 94 Room Air 98.4 I & O 03/14/21 03/14/21 03/15/21 15:00 23:00 07:00 Intake Total 440 ml 200 ml 240 ml Output Total 1 ml Balance 440 ml 200 ml 239 ml Physical Exam General: Alert, Cooperative, No acute distress Heart: Regular rate (SR/SB), Normal S1, Normal S2, No murmurs Abdomen: Normal bowel sounds, Soft, No tenderness, No hepatosplenomegaly, No masses Extremities: No clubbing, No cyanosis, No edema, Normal pulses, No tenderness/swelling Skin: No rashes, No breakdown, No significant lesion Labs Labs: Laboratory Tests Test 03/14/21 18:22 SARS-CoV-2 RNA (PATIENCE) Negative (Negative) Review of Systems Review of Systems: no vomiting. no nausea. no rashes. Assessment and Plan Assessmemt and Plan Problems Medical Problems: (1) Hypokalemia Status: Acute Acute encephalopathy Syncope/Presyncope Dementia Paroxysmal AFIB HTN HLD ELISABETH Weakness Plan: Get covid-19 PCR results Continue discussion on transfer to [facility] IV fluids Trend labs Home meds DVT prophylaxis PT/OT Encourage PO intake Discharge disposition pending Comment Review of Relevant I have reviewed the following items felisha (where applicable) has been applied. Medications: Current Medications Medications (Trade) Dose Ordered Sig/Luis Armando Route PRN Reason Start Time Stop Time Status Last Admin Dose Admin Lorazepam (Ativan) 1 mg PRN Q6HRS PRN PO ANXIETY / AGITATION 03/14/21 22:15 03/14/21 22:43 Justifications for Admission Other Justification SIDDHARTH ELLSWORTH III DO Mar 15, 2021 12:50
--- NOTE | 2021-03-15 12:56 | SNU/HH DC ---
DISCHARGE ORDERS DISCHARGE INFORMATION: FINAL DIAGNOSIS Problems Medical Problems: (1) Hypokalemia Status: Acute CONDITION ON DISCHARGE: Stable CODE STATUS: Code Status: Full LONG TERM: SNF STAY <30 DAYS: Yes HOSPICE: HOSPICE: No HOSPICE EVAL & TREAT: No LTAC: ADMIT TO LTAC: No POST DISCHARGE ORDERS: ACTIVITY ORDERS: Activity as tolerated WEIGHT BEARING STATUS: As tolerated DIET AFTER DISCHARGE: Cardiac WOUND/INCISION CARE: Ice to area for comfort, Keep wound elevated CHECKS AFTER DISCHARGE: CHECKS AFTER DISCHARGE: Check blood press - daily TREATMENT/EQUIPMENT ORDERS: Physical Therapy For: Evalulation/Treatment Occupational Therapy For: Evaluation/Treatment Speech Language Pathology For: Evaluation/Treatment DISCHARGE MEDICATIONS: Home Meds Active Scripts Potassium Chloride (POTASSIUM CHLORIDE ) 20 Meq Tablet.er, 20 MEQ PO DAILY for 7 Days, #7 TAB.SR Prov:ROSE CLARK APRN 08/16/18 Donepezil Hcl (ARICEPT) 10 Mg Tablet, 10 MG PO DAILY for 30 Days, #30 TAB Prov:PEDRO VANCE MD 07/18/17 Memantine HCl (Memantine HCl) 10 Mg Tablet, 10 MG PO BID for 30 Days, #60 TAB Prov:PEDRO VANCE MD 07/18/17 Losartan Potassium (LOSARTAN POTASSIUM) 50 Mg Tablet, 100 MG PO DAILY for 30 Days, #60 TAB Prov:PEDRO VANCE MD 07/18/17 Amlodipine Besylate (AMLODIPINE BESYLATE) 5 Mg Tablet, 10 MG PO DAILY for 30 Days, #60 TAB Prov:PEDRO VANCE MD 07/18/17 Reported Medications Losartan/Hydrochlorothiazide (LOSARTAN-HCTZ 50-12.5 MG TAB) 1 Each Tablet, 1 TAB PO DAILY for htn, #30 TAB 5 Refills 03/11/21 Magnesium Oxide (MAGNESIUM) 500 Mg Capsule, 1 CAP PO BID for supplement for 30 Days, #60 CAP 0 Refills 03/11/21 Escitalopram Oxalate (ESCITALOPRAM OXALATE) 20 Mg Tablet, 1 TAB PO DAILY for neuro, #30 TAB 5 Refills 03/11/21 Amlodipine Besylate (AMLODIPINE BESYLATE) 5 Mg Tablet, 5 MG PO DAILY for htn, TAB 03/11/21 Amiodarone Hcl (AMIODARONE HCL) 200 Mg Tablet, 1 TAB PO DAILY for arrythmia, #90 TAB 1 Refill 03/11/21 Rosuvastatin Calcium (CRESTOR) 5 Mg Tablet, 2 TAB PO DAILY for HLD, #30 TAB 5 Refills 03/11/21 Fluticasone Propionate (Flonase Allergy Relief) 9.9 Ml Bernard.susp, 2 SPRAYS NS DAILY, BOTTLE 11/23/17 Cholecalciferol (Vitamin D3) (VITAMIN D3) 1,000 Unit Tablet, 2 TAB PO QEVNG, #30 TAB 5 Refills 11/23/17 Bouton-3 Fatty Acids/Fish Oil (FISH OIL 1,000 MG CAPSULE) 1 Each Capsule, 1 EACH PO QEVNG, CAP 07/14/17 Aspirin (ASPIRIN) 81 Mg Tab.chew, 81 MG PO QEVNG, TAB.CHEW 09/09/15 Fexofenadine Hcl (TONI ALLERGY) 180 Mg Tablet, 180 MG PO QEVNG, TAB 09/09/15 Omeprazole (PRILOSEC) 20 Mg Capsule.dr, 20 MG PO HS, CAP 09/09/15 Discontinued Reported Medications Apixaban (ELIQUIS) 5 Mg Tablet, 5 MG PO BID, TAB 11/23/17 Pravastatin Sodium (PRAVACHOL) 40 Mg Tablet, 40 MG PO HS, TAB 09/09/15 SIDDHARTH ELLSWORTH III DO Mar 15, 2021 12:56
--- NOTE | 2021-03-15 14:06 | SNU/HH DC ---
DISCHARGE ORDERS DISCHARGE INFORMATION: FINAL DIAGNOSIS Problems Medical Problems: (1) Hypokalemia Status: Acute CONDITION ON DISCHARGE: Stable CODE STATUS: Code Status: Full SHELTER: SNF STAY <30 DAYS: Yes HOSPICE: HOSPICE: No HOSPICE EVAL & TREAT: No LTAC: ADMIT TO LTAC: No POST DISCHARGE ORDERS: ACTIVITY ORDERS: Activity as tolerated WEIGHT BEARING STATUS: As tolerated DIET AFTER DISCHARGE: Cardiac WOUND/INCISION CARE: Ice to area for comfort, Keep wound elevated CHECKS AFTER DISCHARGE: CHECKS AFTER DISCHARGE: Check blood press - daily TREATMENT/EQUIPMENT ORDERS: Physical Therapy For: Evalulation/Treatment Occupational Therapy For: Evaluation/Treatment Speech Language Pathology For: Evaluation/Treatment DISCHARGE MEDICATIONS: Home Meds Active Scripts Potassium Chloride (POTASSIUM CHLORIDE ) 20 Meq Tablet.er, 20 MEQ PO DAILY for 7 Days, #7 TAB.SR Prov:ROSE CLARK WARP PLACER 08/16/18 Donepezil Hcl (ARICEPT) 10 Mg Tablet, 10 MG PO DAILY for 30 Days, #30 TAB Prov:PEDRO VANCE MD 07/18/17 Memantine HCl (Memantine HCl) 10 Mg Tablet, 10 MG PO BID for 30 Days, #60 TAB Prov:PEDRO VANCE MD 07/18/17 Losartan Potassium (LOSARTAN POTASSIUM) 50 Mg Tablet, 100 MG PO DAILY for 30 Days, #60 TAB Prov:PEDRO VANCE MD 07/18/17 Reported Medications Magnesium Oxide (MAGNESIUM) 500 Mg Capsule, 1 CAP PO BID for supplement for 30 Days, #60 CAP 0 Refills 03/11/21 Escitalopram Oxalate (ESCITALOPRAM OXALATE) 20 Mg Tablet, 1 TAB PO DAILY for neuro, #30 TAB 5 Refills 03/11/21 Amlodipine Besylate (AMLODIPINE BESYLATE) 5 Mg Tablet, 5 MG PO DAILY for htn, TAB 03/11/21 Amiodarone Hcl (AMIODARONE HCL) 200 Mg Tablet, 1 TAB PO DAILY for arrythmia, #90 TAB 1 Refill 03/11/21 Rosuvastatin Calcium (CRESTOR) 5 Mg Tablet, 2 TAB PO DAILY for HLD, #30 TAB 5 Refills 03/11/21 Fluticasone Propionate (Flonase Allergy Relief) 9.9 Ml [place].susp, 2 SPRAYS NS DAILY, BOTTLE 11/23/17 Cholecalciferol (Vitamin D3) (VITAMIN D3) 1,000 Unit Tablet, 2 TAB PO QEVNG, #30 TAB 5 Refills 11/23/17 Hammond-3 Fatty Acids/Fish Oil (FISH OIL 1,000 MG CAPSULE) 1 Each Capsule, 1 EACH PO QEVNG, CAP 07/14/17 Aspirin (ASPIRIN) 81 Mg Tab.chew, 81 MG PO QEVNG, TAB.CHEW 09/09/15 Fexofenadine Hcl (TONI ALLERGY) 180 Mg Tablet, 180 MG PO QEVNG, TAB 09/09/15 Omeprazole (PRILOSEC) 20 Mg Capsule.dr, 20 MG PO HS, CAP 09/09/15 Discontinued Reported Medications Apixaban (ELIQUIS) 5 Mg Tablet, 5 MG PO BID, TAB 11/23/17 Pravastatin Sodium (PRAVACHOL) 40 Mg Tablet, 40 MG PO HS, TAB 09/09/15 SIDDHARTH ELLSWORTH III DO Mar 15, 2021 14:06
[2021-03-15 15:00] VITALS: BP 123/70
--- NOTE | 2021-03-15 16:16 | NUR ---
report given to ELISHA Perez, at [facility]. meds and follow up reviewed. pt had no iv at time of DC
--- NOTE | 2021-03-15 18:47 | DS ---
DATE OF DISCHARGE: 03/15/2021 ADMITTING DIAGNOSES: Mental status change with history of dementia, probable encephalopathy. DISCHARGE DIAGNOSES: Resolving encephalopathy, dementia, hypertension, hyperlipidemia and acute kidney injury, resolving. CONSULTS: Cardiology. PROCEDURES: None. HOSPITAL COURSE: The patient is a pleasant older male who has dementia and presented with mental status change. He appeared to have a metabolic encephalopathy. He was admitted. We gave him IV fluids, empiric IV antibiotics. We did some physical therapy and occupational therapy, and basically over the past several days, he has returned to his baseline. Today, I saw and examined him, he is doing well. We plan to discharge to intermediate. DISPOSITION: custodial. ACTIVITY: As tolerated. DIET: Low sodium. DISCHARGE MEDICATIONS: Please see the MRAD. Amiodarone 200 a day, amlodipine 10 a day, aspirin 81 a day, vitamin D, Aricept 10 a day, fexofenadine 180 daily, Flonase, losartan 100 a day, magnesium oxide 500 a day, memantine 10 b.i.d., omega 3 fish oil, Prilosec 20 a day, potassium 20 a day and Crestor 10 mg a day. Total time on this will be 36 minutes. DRU/HUSSAIN/ESSIE DR: Kadie TID: [id number]
== END 2021-03-15 16:00 | DRG 682 ==
LOC: ER 20:39 → ED HOLD 21:59 → 5 NORTH 03-11 04:49
PROVIDERS: ADMIT Internal Medicine; ATTEND Internal Medicine
DX: N17.0 Acute kidney failure with tubular necrosis (principal); G93.41 Metabolic encephalopathy; I48.0 Paroxysmal atrial fibrillation; E87.6 Hypokalemia; E78.5 Hyperlipidemia, unspecified; F02.80 Dementia in other diseases classified elsewhere, unspecified severity, without behavioral disturbance, psychotic disturbance, mood disturbance, and anxiety; G30.9 Alzheimer's disease, unspecified; I12.9 Hypertensive chronic kidney disease with stage 1 through stage 4 chronic kidney disease, or unspecified chronic kidney disease; I44.0 Atrioventricular block, first degree; M43.12 Spondylolisthesis, cervical region; N18.30 Chronic kidney disease, stage 3 unspecified; Z82.49 Family history of ischemic heart disease and other diseases of the circulatory system; Z87.442 Personal history of urinary calculi; Z90.49 Acquired absence of other specified parts of digestive tract; F32.9 Major depressive disorder, single episode, unspecified; K21.9 Gastro-esophageal reflux disease without esophagitis; M19.90 Unspecified osteoarthritis, unspecified site; Z88.2 Allergy status to sulfonamides; Z88.8 Allergy status to other drugs, medicaments and biological substances
CPT/HCPCS: 36415; 70450; 71045; 72125; 80048; 80053; 80307; 81001; 83605; 83735; 83880; 84145; 84443; 84484; 85025; 87040; 87086; 87205; 87426; 93005; 96360; 96361; J0696; J7030; U0003; U0005; 97110-GP; 97116-GP; 97530-GO; 97535-GO; 99285-25; G0378

== ENCOUNTER → 2021-08-03 | Outpatient (CLI) | payer MEDICARE ==
[~2021-08-03] MED LIST changes: +AMIO200T53 PO; +CRESTOR5 MG PO; +LOSA1TAB19 PO; +MAGN500C10 PO
--- NOTE | 2021-08-03 16:47 | CARD ---
MR#: [id number] Date of Study: 08/03/2021 Ordering Physician: AZEB MAZARIEGOS, Referring Physician: AZEB MAZARIEGOS Tech: Mary Ellen Sexton [facility] APPROVED REPORT EXAM: Two-dimensional and M-mode echocardiogram with Doppler and color Doppler. Other Information Quality : AverageHR: 59bpm Rhythm : NSR INDICATION Cardiac Disease: CAD RISK FACTORS Hypertension Hyperlipidemia 2D DIMENSIONS RVDd3.3 (2.9-3.5cm)Left Atrium(2D)3.4 (1.6-4.0cm) IVSd1.0 (0.7-1.1cm)Aortic Root(2D)4.2 (2.0-3.7cm) LVDd4.5 (3.9-5.9cm)LVOT Diameter2.4 (1.8-2.4cm) PWd1.0 (0.7-1.1cm)LVDs2.2 (2.5-4.0cm) FS (%) 50.3 %SV74.5 ml LVEF(%)81.8 (>50%) Aortic Valve AoV Peak Luiz.160.8cm/sAoV VTI30.5cm AO Peak GR.10.3mmHgLVOT Peak Luiz.113.1cm/s AO Mean GR.5mmHgAVA (VMAX)3.18cm2 AI P 1/2 Motn879vl Mitral Valve MV E Vmggdcvr91.1cm/sMV DECEL [id number] MV A Lngwgdys32.4cm/sE/A Ratio1.2 Pulmonary Valve PV Peak Bumzzskg057.8cm/s Tricuspid Valve TR P. Bsgggnoe780is/sTR Peak Gr.30mmHg LEFT VENTRICLE The left ventricle is normal size. There is normal left ventricular wall thickness. The left ventricu lar systolic function is normal. Estimated ejection fraction 60%. There is normal LV segmental wall motion. Transmitral Doppler flow pattern is Grade II-pseudonormal filling dynamics. RIGHT VENTRICLE The right ventricle is normal size. There is normal right ventricular wall thickness. The right ventr icular systolic function is normal. ATRIA The left atrium is mildly dilated. The right atrium size is normal. The interatrial septum is intact with no evidence for an atrial septal defect or patent foramen ovale as noted on 2-D or Doppler imagi ng. AORTIC VALVE The aortic valve is normal in structure and function. Doppler and Color Flow revealed mild aortic reg urgitation. There is no significant aortic valvular stenosis. MITRAL VALVE The mitral valve is normal in structure and function. There is no evidence of mitral valve prolapse. There is no mitral valve stenosis. Doppler and Color-flow revealed trace to mild mitral regurgitation . TRICUSPID VALVE The tricuspid valve is normal in structure and function. Doppler and Color Flow revealed mild tricusp id regurgitation. Estimated PAP 35 mmHg. There is no tricuspid valve stenosis. PULMONIC VALVE The pulmonary valve is normal in structure and function. Doppler and Color Flow revealed mild pulmoni c valvular regurgitation. GREAT VESSELS The aortic root is mildly enlarged. The ascending aorta is Mildly dilated. The IVC is normal in size and collapses >50% with inspiration. PERICARDIAL EFFUSION There is no evidence of significant pericardial effusion. Critical Notification Critical Value: No <Conclusion> The left ventricular systolic function is normal. Estimated ejection fraction 60%. There is normal LV segmental wall motion. Transmitral Doppler flow pattern is Grade II-pseudonormal filling dynamics. Mild aortic regurgitation. Trace to mild mitral regurgitation. Mild tricuspid regurgitation. Estimated PAP 35 mmHg. There is no evidence of significant pericardial effusion. Signed by : Azeb Mazariegos, Electronically Approved : 08/03/2021 16:47:27
== END ==
LOC: ECHO 12:48
PROVIDERS: ATTEND Internal Medicine Cardiovascular Disease
DX: I08.8 Other rheumatic multiple valve diseases (principal); I77.810 Thoracic aortic ectasia; I48.91 Unspecified atrial fibrillation; I25.10 Atherosclerotic heart disease of native coronary artery without angina pectoris
CPT/HCPCS: 93306

== ENCOUNTER 2021-10-27 13:38 | Inpatient (IN) | payer MEDICARE ==
[~2021-10-27] VITALS: Ht 185.4 cm; Wt 100.4 kg
[~2021-10-27 13:38] MED LIST changes: +MAGN500C PO; -MAGN500C10 PO
--- NOTE | 2021-10-27 14:12 | EKG ---
[facility] [address] [place] [address] Test Date: 2021-10-27 Test Time: 14:08:57 Pat Name: MONCHO DEVINE Department: Room: Gender: M Digital Marketer: : 1945 Requested By: PEDRO MENDOZA Order Number: [id number] Reading MD: Mohit Stuart Measurements Intervals Bruce Rate: 50 P: 0 [place]: 216 QRS: -36 QRSD: 102 T: 19 QT: 490 QTc: 450 Interpretive Statements SINUS RHYTHM ABNORMAL LEFT AXIS DEVIATION QRS(T) CONTOUR ABNORMALITY CONSISTENT WITH INFERIOR INFARCT PROBABLY OLD Electronically Signed On 11-04-2021 14:21:02 CDT by Mohit Stuart
--- NOTE | 2021-10-27 14:13 | PHYS DOC ---
Past Medical History Past Medical History: A-Fib, Dementia, Depression, GERD, Hypertension, Other Additional Past Medical Histor: ALZHEIMER'S, metabolic encephalopathy Past Surgical History: Appendectomy, Tonsillectomy, Other Additional Past Surgical Histo: ear tumor removed Smoking Status: Never Smoker Alcohol Use: None Drug Use: None General Adult EDM: Chief Complaint: WEAKNESS/GENERALIZED HPI: HPI: Patient is a 75 year old male with history of hypertension, dementia, Alzheimer's, metabolic encephalopathy, A. fib on Eliquis, who presents the ED today to be evaluated for altered mental status. Patient comes from [facility] and he states since 11 AM this morning he has been drowsy and less responsive. Patient is a poor historian. Alert and oriented to self only. Review of Systems: Review of Systems: Constitutional: Unable to obtain due to mentation Eyes: Unable to obtain due to mentation HENT: Unable to obtain due to mentation Respiratory: Unable to obtain due to mentation Cardiovascular: Unable to obtain due to mentation GI: Unable to obtain due to mentation : Unable to obtain due to mentation Musculoskeletal: Unable to obtain due to mentation Integument: Unable to obtain due to mentation Neurologic: EMS reports drowsy and less responsive Psychiatric: Unable to obtain due to mentation Heart Score: C/O Chest Pain: N/A Risk Factors: Risk Factors: DM, Current or recent (<one month) smoker, HTN, HLP, family history of CAD, obesity. Risk Scores: Score 0 - 3: 2.5% MACE over next 6 weeks - Discharge Home Score 4 - 6: 20.3% MACE over next 6 weeks - Admit for Clinical Observation Score 7 - 10: 72.7% MACE over next 6 weeks - Early Invasive Strategies Allergies: Allergies: Allergies Coded Allergies Type Severity Reaction Last Updated Verified Sulfa (Sulfonamide Antibiotics) Adverse Reaction Intermediate "SHAKES" 03/12/21 Yes meloxicam Adverse Reaction Intermediate "SHAKES" 03/12/21 Yes SIGRID Inhibitors Adverse Reaction Mild COUGH 02/01/18 Yes Physical Exam: PE: Constitutional:Drowsy but arousable with minimal stimulation. Well developed, well nourished, no acute distress, non-toxic appearance. [] HENT: Normocephalic, atraumatic, bilateral external ears normal, oropharynx moist, no oral exudates, nose normal. [] Eyes: PERRLA, EOMI, conjunctiva normal, no discharge. [] Neck: Normal range of motion, no tenderness, supple, no stridor. [] Cardiovascular:Heart rate regular rhythm Lungs & Thorax: Bilateral breath sounds clear to auscultation [] Abdomen: Bowel sounds normal, soft, no tenderness, no masses, no pulsatile masses. [] Skin: Warm, dry, no erythema, no rash. [] Back: No tenderness, no CVA tenderness. [] Extremities: No tenderness, no cyanosis, no clubbing, ROM intact, no edema. [] Neurologic: Alert and oriented X 2, normal motor function, normal sensory function, no focal deficits noted. Cranial nerves II through XII intact Psychologic: flat Current Patient Data: Vital Signs: Vital Signs Date Time Temp Pulse Resp B/P (MAP) Pulse Ox O2 Delivery O2 Flow Rate FiO2 10/27/21 13:38 98.2 50 16 160/70 (100) 94 Nasal Cannula 2.0 98.2 EKG: EKG: [] Radiology/Procedures: Radiology/Procedures: []PROCEDURE: CT HEAD WO CONTRAST EXAMINATION: CT HEAD/BRAIN WO CLINICAL HISTORY: Altered mental status. TECHNIQUE: Serial axial images without IV contrast were obtained from the vertex to the foramen magnum. CT Dose Reduction Employed: One or more of the following individualized dose reduction techniques were utilized for this examination: 1. Automated exposure control 2. Adjustment of the mA and/or kV according to patient size 3. Use of iterative reconstruction technique. COMPARISON: CT head and C-spine 03/10/2021 FINDINGS: Acute Change: No evidence of an acute infarct or other acute parenchymal process. Hemorrhage: No evidence of acute intracranial hemorrhage. Mass Lesion/Mass Effect: No evidence of intracranial mass or extraaxial fluid collection. No significant mass effect. Chronic Change: Confluent and patchy hypoattenuation in the supratentorial white matter, nonspecific but likely represents moderate to marked microvascular ischemia. Atherosclerotic calcification of the intracranial portion of the bilateral internal carotid arteries. Parenchyma: Moderate generalized volume loss. Ventricles: Ventricular enlargement concordant with degree of parenchymal volume loss. Paranasal Sinuses and Skull Base: Visualized paranasal sinuses clear. Visualized skull base and soft tissues unremarkable. IMPRESSION: No evidence of acute intracranial abnormality or significant interval change. Electronically signed by: Kemal Brar DO (10/27/2021 3:09 PM) [id number] DICTATED and SIGNED BY: KEMAL BRAR DO DATE: 10/27/21 1506 Course & Med Decision Making: Course & Med Decision Making Pertinent Labs and Imaging studies reviewed. (See chart for details) This a 75-year-old male patient presented to the ED today from a local halfway to be evaluated for drowsiness and decreased responsiveness that began at 11 AM. Patient is alert and oriented x2 Vitals en route to the ED temperature 98.2, heart rate 50, respirations 16, blood pressure 160/70, O2 sats 94% on room air. CT of the head is negative, chest x-ray is negative, CBC CMP with no acute findings, lactic is normal. UA negative for infection. Spoke to Dr. Canales who accepted patient for admission Request for neurology placed [facility] urology consult placed request by Dr. Ally Flores Disclaimer: Mark Disclaimer: This electronic medical record was generated, in whole or in part, using a voice recognition dictation system. Departure Departure Impression: Primary Impression: Altered mental status Qualified Codes: R41.82 - Altered mental status, unspecified Disposition: ADMITTED INPATIENT Condition: STABLE Referrals: PEDRO VANCE MD (PCP) PEDRO MENDOZA DISPENSING LEAD Oct 27, 2021 14:13
[2021-10-27 14:29] LABS: BASO # 0.1 x10^3/uL (0.0-0.2); BASO % 1 % (0-3); EOS % 0 % (0-3); HEMOGLOBIN 14.9 g/dL (13.0-17.5); LYMPH % 11 % (24-48); MEAN CORPUSCULAR HEMOGLOBIN 29 pg (25-35); MEAN CORPUSCULAR HGB CONC 33 g/dL (31-37); MEAN CORPUSCULAR VOLUME 88 fL (79-100); MONO # 0.4 x10^3/uL (0.0-1.1); MONO % 4 % (0-9); NEUT % 84 % (31-73); PLATELET COUNT 147 x10^3/uL (140-400); RED BLOOD COUNT 5.11 x10^6/uL (4.30-5.70); RED CELL DISTRIBUTION WIDTH 13.4 % (11.5-14.5); WHITE BLOOD COUNT 9.5 x10^3/uL (4.0-11.0)
[2021-10-27 14:40] LABS: PROTHROMBIN TIME PATIENT 14.1 SEC (11.7-14.0)
--- NOTE | 2021-10-27 14:47 | RAD ---
EXAMINATION: XR CHEST 1V CLINICAL HISTORY: Altered mental status. EXAM DATE/TIME: 10/27/2021 2:16 PM COMPARISON: 03/10/2021 FINDINGS: Lines, Tubes, and Devices: None. Cardiomediastinal Silhouette: Normal heart size. Lungs and Pleura: Mild bibasilar subsegmental atelectasis and/or scarring. No evidence of pleural eff usion or pneumothorax. Bones and Soft Tissues: Degenerative changes in the thoracic spine. IMPRESSION: No evidence of acute cardiopulmonary abnormality. Electronically signed by: Kemal De Leon DO (10/27/2021 2:45 PM) [id number]
[2021-10-27 14:51] LABS: CALCIUM 8.2 mg/dL (8.5-10.1); CREATININE 1.1 mg/dL (0.7-1.3); GFR 65.6
[2021-10-27 15:01] LABS: ALBUMIN 3.2 g/dL (3.4-5.0); ALBUMIN/GLOBULIN RATIO 1.3 (1.0-1.7); MAGNESIUM 2.3 mg/dL (1.8-2.4); TOTAL BILIRUBIN 1.5 mg/dL (0.2-1.0); TOTAL PROTEIN 5.7 g/dL (6.4-8.2)
--- NOTE | 2021-10-27 15:11 | RAD ---
EXAMINATION: CT HEAD/BRAIN WO CLINICAL HISTORY: Altered mental status. TECHNIQUE: Serial axial images without IV contrast were obtained from the vertex to the foramen magnu m. CT Dose Reduction Employed: One or more of the following individualized dose reduction techniques te e utilized for this examination: 1. Automated exposure control 2. Adjustment of the mA and/or kV ac cording to patient size 3. Use of iterative reconstruction technique. COMPARISON: CT head and C-spine 03/10/2021 FINDINGS: Acute Change: No evidence of an acute infarct or other acute parenchymal process. Hemorrhage: No evidence of acute intracranial hemorrhage. Mass Lesion/Mass Effect: No evidence of intracranial mass or extraaxial fluid collection. No signific ant mass effect. Chronic Change: Confluent and patchy hypoattenuation in the supratentorial white matter, nonspecific but likely represents moderate to marked microvascular ischemia. Atherosclerotic calcification of the intracranial portion of the bilateral internal carotid arteries. Parenchyma: Moderate generalized volume loss. Ventricles: Ventricular enlargement concordant with degree of parenchymal volume loss. Paranasal Sinuses and Skull Base: Visualized paranasal sinuses clear. Visualized skull base and soft tissues unremarkable. IMPRESSION: No evidence of acute intracranial abnormality or significant interval change. Electronically signed by: Kemal De Leon DO (10/27/2021 3:09 PM) [id number]
[2021-10-27 16:35] LABS: AMPHETAMINE/METHAMPHETAMINE NEG (NEG); BARBITURATES NEG (NEG); BENZODIAZEPINES NEG (NEG); CANNABINOIDS NEG (NEG); COCAINE NEG (NEG); METHADONE NEG (NEG); OPIATES NEG (NEG); PHENCYCLIDINE NEG (NEG)
[2021-10-27 16:41] LABS: BACTERIA,URINE 0 /HPF (0-FEW); RBC,URINE OCC /HPF (0-2)
[2021-10-27 16:45] LABS: INFLUENZA A PATIENT NEGATIVE (NEGATIVE); INFLUENZA B PATIENT NEGATIVE (NEGATIVE)
[2021-10-27] MEDS ORDERED: ACETAMINOPHEN 325 MG TABLET. PO PRN (19:15)
[2021-10-27] MEDS ORDERED: MORPHINE SULFATE 2 MG/ML INJ. IVP PRN (19:15)
[2021-10-27] MEDS ORDERED: ONDANSETRON PF 4 MG/2 ML VIAL. IVP PRN (19:15)
--- NOTE | 2021-10-27 19:30 | NUR ---
Admit from ER. AMS and weakness. Oriented to self only. Wet brief on. Spouse at bedside.
[2021-10-27 23:00] VITALS: BP 151/73
--- NOTE | 2021-10-28 00:42 | EKG ---
[facility] [address] [place] [address] Test Date: 2021-10-27 Test Time: 17:03:32 Pat Name: MONCHO DEVINE Department: Room: 538 1 Gender: M Quail Farmer: : 1945 Requested By: PEDRO MENDOZA Order Number: [id number] Reading MD: Mohit Stuart Measurements Intervals [place] Rate: 50 P: 59 [place]: 218 QRS: -22 QRSD: 100 T: 9 QT: 496 QTc: 455 Interpretive Statements SINUS RHYTHM LEFTWARD AXIS QRS(T) CONTOUR ABNORMALITY CONSIDER INFERIOR INFARCT Electronically Signed On 11-04-2021 14:20:30 CDT by Mohit Stuart
[2021-10-28 03:00] VITALS: BP 150/68
[2021-10-28 05:06] LABS: BASO % 0 % (0-3); EOS % 0 % (0-3); HEMATOCRIT 42.6 % (39.0-53.0); HEMOGLOBIN 14.1 g/dL (13.0-17.5); LYMPH # 1.6 x10^3/uL (1.0-4.8); LYMPH % 15 % (24-48); MEAN CORPUSCULAR HEMOGLOBIN 29 pg (25-35); MEAN CORPUSCULAR HGB CONC 33 g/dL (31-37); MEAN CORPUSCULAR VOLUME 89 fL (79-100); MONO # 0.7 x10^3/uL (0.0-1.1); MONO % 7 % (0-9); NEUT % 77 % (31-73); PLATELET COUNT 137 x10^3/uL (140-400); RED CELL DISTRIBUTION WIDTH 13.3 % (11.5-14.5); WHITE BLOOD COUNT 10.3 x10^3/uL (4.0-11.0)
[2021-10-28 05:40] LABS: ALBUMIN 2.8 g/dL (3.4-5.0); ALBUMIN/GLOBULIN RATIO 1.3 (1.0-1.7); CREATININE 0.9 mg/dL (0.7-1.3); GFR 82.5; POTASSIUM 4.4 mmol/L (3.5-5.1); TOTAL BILIRUBIN 1.8 mg/dL (0.2-1.0)
--- NOTE | 2021-10-28 06:39 | NUR ---
Patient pulled 2nd IV out since admit.
[2021-10-28 07:00] VITALS: BP 144/66
--- NOTE | 2021-10-28 09:07 | PDOC2 ---
NEUROLOGY CONSULT Date of Service DOS: DATE: 10/28/21 TIME: 08:58 Reason for Consult Reason for Consult: Altered mental status Referring Physician Referring Physician: Dr. Canales Source Source: Chart review, Patient History of Present Illness History of Present Illness The patient is a 76-year-old right-handed male resident of [facility] who had decreased level of consciousness yesterday. He has a diagnosis of Alzheimer's disease. I last saw him in 2012 when he was just getting into dementia. He had a negative brain MRI and lab work then. 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 Patient has been in the retirement for 2 years according to their intake sheet. There is no listed history of stroke, seizure, or head injury. Past Medical History Cardiovascular: AFIB, HTN Pulmonary: COPD, Other (Obstructive sleep apnea) CENTRAL NERVOUS SYSTEM: Dementia (Alzheimer's) GI: GERD Psych: Depression Renal/: Acute renal failure, Benign prostatic enlarg. 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 Current Medications Current Medications Current Medications Ondansetron HCl (Zofran) 4 mg PRN Q8HRS PRN IVP NAUSEA/VOMITING; Start 10/27/21 at 19:15; Stop 10/28/21 at 19:14 Morphine Sulfate (Morphine Sulfate) 2 mg PRN Q2HR PRN IVP PAIN; Start 10/27/21 at 19:15; Stop 10/28/21 at 19:14 Acetaminophen (Tylenol) 650 mg PRN Q4HRS PRN PO FEVER > 100.3'F; Start 10/27/21 at 19:15; Stop 10/28/21 at 19:14 Active Scripts Active Potassium Chloride (Potassium Chloride) 20 Meq Tablet.er 20 Meq PO DAILY 7 Days Aricept (Donepezil Hcl) 10 Mg Tablet 10 Mg PO DAILY 30 Days Memantine HCl 10 Mg Tablet 10 Mg PO BID 30 Days Losartan Potassium 50 Mg Tablet 100 Mg PO DAILY 30 Days Reported Magnesium (Magnesium Oxide) 500 Mg Capsule 1 Cap PO BID 30 Days Escitalopram Oxalate 20 Mg Tablet 1 Tab PO DAILY Amlodipine Besylate 5 Mg Tablet 5 Mg PO DAILY Amiodarone Hcl 200 Mg Tablet 1 Tab PO DAILY Crestor (Rosuvastatin Calcium) 5 Mg Tablet 2 Tab PO DAILY Flonase Allergy Relief (Fluticasone Propionate) 9.9 Ml [place].susp 2 Sprays NS DAILY Vitamin D3 (Cholecalciferol (Vitamin D3)) 1,000 Unit Tablet 2 Tab PO QEVNG Fish Oil 1,000 Mg Capsule ([place]-3 Fatty Acids/Fish Oil) 1 Each Capsule 1 Each PO QEVNG Aspirin 81 Mg Tab.chew 81 Mg PO QEVNG Jessica Allergy (Fexofenadine Hcl) 180 Mg Tablet 180 Mg PO QEVNG Prilosec (Omeprazole) 20 Mg Capsule.dr 20 Mg PO HS Allergies Allergies: Coded Allergies: Sulfa (Sulfonamide Antibiotics) (Verified Adverse Reaction, Intermediate, "SHAKES", 03/12/21) meloxicam (Verified Adverse Reaction, Intermediate, "SHAKES", 03/12/21) SIGRID Inhibitors (Verified Adverse Reaction, Mild, COUGH, 02/01/18) ROS Review of System Negative for fever, chills, weight loss, shortness of breath, chest pain, indigestion, hematochezia, melena, and dysuria. Full 14-point review of systems is negative. Physical Exam Physical Examination General: Well-developed, well-nourished white male in no acute distress HEENT: Normocephalic andatraumatic. Tympanic membranes clear.Temporal arteriespulsatile and nontender.Fundoscopic exam unremarkable Neck: Supple without bruit, no meningismus Musculoskeletal: Stability:see neurologic. Gait exam:see neurologic. Tone:see neurologic.Strength:see neurologic. Neurological: Mental Status:orientation, memory, attention span/concentration, language, fund of knowledge: housing assistant is feeding him breakfast, he does not know date or location, names a few objects and follow simple command. Cranial Nerves:Pupils equal and reactive to light, extraocular movements areintact, visual macias are full to confrontation. Facial sensation is normal. There is no facial asymmetry. Vestibulo-ocular reflex is intact. Palate elevates and tongue protrudes in midline. All other cranial related problems are negative except as mentioned before.Reflexes:1+ and symmetric with flexor plantar responses. Bilateral grasp reflexes. Motor:3/5 strength with normal tone and bulk. Coordination:Finger-nose finger and lpey-za-bpgi testing are normal. Rapid alternating movements and fine finger movements are intact. Gait:not tested. Sensory:stocking loss. Vitals VITALS Vital Signs Date Time Temp Pulse Resp B/P (MAP) Pulse Ox O2 Delivery O2 Flow Rate FiO2 10/28/21 07:00 98.5 53 18 144/66 (92) 90 98.5 10/28/21 03:00 Room Air Labs Labs Laboratory Tests Test 10/27/21 14:10 10/27/21 14:18 10/27/21 15:57 10/27/21 16:59 White Blood Count 9.5 x10^3/uL (4.0-11.0) Red Blood Count 5.11 x10^6/uL (4.30-5.70) Hemoglobin 14.9 g/dL (13.0-17.5) Hematocrit 45.0 % (39.0-53.0) Mean Corpuscular Volume 88 fL (79-100) Mean Corpuscular Hemoglobin 29 pg (25-35) Mean Corpuscular Hemoglobin Concent 33 g/dL (31-37) Red Cell Distribution Width 13.4 % (11.5-14.5) Platelet Count 147 x10^3/uL (140-400) Neutrophils (%) (Auto) 84 % (31-73) Lymphocytes (%) (Auto) 11 % (24-48) Monocytes (%) (Auto) 4 % (0-9) Eosinophils (%) (Auto) 0 % (0-3) Basophils (%) (Auto) 1 % (0-3) Neutrophils # (Auto) 8.0 x10^3/uL (1.8-7.7) Lymphocytes # (Auto) 1.0 x10^3/uL (1.0-4.8) Monocytes # (Auto) 0.4 x10^3/uL (0.0-1.1) Eosinophils # (Auto) 0.0 x10^3/uL (0.0-0.7) Basophils # (Auto) 0.1 x10^3/uL (0.0-0.2) Prothrombin Time 14.1 SEC (11.7-14.0) Prothromb Time International Ratio 1.1 (0.8-1.1) Activated Partial Thromboplast Time 23 SEC (24-38) Sodium Level 145 mmol/L (136-145) Potassium Level 4.0 mmol/L (3.5-5.1) Chloride Level 107 mmol/L (98-107) Carbon Dioxide Level 30 mmol/L (21-32) Anion Gap 8 (6-14) Blood Urea Nitrogen 19 mg/dL (8-26) Creatinine 1.1 mg/dL (0.7-1.3) Estimated GFR (Cockcroft-Gault) 65.6 BUN/Creatinine Ratio 17 (6-20) Glucose Level 98 mg/dL (70-99) Lactic Acid Level 1.5 mmol/L (0.4-2.0) Calcium Level 8.2 mg/dL (8.5-10.1) Magnesium Level 2.3 mg/dL (1.8-2.4) Total Bilirubin 1.5 mg/dL (0.2-1.0) Aspartate Amino Transf (AST/SGOT) 23 U/L (15-37) Alanine Aminotransferase (ALT/SGPT) 46 U/L (16-63) Alkaline Phosphatase 69 U/L (46-116) Ammonia 22 mcmol/L (11-34) Troponin I High Sensitivity 15 ng/L (4-75) 14 ng/L (4-75) KW-Xdw-Z-Type Natriuretic Peptide 1601 pg/mL (0-124) Total Protein 5.7 g/dL (6.4-8.2) Albumin 3.2 g/dL (3.4-5.0) Albumin/Globulin Ratio 1.3 (1.0-1.7) Thyroid Stimulating Hormone (TSH) < 0.007 uIU/mL (0.358-3.74) Urine Collection Type U cath Urine Color (Auto) Light yellow Urine Turbidity Clear Urine pH (Auto) 7.0 (<5.0-8.0) Urine Specific Colver 1.010 (1.000-1.030) Urine Protein (Auto) Negative mg/dL (Negative) Urine Glucose (Auto)(UA) Negative mg/dL (Negative) Urine Ketones (Auto) Negative mg/dL (Negative) Urine Blood (Auto) Negative (Negative) Urine Nitrite (Auto) Negative (Negative) Urine Bilirubin (Auto) Negative (Negative) Urine Urobilinogen (Auto) Normal mg/dL (Normal) Urine Leukocyte Esterase (Auto) Negative (Negative) Urine RBC Occ /HPF (0-2) Urine WBC 1-4 /HPF (0-4) Urine Squamous Epithelial Cells Occ /LPF Urine Bacteria 0 /HPF (0-FEW) Urine Opiates Screen Neg (NEG) Urine Methadone Screen Neg (NEG) Urine Barbiturates Neg (NEG) Urine Phencyclidine Screen Neg (NEG) Urine Amphetamine/Methamphetamine Neg (NEG) Urine Benzodiazepines Screen Neg (NEG) Urine Cocaine Screen Neg (NEG) Urine Cannabinoids Screen Neg (NEG) Urine Ethyl Alcohol Neg (NEG) Influenza Type A Antigen Negative (NEGATIVE) Influenza Type B Antigen Negative (NEGATIVE) Test 10/28/21 04:00 White Blood Count 10.3 x10^3/uL (4.0-11.0) Red Blood Count 4.80 x10^6/uL (4.30-5.70) Hemoglobin 14.1 g/dL (13.0-17.5) Hematocrit 42.6 % (39.0-53.0) Mean Corpuscular Volume 89 fL (79-100) Mean Corpuscular Hemoglobin 29 pg (25-35) Mean Corpuscular Hemoglobin Concent 33 g/dL (31-37) Red Cell Distribution Width 13.3 % (11.5-14.5) Platelet Count 137 x10^3/uL (140-400) Neutrophils (%) (Auto) 77 % (31-73) Lymphocytes (%) (Auto) 15 % (24-48) Monocytes (%) (Auto) 7 % (0-9) Eosinophils (%) (Auto) 0 % (0-3) Basophils (%) (Auto) 0 % (0-3) Neutrophils # (Auto) 8.0 x10^3/uL (1.8-7.7) Lymphocytes # (Auto) 1.6 x10^3/uL (1.0-4.8) Monocytes # (Auto) 0.7 x10^3/uL (0.0-1.1) Eosinophils # (Auto) 0.0 x10^3/uL (0.0-0.7) Basophils # (Auto) 0.0 x10^3/uL (0.0-0.2) Sodium Level 142 mmol/L (136-145) Potassium Level 4.4 mmol/L (3.5-5.1) Chloride Level 106 mmol/L (98-107) Carbon Dioxide Level 28 mmol/L (21-32) Anion Gap 8 (6-14) Blood Urea Nitrogen 20 mg/dL (8-26) Creatinine 0.9 mg/dL (0.7-1.3) Estimated GFR (Cockcroft-Gault) 82.5 BUN/Creatinine Ratio 22 (6-20) Glucose Level 81 mg/dL (70-99) Calcium Level 8.0 mg/dL (8.5-10.1) Total Bilirubin 1.8 mg/dL (0.2-1.0) Aspartate Amino Transf (AST/SGOT) 17 U/L (15-37) Alanine Aminotransferase (ALT/SGPT) 40 U/L (16-63) Alkaline Phosphatase 59 U/L (46-116) Troponin I High Sensitivity 11 ng/L (4-75) Total Protein 5.0 g/dL (6.4-8.2) Albumin 2.8 g/dL (3.4-5.0) Albumin/Globulin Ratio 1.3 (1.0-1.7) Laboratory Tests Test 10/27/21 14:10 10/27/21 14:18 10/27/21 15:57 10/27/21 16:59 White Blood Count 9.5 x10^3/uL (4.0-11.0) Red Blood Count 5.11 x10^6/uL (4.30-5.70) Hemoglobin 14.9 g/dL (13.0-17.5) Hematocrit 45.0 % (39.0-53.0) Mean Corpuscular Volume 88 fL (79-100) Mean Corpuscular Hemoglobin 29 pg (25-35) Mean Corpuscular Hemoglobin Concent 33 g/dL (31-37) Red Cell Distribution Width 13.4 % (11.5-14.5) Platelet Count 147 x10^3/uL (140-400) Neutrophils (%) (Auto) 84 % (31-73) Lymphocytes (%) (Auto) 11 % (24-48) Monocytes (%) (Auto) 4 % (0-9) Eosinophils (%) (Auto) 0 % (0-3) Basophils (%) (Auto) 1 % (0-3) Neutrophils # (Auto) 8.0 x10^3/uL (1.8-7.7) Lymphocytes # (Auto) 1.0 x10^3/uL (1.0-4.8) Monocytes # (Auto) 0.4 x10^3/uL (0.0-1.1) Eosinophils # (Auto) 0.0 x10^3/uL (0.0-0.7) Basophils # (Auto) 0.1 x10^3/uL (0.0-0.2) Prothrombin Time 14.1 SEC (11.7-14.0) Prothromb Time International Ratio 1.1 (0.8-1.1) Activated Partial Thromboplast Time 23 SEC (24-38) Sodium Level 145 mmol/L (136-145) Potassium Level 4.0 mmol/L (3.5-5.1) Chloride Level 107 mmol/L (98-107) Carbon Dioxide Level 30 mmol/L (21-32) Anion Gap 8 (6-14) Blood Urea Nitrogen 19 mg/dL (8-26) Creatinine 1.1 mg/dL (0.7-1.3) Estimated GFR (Cockcroft-Gault) 65.6 BUN/Creatinine Ratio 17 (6-20) Glucose Level 98 mg/dL (70-99) Lactic Acid Level 1.5 mmol/L (0.4-2.0) Calcium Level 8.2 mg/dL (8.5-10.1) Magnesium Level 2.3 mg/dL (1.8-2.4) Total Bilirubin 1.5 mg/dL (0.2-1.0) Aspartate Amino Transf (AST/SGOT) 23 U/L (15-37) Alanine Aminotransferase (ALT/SGPT) 46 U/L (16-63) Alkaline Phosphatase 69 U/L (46-116) Ammonia 22 mcmol/L (11-34) Troponin I High Sensitivity 15 ng/L (4-75) 14 ng/L (4-75) RJ-Bye-D-Type Natriuretic Peptide 1601 pg/mL (0-124) Total Protein 5.7 g/dL (6.4-8.2) Albumin 3.2 g/dL (3.4-5.0) Albumin/Globulin Ratio 1.3 (1.0-1.7) Thyroid Stimulating Hormone (TSH) < 0.007 uIU/mL (0.358-3.74) Urine Collection Type U cath Urine Color (Auto) Light yellow Urine Turbidity Clear Urine pH (Auto) 7.0 (<5.0-8.0) Urine Specific Colver 1.010 (1.000-1.030) Urine Protein (Auto) Negative mg/dL (Negative) Urine Glucose (Auto)(UA) Negative mg/dL (Negative) Urine Ketones (Auto) Negative mg/dL (Negative) Urine Blood (Auto) Negative (Negative) Urine Nitrite (Auto) Negative (Negative) Urine Bilirubin (Auto) Negative (Negative) Urine Urobilinogen (Auto) Normal mg/dL (Normal) Urine Leukocyte Esterase (Auto) Negative (Negative) Urine RBC Occ /HPF (0-2) Urine WBC 1-4 /HPF (0-4) Urine Squamous Epithelial Cells Occ /LPF Urine Bacteria 0 /HPF (0-FEW) Urine Opiates Screen Neg (NEG) Urine Methadone Screen Neg (NEG) Urine Barbiturates Neg (NEG) Urine Phencyclidine Screen Neg (NEG) Urine Amphetamine/Methamphetamine Neg (NEG) Urine Benzodiazepines Screen Neg (NEG) Urine Cocaine Screen Neg (NEG) Urine Cannabinoids Screen Neg (NEG) Urine Ethyl Alcohol Neg (NEG) Influenza Type A Antigen Negative (NEGATIVE) Influenza Type B Antigen Negative (NEGATIVE) Test 10/28/21 04:00 White Blood Count 10.3 x10^3/uL (4.0-11.0) Red Blood Count 4.80 x10^6/uL (4.30-5.70) Hemoglobin 14.1 g/dL (13.0-17.5) Hematocrit 42.6 % (39.0-53.0) Mean Corpuscular Volume 89 fL (79-100) Mean Corpuscular Hemoglobin 29 pg (25-35) Mean Corpuscular Hemoglobin Concent 33 g/dL (31-37) Red Cell Distribution Width 13.3 % (11.5-14.5) Platelet Count 137 x10^3/uL (140-400) Neutrophils (%) (Auto) 77 % (31-73) Lymphocytes (%) (Auto) 15 % (24-48) Monocytes (%) (Auto) 7 % (0-9) Eosinophils (%) (Auto) 0 % (0-3) Basophils (%) (Auto) 0 % (0-3) Neutrophils # (Auto) 8.0 x10^3/uL (1.8-7.7) Lymphocytes # (Auto) 1.6 x10^3/uL (1.0-4.8) Monocytes # (Auto) 0.7 x10^3/uL (0.0-1.1) Eosinophils # (Auto) 0.0 x10^3/uL (0.0-0.7) Basophils # (Auto) 0.0 x10^3/uL (0.0-0.2) Sodium Level 142 mmol/L (136-145) Potassium Level 4.4 mmol/L (3.5-5.1) Chloride Level 106 mmol/L (98-107) Carbon Dioxide Level 28 mmol/L (21-32) Anion Gap 8 (6-14) Blood Urea Nitrogen 20 mg/dL (8-26) Creatinine 0.9 mg/dL (0.7-1.3) Estimated GFR (Cockcroft-Gault) 82.5 BUN/Creatinine Ratio 22 (6-20) Glucose Level 81 mg/dL (70-99) Calcium Level 8.0 mg/dL (8.5-10.1) Total Bilirubin 1.8 mg/dL (0.2-1.0) Aspartate Amino Transf (AST/SGOT) 17 U/L (15-37) Alanine Aminotransferase (ALT/SGPT) 40 U/L (16-63) Alkaline Phosphatase 59 U/L (46-116) Troponin I High Sensitivity 11 ng/L (4-75) Total Protein 5.0 g/dL (6.4-8.2) Albumin 2.8 g/dL (3.4-5.0) Albumin/Globulin Ratio 1.3 (1.0-1.7) Images Images CT HEAD/BRAIN WO CLINICAL HISTORY: Altered mental status. TECHNIQUE: Serial axial images without IV contrast were obtained from the vertex to the foramen magnum. CT Dose Reduction Employed: One or more of the following individualized dose reduction techniques were utilized for this examination: 1. Automated exposure control 2. Adjustment of the mA and/or kV according to patient size 3. Use of iterative reconstruction technique. COMPARISON: CT head and C-spine 03/10/2021 FINDINGS: Acute Change: No evidence of an acute infarct or other acute parenchymal process. Hemorrhage: No evidence of acute intracranial hemorrhage. Mass Lesion/Mass Effect: No evidence of intracranial mass or extraaxial fluid collection. No significant mass effect. Chronic Change: Confluent and patchy hypoattenuation in the supratentorial white matter, nonspecific but likely represents moderate to marked microvascular ischemia. Atherosclerotic calcification of the intracranial portion of the bilateral internal carotid arteries. Parenchyma: Moderate generalized volume loss. Ventricles: Ventricular enlargement concordant with degree of parenchymal volume loss. Paranasal Sinuses and Skull Base: Visualized paranasal sinuses clear. Visualized skull base and soft tissues unremarkable. IMPRESSION: No evidence of acute intracranial abnormality or significant interval change. Assessment/Plan Assessment/Plan Impression: Demented retirement patient who presented with decreased level of consciousness yesterday morning. He is bright and alert now. He is severely demented. I find no evidence of seizure, stroke, or other intracranial abnormality. He has a nonfocal exam. He notably has a history of sleep apnea, perhaps he just got into trouble with that. I doubt that he can keep the CPAP mask on, though. I suppose he could have had a seizure, but there is no evidence of lingual trauma. Evidence of neuropathy Recommendations: No additional neurological studies needed Empiric anticonvulsants would not be helpful. Risks outweigh benefits Electroencephalogram would not be helpful. Okay to return to retirement today. Thank you for letting me help with the patient's care. JOSE E READ MD Oct 28, 2021 09:07
[2021-10-28] MEDS ORDERED: LOSARTAN POTASSIUM 50 MG TABLET. PO SCH (10:00)
[2021-10-28] MEDS ORDERED: DONEPEZIL HCL 10 MG TABLET. PO SCH (10:00)
[2021-10-28] MEDS ORDERED: MEMANTINE 10 MG TABLET. PO SCH (10:00)
[2021-10-28] MEDS ORDERED: POTASSIUM CHLORIDE 20 MEQ TABLET.ER. PO SCH (10:00)
[2021-10-28] MEDS ORDERED: MAGNESIUM OXIDE 400 MG TABLET PO SCH (10:00)
[2021-10-28] MEDS ORDERED: AMIODARONE HCL 200 MG TABLET. PO SCH (10:00)
[2021-10-28] MEDS ORDERED: FLUTICASONE 50MCG/NASAL SPRAY 16GM BOTTLE. NS SCH (10:00)
[2021-10-28 11:00] VITALS: BP 130/62
[2021-10-28] MEDS ORDERED: PANTOPRAZOLE 40 MG TABLET.DR. PO SCH (11:30)
--- NOTE | 2021-10-28 12:47 | NUR ---
SS following for discharge planning. SS reviewed pt chart and discussed with pt RN. Pt is currently on room air. Pt is LTC resident from [facility], ; fax [phone]. Discharge orders received and sent to [facility] with clinical. Pt will discharge today and return to [facility]. Facility to arrange stretcher transportation. Pt and pt's RN notified.
--- NOTE | 2021-10-28 14:06 | HP ---
DATE OF SERVICE: 10/28/2021 ADMIT DATE: 10/27/2021 CHIEF COMPLAINT AND HISTORY OF PRESENT ILLNESS: This 75-year-old care home residence due to dementia as well as other problems, was found to have an altered mental status at the care home compared to his usual and was sent to the ER where he was admitted for the same. He was much more drowsy, less responsive than usual. The patient is unable to provide much in the way of history, but states that he feels fine. PAST MEDICAL HISTORY: Remarkable for atrial fibrillation, dementia, depression, GERD, hypertension. He has had a prior tonsillectomy and ear tumor removed. MEDICATIONS: Brought with the patient, listed on the computer have been addressed. ALLERGIES: HE IS ALLERGIC TO SIGRID INHIBITORS AND SULFA ANTIBIOTICS WELL MELOXICAM. SOCIAL HISTORY: He is a lifetime nonsmoker, does not drink or use drugs. FAMILY HISTORY: Noncontributory. REVIEW OF SYSTEMS: Unobtainable due to his dementia. PHYSICAL EXAMINATION: GENERAL: He is a well-developed, well-nourished male in no acute distress. VITAL SIGNS: Stable. He is afebrile. HEAD, EYES, EARS, NOSE AND THROAT: Unremarkable. NECK: Supple without adenopathy or thyromegaly. CHEST: Clear to auscultation and percussion. HEART: Regular rate and rhythm without S3, S4 or murmur. ABDOMEN: Soft, nontender, without hepatosplenomegaly or mass. EXTREMITIES: Without cyanosis, clubbing or edema. NEUROLOGIC: Nonfocal. LABORATORY DATA: CT head shows no evidence of acute abnormality. Initial labs are essentially unrewarding. ASSESSMENT: Altered mental status of uncertain etiology with multiple other problems listed above. PLAN: We will observe at least overnight with Neurology consultation to follow. ISSAC/GRUPO ALEGRIA: Syed TID: [id number]
[2021-10-28 15:00] VITALS: BP 117/62
[2021-10-28] MEDS ORDERED: ASPIRIN CHEWABLE 81 MG TABLET. PO SCH (18:00)
[2021-10-28] MEDS ORDERED: CHOLECALCIFEROL (VITAMIN D3) 1,000 UNIT TABLET PO SCH (18:00)
[2021-10-28] MEDS ORDERED: CETIRIZINE HCL 10 MG TABLET. PO SCH (18:00)
[2021-10-28] MEDS ORDERED: ATORVASTATIN CALCIUM 40 MG TABLET. PO SCH (21:00)
--- NOTE | 2021-10-29 03:36 | DS ---
DATE OF DISCHARGE: 10/28/2021 PRIMARY DIAGNOSES: Altered mental status and drowsiness of uncertain etiology. ADDITIONAL DIAGNOSES: Dementia; AFib, on Eliquis; hypertension. CHIEF COMPLAINT AND HISTORY OF PRESENT ILLNESS: This is a 76-year-old halfway resident, admitted with altered mental status at the halfway. Initial laboratory and CT head evaluation in the Emergency Room was unrewarding. SUMMARY OF STAY: The patient was admitted. He seems to be at his baseline on the day of discharge. Neuro saw him and did not recommend any further workup, feeling only they were seeing dementia changes and he was sent back to the halfway. DISPOSITION: The patient is discharged back to the halfway. Please see orders regarding diet, medication, activity, etc. We will continue to follow him there. ALVINA/ESSIE DR: Syed TID: [id number]
[2021-10-29] MEDS ORDERED: CITALOPRAM 20 MG TABLET. PO SCH (09:00)
== END 2021-10-28 15:58 | DRG 71 ==
LOC: ER 13:38 → ED HOLD 16:16 → 5 NORTH 16:20
PROVIDERS: ADMIT Family Medicine; ATTEND Family Medicine
DX: G93.41 Metabolic encephalopathy (principal); E44.1 Mild protein-calorie malnutrition; E03.9 Hypothyroidism, unspecified; F02.80 Dementia in other diseases classified elsewhere, unspecified severity, without behavioral disturbance, psychotic disturbance, mood disturbance, and anxiety; G30.9 Alzheimer's disease, unspecified; G62.9 Polyneuropathy, unspecified; F32.A Depression, unspecified; G47.33 Obstructive sleep apnea (adult) (pediatric); K21.9 Gastro-esophageal reflux disease without esophagitis; I10 Essential (primary) hypertension; I48.91 Unspecified atrial fibrillation; J44.9 Chronic obstructive pulmonary disease, unspecified; Z79.01 Long term (current) use of anticoagulants; Z90.49 Acquired absence of other specified parts of digestive tract; Z88.2 Allergy status to sulfonamides; Z88.8 Allergy status to other drugs, medicaments and biological substances; Z91.041 Radiographic dye allergy status
CPT/HCPCS: 36415; 70450; 71045; 80053; 80307; 81001; 82140; 83605; 83735; 83880; 84443; 84484; 85025; 85610; 85730; 87040; 87428; 93005; 99285-25; G0378

== ENCOUNTER 2021-12-08 14:46 | Inpatient (IN) | payer MEDICARE ==
[~2021-12-08] VITALS: Ht 195.6 cm; Wt 99.5 kg
--- NOTE | 2021-12-08 15:36 | RAD ---
XR CHEST 1V History: Chest pain Comparison: 10/27/2021 Technique: Portable AP radiograph of the chest. Findings: There is new left lower lobe airspace consolidation. No significant effusion. No pneumothorax. Stable heart size with cephalized and indistinct pulmonary vasculature. Osseous structures and soft tissues are unremarkable. Impression: 1. Left lower lobe airspace consolidation may represent infection, aspiration or edema. 2. Diffuse prominence of the pulmonary vasculature consistent with congestion or edema. Electronically signed by: Malik Holman MD (12/08/2021 3:34 PM) [id number]
[2021-12-08 15:58] LABS: BASO # 0.1 x10^3/uL (0.0-0.2); BASO % 1 % (0-3); EOS % 0 % (0-3); HEMATOCRIT 46.8 % (39.0-53.0); HEMOGLOBIN 15.8 g/dL (13.0-17.5); LYMPH # 1.1 x10^3/uL (1.0-4.8); LYMPH % 9 % (24-48); MEAN CORPUSCULAR HEMOGLOBIN 30 pg (25-35); MEAN CORPUSCULAR HGB CONC 34 g/dL (31-37); MEAN CORPUSCULAR VOLUME 89 fL (79-100); MONO # 1.1 x10^3/uL (0.0-1.1); MONO % 9 % (0-9); NEUT # 10.2 x10^3/uL (1.8-7.7); NEUT % 82 % (31-73); PLATELET COUNT 123 x10^3/uL (140-400); RED BLOOD COUNT 5.27 x10^6/uL (4.30-5.70); RED CELL DISTRIBUTION WIDTH 14.9 % (11.5-14.5); WHITE BLOOD COUNT 12.5 x10^3/uL (4.0-11.0)
--- NOTE | 2021-12-08 15:58 | EKG ---
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
[2021-12-08 16:10] LABS: PROTHROMBIN TIME PATIENT 14.9 SEC (11.7-14.0)
--- NOTE | 2021-12-08 16:12 | PHYS DOC ---
Past Medical History Past Medical History: A-Fib, Dementia, Depression, GERD, Hypertension, Other Additional Past Medical Histor: ALZHEIMER'S, metabolic encephalopathy Past Surgical History: Appendectomy, Tonsillectomy, Other Additional Past Surgical Histo: ear tumor removed Smoking Status: Never Smoker Alcohol Use: None Drug Use: None General Adult EDM: Chief Complaint: CHEST PAIN HPI: HPI: 76-year-old male, past medical history A. fib, COPD, Alzheimer's dementia, GERD, hypertension, recently discharged from a rehab center, presents with 3 days of weakness and left-sided chest pain. No fever, cough, diaphoresis or shortness of breath. Review of Systems: Review of Systems: Constitutional: Denies fever or chills. [] Eyes: Denies change in visual acuity. [] HENT: Denies nasal congestion or sore throat. [] Respiratory: Denies cough or shortness of breath. [] Cardiovascular: Denies chest pain or edema. [] GI: Denies abdominal pain, nausea, vomiting, bloody stools or diarrhea. [] : Denies dysuria. [] Musculoskeletal: Denies back pain or joint pain. [] Integument: Denies rash. [] Neurologic: Denies headache, focal weakness or sensory changes. [] Endocrine: Denies polyuria or polydipsia. [] Lymphatic: Denies swollen glands. [] Psychiatric: Denies depression or anxiety. [] Heart Score: C/O Chest Pain: Yes HEART Score for Chest Pain: HEART Score for Chest Pain Response (Comments) Value History Moderately Suspicious 1 ECG Normal 0 Age > 65 2 Risk Factors 1 or 2 Risk Factors 1 Troponin < Normal Limit 0 Total 4 Risk Factors: Risk Factors: DM, Current or recent (<one month) smoker, HTN, HLP, family history of CAD, obesity. Risk Scores: Score 0 - 3: 2.5% MACE over next 6 weeks - Discharge Home Score 4 - 6: 20.3% MACE over next 6 weeks - Admit for Clinical Observation Score 7 - 10: 72.7% MACE over next 6 weeks - Early Invasive Strategies Current Medications: Current Medications Medications (Trade) Dose Ordered Sig/Luis Armando Start Time Stop Time Status Last Admin Dose Admin Ceftriaxone Sodium (Rocephin) 1 gm 1X ONCE 12/08/21 16:15 12/08/21 16:16 Doxycycline Hyclate 100 mg/ Dextrose 100 ml @ 50 mls/hr 1X ONCE 12/08/21 16:30 12/08/21 18:29 Allergies: Allergies: Allergies Coded Allergies Type Severity Reaction Last Updated Verified Sulfa (Sulfonamide Antibiotics) Adverse Reaction Intermediate "SHAKES" 03/12/21 Yes meloxicam Adverse Reaction Intermediate "SHAKES" 03/12/21 Yes SIGRID Inhibitors Adverse Reaction Mild COUGH 02/01/18 Yes Physical Exam: PE: Constitutional: elderly male, tired appearing, well nourished, no acute distress, non-toxic appearance. [] HENT: Normocephalic, atraumatic, oropharynx moist, no oral exudates, nose normal. [] Eyes: PERRLA, EOMI, conjunctiva normal, no discharge. [] Neck: Normal range of motion, no tenderness, supple, no stridor. [] Cardiovascular:Heart rate regular rhythm, no murmur [] Lungs & Thorax: on 2L NC, Bilateral breath sounds clear to auscultation [] Abdomen: Bowel sounds normal, soft, no tenderness, no masses, no pulsatile masses. [] Skin: Warm, dry, no erythema, no rash. [] Back: No tenderness, no CVA tenderness. [] Extremities: No tenderness, no cyanosis, no clubbing, ROM intact, no edema. [] Neurologic: Alert and oriented X 1, normal motor function, normal sensory function, no focal deficits noted. [] Current Patient Data: Labs: Laboratory Tests Test 12/08/21 15:47 White Blood Count 12.5 x10^3/uL (4.0-11.0) H Red Blood Count 5.27 x10^6/uL (4.30-5.70) Hemoglobin 15.8 g/dL (13.0-17.5) Hematocrit 46.8 % (39.0-53.0) Mean Corpuscular Volume 89 fL (79-100) Mean Corpuscular Hemoglobin 30 pg (25-35) Mean Corpuscular Hemoglobin Concent 34 g/dL (31-37) Red Cell Distribution Width 14.9 % (11.5-14.5) H Platelet Count 123 x10^3/uL (140-400) L Neutrophils (%) (Auto) 82 % (31-73) H Lymphocytes (%) (Auto) 9 % (24-48) L Monocytes (%) (Auto) 9 % (0-9) Eosinophils (%) (Auto) 0 % (0-3) Basophils (%) (Auto) 1 % (0-3) Neutrophils # (Auto) 10.2 x10^3/uL (1.8-7.7) H Lymphocytes # (Auto) 1.1 x10^3/uL (1.0-4.8) Monocytes # (Auto) 1.1 x10^3/uL (0.0-1.1) Eosinophils # (Auto) 0.0 x10^3/uL (0.0-0.7) Basophils # (Auto) 0.1 x10^3/uL (0.0-0.2) Laboratory Tests 12/08/21 15:47 Vital Signs: Vital Signs Date Time Temp Pulse Resp B/P (MAP) Pulse Ox O2 Delivery O2 Flow Rate FiO2 12/08/21 14:50 97.7 66 22 144/70 (94) 96 Room Air 97.7 EKG: EKG: [] Radiology/Procedures: Radiology/Procedures: [] Course & Med Decision Making: Course & Med Decision Making Pertinent Labs and Imaging studies reviewed. (See chart for details) Additional Social History: PMD from non-affiliated facility. Patient Lives at home. Family History: Non-pertinent to today's complaint. Nursing Notes Reviewed Previous Medical Records requested via [facility] Web: Reviewed by me. EMERGENT LABS AND DIAGNOSTIC STUDIES: Results were reviewed and interpreted by me as below 12-lead EKG Interpretation by Keisha Cid MD: Normal Sinus Rhythm at 66 beats per minute Right axis Normal intervals No ectopy No PVC No other acute ST or T wave abnormalities Overall impression is normal EKG REASON: chest pain PROCEDURE: PORTABLE CHEST 1V Impression: 1. Left lower lobe airspace consolidation may represent infection, aspiration or edema. 2. Diffuse prominence of the pulmonary vasculature consistent with congestion or edema. EMERGENCY DEPARTMENT COURSE/ MEDICAL DECISION MAKING: The patient was placed on a air sampling and monitoring, continuous pulse oximetry and was given supplemental oxygen. I examined the patient, evaluated and addressed patient's chief complaint. Findings suspicion of a left lower lobe infiltrate. Status post ceftriaxone and doxycycline for pneumonia. Toradol for defervescence. Plan for admission to telemetry for left lower lobe pneumonia. After evaluation, I believe the patient is at risk for decompensation and will require admission. However, patients abnormal vital signs/labs are not consistent with sepsis, and the patient does not meet the criteria for sepsis at this time. I discussed the patient's case with Dr. Sow, who expressed understanding and agreed to admit the patient. I suspect the patient will be hospitalized for at least 2 midnights. DIAGNOSTIC IMPRESSION: 1. Pneumonia 2. weakness 3. left chest pain DISPOSITION: Disposition: Admit to tele under the service of Dr. Sow Condition: Guarded Dragon Disclaimer: Mark Disclaimer: This electronic medical record was generated, in whole or in part, using a voice recognition dictation system. Departure Departure Impression: Primary Impression: Chest pain Additional Impressions: Left lower lobe pneumonia Weakness Altered mental status Disposition: ADMITTED INPATIENT Condition: GUARDED Referrals: PEDRO VANCE MD (PCP) NAOMY CID MD December 08, 2021 16:12
[2021-12-08] MEDS ORDERED: cefTRIAXone IV Push 1 GM VIAL. IVP ONE (16:15)
[2021-12-08 16:19] LABS: CALCIUM 8.4 mg/dL (8.5-10.1); CREATININE 1.1 mg/dL (0.7-1.3); GFR 65.4; POTASSIUM 4.7 mmol/L (3.5-5.1)
[2021-12-08] MEDS ORDERED: DOXYCYCLINE HYCLATE 100 MG in IV DEXTROSE 5% 100ML 100 ML IV ONE (16:30)
[2021-12-08 16:33] LABS: ALBUMIN 3.1 g/dL (3.4-5.0); ALBUMIN/GLOBULIN RATIO 1.1 (1.0-1.7); DIRECT BILIRUBIN 0.8 mg/dL (0.0-0.2); TOTAL BILIRUBIN 2.2 mg/dL (0.2-1.0)
[2021-12-08 16:39] LABS: BACTERIA,URINE FEW /HPF (0-FEW)
[2021-12-08] MEDS ORDERED: KETOROLAC 30 MG/ML VIAL. IVP ONE (17:00)
[2021-12-08 17:45] VITALS: BP 119/63
[2021-12-08] MEDS: CHOLECALCIFEROL (VITAMIN D3) 1,000 UNIT TABLET PO SCH (18:00)
[2021-12-08] MEDS: ASPIRIN CHEWABLE 81 MG TABLET. PO SCH (18:00)
[2021-12-08] MEDS: CETIRIZINE HCL 10 MG TABLET. PO SCH (18:00)
--- NOTE | 2021-12-08 18:49 | HP ---
DATE OF SERVICE: 12/08/2021 ADMIT DATE: 12/08/2021 CHIEF COMPLAINT: Shortness of breath, cough, chest discomfort with inspiration. HISTORY OF PRESENT ILLNESS: The patient is a pleasant 76-year-old male who has dementia. He lives at home with his . He also has known COPD. He was recently in a [facility] after an admission for COPD and UTI. Now, he is weak. He has got chest discomfort and a cough. We did some imaging. He has got left-sided pneumonia. I discussed the case with the ER physician. We are going to admit the patient, consult Pulmonary Medicine, and give the patient IV antibiotics, breathing treatments, oxygen and steroids. PAST MEDICAL HISTORY: COPD, dementia, polypharmacy, allergic rhinitis, arrhythmias, hyperlipidemia, hypertension, and GERD. ALLERGIES: SIGRID INHIBITORS, SULFA AND MELOXICAM. FAMILY HISTORY: Diabetes. SOCIAL HISTORY: He is retired. He does not drink, smoke or take drugs. 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 MEDICATIONS: Reviewed. Please refer to the MRAD. REVIEW OF SYSTEMS: Unable to obtain. The patient is too confused, but he clearly does have some chest discomfort and a cough. PHYSICAL EXAMINATION: VITALS: Within normal limits and are stable. GENERAL: He is pleasantly confused. HEENT: Normal cephalic atraumatic, external auditory canals are patent. EYES: Extraocular muscles are intact, pupils are equally round and reactive to light and accommodation. MUSCULOSKELETAL: Well developed, well nourished, good range of motion. ENDOCRINE: No thyromegaly was palpated. LYMPHATICS: No cervical chain or axillary nodes were noted. HEMATOPOIETIC: No bruising. NECK: Supple, no JVD, no thyromegaly was noted. LUNGS: He has left crackles. HEART: RRR, S1, S2 present. Peripheral pulses intact, no obvious murmurs were noted. ABDOMEN: Soft, nontender. Positive bowel sounds no organomegaly, normal bowel sounds. EXTREMITIES: Without any cyanosis, clubbing, or edema. Pedal pulses intact, Homans sign is negative. NEUROLOGIC: He is pleasantly confused. PSYCHIATRIC: He is pleasantly confused. SKIN: No ulcerations or rashes, good skin turgor, no jaundice. VASCULAR: Good capillary refill, neurovascular bundle appears to be intact. DIAGNOSTIC DATA: White count 12. Electrolytes are normal. BNP 20,607. INR is 1.2. Urinalysis negative. COVID testing negative. Chest x-ray shows left-sided pneumonia. ASSESSMENT AND PLAN: Pneumonia. The patient will be admitted. We will start IV antibiotics, breathing treatments, oxygen, steroids, home meds, deep venous thrombosis prophylaxis. Full code. Consult Pulmonary. Consult Frame Trimmer. DRU/FAY DR: Kadie TID: [id number]
[2021-12-08 19:00] VITALS: BP 121/57
[2021-12-08] MEDS: IPRATRPIUM/ALBUTEROL 0.5/2.5MG 3 ML NEBU. NEB SCH (20:16)
[2021-12-08] MEDS: PANTOPRAZOLE 40 MG TABLET.DR. PO SCH (21:12)
[2021-12-08] MEDS: MAGNESIUM OXIDE 400 MG TABLET PO SCH (21:12)
[2021-12-08] MEDS: MEMANTINE 10 MG TABLET. PO SCH (21:12)
[2021-12-08 23:00] VITALS: BP 137/67
[2021-12-09 03:00] VITALS: BP 137/70
[2021-12-09 07:00] VITALS: BP 143/71
[2021-12-09] MEDS: IPRATRPIUM/ALBUTEROL 0.5/2.5MG 3 ML NEBU. NEB SCH ×4 (07:17→20:58)
[2021-12-09] MEDS: FLUTICASONE 50MCG/NASAL SPRAY 16GM BOTTLE. NS SCH (09:00)
[2021-12-09] MEDS ORDERED: methylPREDNISolone SOD SUCC PF 40 MG/ML VIAL. IV SCH (09:00)
[2021-12-09] MEDS: MAGNESIUM OXIDE 400 MG TABLET PO SCH ×2 (09:00→20:05)
[2021-12-09] MEDS ORDERED: DOXYCYCLINE HYCLATE 100 MG in IV DEXTROSE 5% 100ML 100 ML IV SCH (09:00)
--- NOTE | 2021-12-09 09:08 | PDOC ---
PULMONARY PROGRESS NOTES DATE: 12/09/21 TIME: 09:07 Vitals Vital Signs Date Time Temp Pulse Resp B/P (MAP) Pulse Ox O2 Delivery O2 Flow Rate FiO2 12/09/21 07:18 96 Nasal Cannula 2.0 12/09/21 07:00 98.3 76 24 143/71 (95) 98.3 Labs Laboratory Tests Test 12/08/21 15:47 12/08/21 16:05 12/08/21 16:21 12/08/21 18:37 White Blood Count 12.5 x10^3/uL (4.0-11.0) Red Blood Count 5.27 x10^6/uL (4.30-5.70) Hemoglobin 15.8 g/dL (13.0-17.5) Hematocrit 46.8 % (39.0-53.0) Mean Corpuscular Volume 89 fL (79-100) Mean Corpuscular Hemoglobin 30 pg (25-35) Mean Corpuscular Hemoglobin Concent 34 g/dL (31-37) Red Cell Distribution Width 14.9 % (11.5-14.5) Platelet Count 123 x10^3/uL (140-400) Neutrophils (%) (Auto) 82 % (31-73) Lymphocytes (%) (Auto) 9 % (24-48) Monocytes (%) (Auto) 9 % (0-9) Eosinophils (%) (Auto) 0 % (0-3) Basophils (%) (Auto) 1 % (0-3) Neutrophils # (Auto) 10.2 x10^3/uL (1.8-7.7) Lymphocytes # (Auto) 1.1 x10^3/uL (1.0-4.8) Monocytes # (Auto) 1.1 x10^3/uL (0.0-1.1) Eosinophils # (Auto) 0.0 x10^3/uL (0.0-0.7) Basophils # (Auto) 0.1 x10^3/uL (0.0-0.2) Prothrombin Time 14.9 SEC (11.7-14.0) Prothromb Time International Ratio 1.2 (0.8-1.1) Sodium Level 141 mmol/L (136-145) Potassium Level 4.7 mmol/L (3.5-5.1) Chloride Level 106 mmol/L (98-107) Carbon Dioxide Level 25 mmol/L (21-32) Anion Gap 10 (6-14) Blood Urea Nitrogen 20 mg/dL (8-26) Creatinine 1.1 mg/dL (0.7-1.3) Estimated GFR (Cockcroft-Gault) 65.4 BUN/Creatinine Ratio 18 (6-20) Glucose Level 114 mg/dL (70-99) Calcium Level 8.4 mg/dL (8.5-10.1) Total Bilirubin 2.2 mg/dL (0.2-1.0) Direct Bilirubin 0.8 mg/dL (0.0-0.2) Aspartate Amino Transf (AST/SGOT) 19 U/L (15-37) Alanine Aminotransferase (ALT/SGPT) 14 U/L (16-63) Alkaline Phosphatase 81 U/L (46-116) Troponin I High Sensitivity 33 ng/L (4-75) 34 ng/L (4-75) UE-Xsa-P-Type Natriuretic Peptide 2607 pg/mL (0-124) Total Protein 6.0 g/dL (6.4-8.2) Albumin 3.1 g/dL (3.4-5.0) Albumin/Globulin Ratio 1.1 (1.0-1.7) SARS-CoV-2 Antigen (Rapid) Negative (NEGATIVE) Urine Collection Type Unknown Urine Color (Auto) Light orange Urine Turbidity Clear Urine pH (Auto) 5.0 (<5.0-8.0) Urine Specific [place] 1.024 (1.000-1.030) Urine Protein (Auto) Negative mg/dL (Negative) Urine Glucose (Auto)(UA) Negative mg/dL (Negative) Urine Ketones (Auto) Negative mg/dL (Negative) Urine Blood (Auto) Small (Negative) Urine Nitrite Negative (Negative) Urine Bilirubin (Auto) Negative (Negative) Urine Urobilinogen (Auto) 3 mg/dL (Normal) Urine Leukocyte Esterase (Auto) Negative (Negative) Urine RBC 1-2 /HPF (0-2) Urine WBC 1-4 /HPF (0-4) Urine Squamous Epithelial Cells Few /LPF Urine Bacteria Few /HPF (0-FEW) Urine Mucus Marked /LPF Test 12/08/21 21:45 Troponin I High Sensitivity 29 ng/L (4-75) Laboratory Tests Test 12/08/21 15:47 12/08/21 16:05 12/08/21 16:21 12/08/21 18:37 White Blood Count 12.5 x10^3/uL (4.0-11.0) Red Blood Count 5.27 x10^6/uL (4.30-5.70) Hemoglobin 15.8 g/dL (13.0-17.5) Hematocrit 46.8 % (39.0-53.0) Mean Corpuscular Volume 89 fL (79-100) Mean Corpuscular Hemoglobin 30 pg (25-35) Mean Corpuscular Hemoglobin Concent 34 g/dL (31-37) Red Cell Distribution Width 14.9 % (11.5-14.5) Platelet Count 123 x10^3/uL (140-400) Neutrophils (%) (Auto) 82 % (31-73) Lymphocytes (%) (Auto) 9 % (24-48) Monocytes (%) (Auto) 9 % (0-9) Eosinophils (%) (Auto) 0 % (0-3) Basophils (%) (Auto) 1 % (0-3) Neutrophils # (Auto) 10.2 x10^3/uL (1.8-7.7) Lymphocytes # (Auto) 1.1 x10^3/uL (1.0-4.8) Monocytes # (Auto) 1.1 x10^3/uL (0.0-1.1) Eosinophils # (Auto) 0.0 x10^3/uL (0.0-0.7) Basophils # (Auto) 0.1 x10^3/uL (0.0-0.2) Prothrombin Time 14.9 SEC (11.7-14.0) Prothromb Time International Ratio 1.2 (0.8-1.1) Sodium Level 141 mmol/L (136-145) Potassium Level 4.7 mmol/L (3.5-5.1) Chloride Level 106 mmol/L (98-107) Carbon Dioxide Level 25 mmol/L (21-32) Anion Gap 10 (6-14) Blood Urea Nitrogen 20 mg/dL (8-26) Creatinine 1.1 mg/dL (0.7-1.3) Estimated GFR (Cockcroft-Gault) 65.4 BUN/Creatinine Ratio 18 (6-20) Glucose Level 114 mg/dL (70-99) Calcium Level 8.4 mg/dL (8.5-10.1) Total Bilirubin 2.2 mg/dL (0.2-1.0) Direct Bilirubin 0.8 mg/dL (0.0-0.2) Aspartate Amino Transf (AST/SGOT) 19 U/L (15-37) Alanine Aminotransferase (ALT/SGPT) 14 U/L (16-63) Alkaline Phosphatase 81 U/L (46-116) Troponin I High Sensitivity 33 ng/L (4-75) 34 ng/L (4-75) TL-Sxk-F-Type Natriuretic Peptide 2607 pg/mL (0-124) Total Protein 6.0 g/dL (6.4-8.2) Albumin 3.1 g/dL (3.4-5.0) Albumin/Globulin Ratio 1.1 (1.0-1.7) SARS-CoV-2 Antigen (Rapid) Negative (NEGATIVE) Urine Collection Type Unknown Urine Color (Auto) Light orange Urine Turbidity Clear Urine pH (Auto) 5.0 (<5.0-8.0) Urine Specific [place] 1.024 (1.000-1.030) Urine Protein (Auto) Negative mg/dL (Negative) Urine Glucose (Auto)(UA) Negative mg/dL (Negative) Urine Ketones (Auto) Negative mg/dL (Negative) Urine Blood (Auto) Small (Negative) Urine Nitrite Negative (Negative) Urine Bilirubin (Auto) Negative (Negative) Urine Urobilinogen (Auto) 3 mg/dL (Normal) Urine Leukocyte Esterase (Auto) Negative (Negative) Urine RBC 1-2 /HPF (0-2) Urine WBC 1-4 /HPF (0-4) Urine Squamous Epithelial Cells Few /LPF Urine Bacteria Few /HPF (0-FEW) Urine Mucus Marked /LPF Test 12/08/21 21:45 Troponin I High Sensitivity 29 ng/L (4-75) Medications Active Scripts Medications Dose Route/Sig Max Daily Dose Days Date Category Magnesium (Magnesium Oxide) 500 Mg Capsule 1 Cap PO BID 30 03/11/21 Reported Escitalopram Oxalate 20 Mg Tablet 1 Tab PO DAILY 03/11/21 Reported Amlodipine Besylate 5 Mg Tablet 5 Mg PO DAILY 03/11/21 Reported Amiodarone Hcl 200 Mg Tablet 1 Tab PO DAILY 03/11/21 Reported Crestor (Rosuvastatin Calcium) 5 Mg Tablet 2 Tab PO DAILY 03/11/21 Reported Potassium Chloride (Potassium Chloride) 20 Meq Tablet.er 20 Meq PO DAILY 7 08/16/18 Rx Flonase Allergy Relief (Fluticasone Propionate) 9.9 Ml Samson.susp 2 Sprays NS DAILY 11/23/17 Reported Vitamin D3 (Cholecalciferol (Vitamin D3)) 1,000 Unit Tablet 2 Tab PO QEVNG 11/23/17 Reported Aricept (Donepezil Hcl) 10 Mg Tablet 10 Mg PO DAILY 30 07/18/17 Rx Memantine HCl 10 Mg Tablet 10 Mg PO BID 30 07/18/17 Rx Losartan Potassium 50 Mg Tablet 100 Mg PO DAILY 30 07/18/17 Rx Fish Oil 1,000 Mg Capsule ([place]-3 Fatty Acids/Fish Oil) 1 Each Capsule 1 Each PO QEVNG 07/14/17 Reported Aspirin 81 Mg Tab.chew 81 Mg PO QEVNG 09/09/15 Reported Jessica Allergy (Fexofenadine Hcl) 180 Mg Tablet 180 Mg PO QEVNG 09/09/15 Reported Prilosec (Omeprazole) 20 Mg Capsule.dr 20 Mg PO HS 09/09/15 Reported Impression . Full note dictated Pneumonia, possible aspiration Patient pulled out IV site several times I recommended Levaquin, noticed that he is on cephalosporin, plus doxycycline, okay by me Hold off on switching to Levaquin Discussed with nurse Discussed with at the bedside Consult speech PAULO CARL MD December 09, 2021 09:08
[2021-12-09] MEDS: DONEPEZIL HCL 10 MG TABLET. PO SCH (10:27)
[2021-12-09] MEDS: CITALOPRAM 20 MG TABLET. PO SCH (10:27)
[2021-12-09] MEDS: MEMANTINE 10 MG TABLET. PO SCH ×2 (10:28→20:05)
[2021-12-09] MEDS: AMIODARONE HCL 200 MG TABLET. PO SCH (10:28)
[2021-12-09] MEDS: LOSARTAN POTASSIUM 50 MG TABLET. PO SCH (10:29)
[2021-12-09] MEDS: POTASSIUM CHLORIDE 20 MEQ TABLET.ER. PO SCH (10:29)
[2021-12-09] MEDS: ATORVASTATIN CALCIUM 40 MG TABLET. PO SCH (10:29)
[2021-12-09] MEDS ORDERED: prednisoLONE 15 MG/5 ML ORAL SOLUTION. PO SCH (10:30)
--- NOTE | 2021-12-09 10:34 | PDOC ---
[employer] PROGRESS NOTE Date of Service DOS: DATE: 12/09/21 TIME: 10:31 Chief Complaint Chief Complaint Bacterial pneumonia, likely gram negative The patient will be admitted. Switch abx to oral given patient will not keep in an IV, breathing treatments, oxygen, steroids, home meds, deep venous thrombosis prophylaxis. Full code. Consult Pulmonary. Consult [employer] Affixer. History of Present Illness History of Present Illness 12/09 Patient evaluated examined at bedside. Resting in bed did say breathing is improving. at bedside as well stating that shortness of breath does look much better than yesterday. Continue antibiotics and steroids. Patient refusing to keep pain and IV we will switch IV meds to orals. Should he clinically worsen will need to likely switch antibiotics back to IV and steroids IV. PT OT ordered. Pulmonary recommendations reviewed. Discussed with bedside RN. Vitals/I&O Vitals/I&O: Vital Signs Date Time Temp Pulse Resp B/P (MAP) Pulse Ox O2 Delivery O2 Flow Rate FiO2 12/09/21 07:18 96 Nasal Cannula 2.0 12/09/21 07:00 98.3 76 24 143/71 (95) 98.3 I & O 12/08/21 12/08/21 12/09/21 15:00 23:00 07:00 Intake Total 100 ml 360 ml Balance 100 ml 360 ml Physical Exam General: Alert, Cooperative Heart: Regular rate, Normal S1, Normal S2 Lungs: Clear Abdomen: Normal bowel sounds, Soft, No tenderness Extremities: No edema, Normal pulses Skin: No significant lesion Labs Labs: Laboratory Tests Test 12/08/21 15:47 12/08/21 16:05 12/08/21 16:21 12/08/21 18:37 White Blood Count 12.5 x10^3/uL (4.0-11.0) Red Blood Count 5.27 x10^6/uL (4.30-5.70) Hemoglobin 15.8 g/dL (13.0-17.5) Hematocrit 46.8 % (39.0-53.0) Mean Corpuscular Volume 89 fL (79-100) Mean Corpuscular Hemoglobin 30 pg (25-35) Mean Corpuscular Hemoglobin Concent 34 g/dL (31-37) Red Cell Distribution Width 14.9 % (11.5-14.5) Platelet Count 123 x10^3/uL (140-400) Neutrophils (%) (Auto) 82 % (31-73) Lymphocytes (%) (Auto) 9 % (24-48) Monocytes (%) (Auto) 9 % (0-9) Eosinophils (%) (Auto) 0 % (0-3) Basophils (%) (Auto) 1 % (0-3) Neutrophils # (Auto) 10.2 x10^3/uL (1.8-7.7) Lymphocytes # (Auto) 1.1 x10^3/uL (1.0-4.8) Monocytes # (Auto) 1.1 x10^3/uL (0.0-1.1) Eosinophils # (Auto) 0.0 x10^3/uL (0.0-0.7) Basophils # (Auto) 0.1 x10^3/uL (0.0-0.2) Prothrombin Time 14.9 SEC (11.7-14.0) Prothromb Time International Ratio 1.2 (0.8-1.1) Sodium Level 141 mmol/L (136-145) Potassium Level 4.7 mmol/L (3.5-5.1) Chloride Level 106 mmol/L (98-107) Carbon Dioxide Level 25 mmol/L (21-32) Anion Gap 10 (6-14) Blood Urea Nitrogen 20 mg/dL (8-26) Creatinine 1.1 mg/dL (0.7-1.3) Estimated GFR (Cockcroft-Gault) 65.4 BUN/Creatinine Ratio 18 (6-20) Glucose Level 114 mg/dL (70-99) Calcium Level 8.4 mg/dL (8.5-10.1) Total Bilirubin 2.2 mg/dL (0.2-1.0) Direct Bilirubin 0.8 mg/dL (0.0-0.2) Aspartate Amino Transf (AST/SGOT) 19 U/L (15-37) Alanine Aminotransferase (ALT/SGPT) 14 U/L (16-63) Alkaline Phosphatase 81 U/L (46-116) Troponin I High Sensitivity 33 ng/L (4-75) 34 ng/L (4-75) RO-Ooz-J-Type Natriuretic Peptide 2607 pg/mL (0-124) Total Protein 6.0 g/dL (6.4-8.2) Albumin 3.1 g/dL (3.4-5.0) Albumin/Globulin Ratio 1.1 (1.0-1.7) SARS-CoV-2 Antigen (Rapid) Negative (NEGATIVE) Urine Collection Type Unknown Urine Color (Auto) Light orange Urine Turbidity Clear Urine pH (Auto) 5.0 (<5.0-8.0) Urine Specific [place] 1.024 (1.000-1.030) Urine Protein (Auto) Negative mg/dL (Negative) Urine Glucose (Auto)(UA) Negative mg/dL (Negative) Urine Ketones (Auto) Negative mg/dL (Negative) Urine Blood (Auto) Small (Negative) Urine Nitrite Negative (Negative) Urine Bilirubin (Auto) Negative (Negative) Urine Urobilinogen (Auto) 3 mg/dL (Normal) Urine Leukocyte Esterase (Auto) Negative (Negative) Urine RBC 1-2 /HPF (0-2) Urine WBC 1-4 /HPF (0-4) Urine Squamous Epithelial Cells Few /LPF Urine Bacteria Few /HPF (0-FEW) Urine Mucus Marked /LPF Test 12/08/21 21:45 Troponin I High Sensitivity 29 ng/L (4-75) Assessment and Plan Assessmemt and Plan Problems Medical Problems: (1) Altered mental status Status: Acute (2) Chest pain Status: Acute (3) Left lower lobe pneumonia Status: Acute (4) Weakness Status: Acute Comment Review of Relevant I have reviewed the following items felisha (where applicable) has been applied. Medications: Current Medications Medications (Trade) Dose Ordered Sig/Luis Armando Route PRN Reason Start Time Stop Time Status Last Admin Dose Admin Ceftriaxone Sodium (Rocephin) 1 gm 1X ONCE IVP 12/08/21 16:15 12/08/21 16:16 DC 12/08/21 16:41 Doxycycline Hyclate 100 mg/ Dextrose 100 ml @ 50 mls/hr 1X ONCE IV 12/08/21 16:30 12/09/21 09:49 DC 12/08/21 16:47 Ketorolac Tromethamine (Toradol 30mg Vial) 30 mg 1X ONCE IVP 12/08/21 17:00 12/08/21 17:01 DC 12/08/21 16:40 Albuterol/ Ipratropium (Duoneb) 3 ml RTQID NEB 12/08/21 20:00 12/09/21 07:17 Memantine (Namenda) 10 mg BID PO 12/08/21 21:00 12/08/21 21:12 Magnesium Oxide (Magnesium Oxide) 400 mg BID PO 12/08/21 21:00 12/08/21 21:12 Pantoprazole Sodium (Protonix) 40 mg HS PO 12/08/21 21:00 12/08/21 21:12 Justifications for Admission Other Justification ABI FOREMAN MD December 09, 2021 10:34
[2021-12-09] MEDS ORDERED: FUROSEMIDE 40 MG TABLET. PO ONE (10:45)
[2021-12-09 11:00] VITALS: BP 133/68
[2021-12-09] MEDS: CEFDINIR 300 MG CAPSULE PO SCH ×2 (11:03→20:06)
[2021-12-09] MEDS: DOXYCYCLINE HYCLATE 100 MG TABLET PO SCH ×2 (11:03→20:05)
--- NOTE | 2021-12-09 13:01 | CONS ---
DATE OF CONSULTATION: 12/09/2021 ATTENDING PHYSICIAN: Jesus Manuel Sow DO. CONSULTING PHYSICIAN: Vick Strange MD. REASON FOR CONSULTATION: The patient is seen in pulmonary consultation at the request of Dr. Sow for abnormal x-ray. HISTORY OF PRESENT ILLNESS: The patient is a 76-year-old that has underlying dementia, generalized weakness. He was recently discharged from rehab center 3 days ago, went home. At home, the noticed some decreased mental acuity. He was diaphoretic and short of breath. He was brought into the Emergency Room. Chest x-ray revealed a left lower lobe infiltrate, consolidation. He was started on IV antibiotics. I was asked to see him in consultation. Since the patient has been admitted, he has pulled out 2 IV sites. Nursing staff was wondering if we could change him over to oral antibiotics. The patient is awake, alert, following commands. He states he has never smoked. His was at the bedside who confirmed that his answers never smoked. He does not wear oxygen at home. PAST MEDICAL HISTORY: Remarkable for chronic AFib, underlying dementia, allergic rhinitis, arrhythmia, hyperlipidemia, hypertension, gastroesophageal reflux. There is no history of asthma or COPD. ALLERGIES: SIGRID INHIBITORS, SULFA, AND MELOXICAM. FAMILY HISTORY: Diabetes. SOCIAL HISTORY: He is retired, has never smoked. MEDICATIONS: List was reviewed. REVIEW OF SYSTEMS: As indicated in the history of present illness, otherwise other systems were reviewed and negative. PHYSICAL EXAMINATION: GENERAL: The patient appeared to be older than stated age. VITAL SIGNS: Stable since admission, he had a fever of 101.0, currently on 2 liters. HEENT: Eyes: The sclerae were nonicteric. NECK: Jugular venous distention was not elevated. No lymphadenopathy. CHEST: Full expansion. LUNGS: Poor flow with diminished breath sounds in the left base. CARDIOVASCULAR: Regular rate and rhythm with S1, S2, no S3. ABDOMEN: Soft, nontender. EXTREMITIES: No clubbing, cyanosis or edema. NEUROLOGIC: The patient was weak, but able to sit up in bed with some assistance. He was able to lift the legs off the bed. He squeezed my hand with both his upper and left upper extremities. Strength was 3-4/5. LABORATORY DATA: White count was elevated. Hemoglobin and hematocrit were noted. Serology for SARS-CoV-2 was negative. Electrolytes were noted. Total bilirubin was elevated. BNP was elevated. Albumin was noted. Chest x-ray as indicated above left lower lobe airspace disease. IMPRESSION: 1. Acute hypoxemic respiratory failure secondary to pneumonia. 2. Abnormal x-ray, compatible with pneumonia, gram-negative, possibly gram-positive, suspect aspiration. 3. Dementia with generalized weakness. 4. Allergic rhinitis. 5. Chronic atrial fibrillation. 6. Hyperlipidemia. 7. Possible acute diastolic heart failure. DISCUSSION: The patient has pulled out his IV site x 2, nursing staff does not think that he will be able to tolerate an additional IV site or PICC line. With that being said, I will switch over to Levaquin 500 daily. Check nasal MRSA screen. I do not think he has gram-positive pneumonia. We will consult speech. PLAN: 1. Levaquin 500 daily. Consult speech. Continue current home medications. 2. Avoid any sedation. Sedating medications. 3. Continue prednisone for now. 4. Discontinue oral doxycycline. I do appreciate the privilege in sharing in the patient's care. WADE DR: Zita TID: [id number]
[2021-12-09 15:00] VITALS: BP 106/63
[2021-12-09] MEDS ORDERED: cefTRIAXone IV Push 1 GM VIAL. IVP SCH (16:00)
[2021-12-09] MEDS: ASPIRIN CHEWABLE 81 MG TABLET. PO SCH (18:24)
[2021-12-09] MEDS: CETIRIZINE HCL 10 MG TABLET. PO SCH (18:24)
[2021-12-09] MEDS: CHOLECALCIFEROL (VITAMIN D3) 1,000 UNIT TABLET PO SCH (18:24)
[2021-12-09 19:00] VITALS: BP 131/66
[2021-12-09] MEDS: PANTOPRAZOLE 40 MG TABLET.DR. PO SCH (20:05)
[2021-12-09] MEDS: LACTOBACILLUS RHAMNOSUS GG 1 CAPSULE. PO SCH (20:05)
[2021-12-09] MEDS: ACETAMINOPHEN 325 MG TABLET. PO PRN (20:12)
[2021-12-09 23:02] VITALS: BP 141/62
[2021-12-10 03:19] VITALS: BP 141/66
[2021-12-10 07:00] VITALS: BP 120/63
[2021-12-10] MEDS: IPRATRPIUM/ALBUTEROL 0.5/2.5MG 3 ML NEBU. NEB SCH ×4 (07:37→21:23)
[2021-12-10] MEDS: POTASSIUM CHLORIDE 20 MEQ TABLET.ER. PO SCH (09:00)
[2021-12-10] MEDS: FLUTICASONE 50MCG/NASAL SPRAY 16GM BOTTLE. NS SCH (09:00)
--- NOTE | 2021-12-10 10:16 | PDOC ---
[facility] PROGRESS NOTE Date of Service DOS: DATE: 12/10/21 TIME: 10:14 Chief Complaint Chief Complaint Bacterial pneumonia, likely gram negative The patient will be admitted. Switch abx to oral given patient will not keep in an IV, breathing treatments, oxygen, steroids, home meds, deep venous thrombosis prophylaxis. Full code. Consult Pulmonary. Consult Rfid Systems Architect. History of Present Illness History of Present Illness 12/10 Patient evaluated examined at bedside. Resting in bed quickly fell back asleep when awoken. Continue oral antibiotics or steroids. PT recommending SNF placement which patient and were agreeable to yesterday. Pulmonary recommendations reviewed. Discussed with bedside RN. 12/09 Patient evaluated examined at bedside. Resting in bed did say breathing is improving. at bedside as well stating that shortness of breath does look much better than yesterday. Continue antibiotics and steroids. Patient refusing to keep pain and IV we will switch IV meds to orals. Should he clinically worsen will need to likely switch antibiotics back to IV and steroids IV. PT OT ordered. Pulmonary recommendations reviewed. Discussed with bedside RN. Vitals/I&O Vitals/I&O: Vital Signs Date Time Temp Pulse Resp B/P (MAP) Pulse Ox O2 Delivery O2 Flow Rate FiO2 12/10/21 07:38 96 Nasal Cannula 2.0 12/10/21 07:00 97.8 68 16 120/63 (82) 97.8 I & O 12/09/21 12/09/21 12/10/21 15:00 23:00 07:00 Output Total 0 ml Balance 0 ml Physical Exam General: Cooperative, No acute distress Heart: Regular rate, Normal S1, Normal S2 Lungs: Clear Abdomen: Normal bowel sounds, Soft, No tenderness Extremities: No edema, Normal pulses Skin: No significant lesion Labs Labs: Laboratory Tests Test 12/10/21 00:10 Glucose (Fingerstick) 191 mg/dL (70-99) Assessment and Plan Assessmemt and Plan Problems Medical Problems: (1) Altered mental status Status: Acute (2) Chest pain Status: Acute (3) Left lower lobe pneumonia Status: Acute (4) Weakness Status: Acute Comment Review of Relevant I have reviewed the following items felisha (where applicable) has been applied. Medications: Current Medications Medications (Trade) Dose Ordered Sig/Luis Armando Route PRN Reason Start Time Stop Time Status Last Admin Dose Admin Doxycycline Hyclate (Vibra-Tab) 100 mg BID PO 12/09/21 10:30 12/09/21 20:05 Prednisone (Prelone Oral Soln) 40 mg DAILY PO 12/09/21 10:30 12/09/21 12:03 DC 12/09/21 11:21 Cefdinir (Omnicef) 300 mg BID PO 12/09/21 11:00 12/09/21 20:06 Furosemide (Lasix) 40 mg 1X ONCE PO 12/09/21 10:45 12/09/21 10:47 DC 12/09/21 11:04 Lactobacillus Rhamnosus (Culturelle) 1 cap BID PO 12/09/21 21:00 12/09/21 20:05 Acetaminophen (Tylenol) 650 mg PRN Q6HRS PRN PO MILD PAIN / TEMP > 100.3'F 12/09/21 20:15 12/09/21 20:12 Justifications for Admission Other Justification ABI FOREMAN MD December 10, 2021 10:16
[2021-12-10] MEDS: AMIODARONE HCL 200 MG TABLET. PO SCH (10:27)
[2021-12-10] MEDS: MAGNESIUM OXIDE 400 MG TABLET PO SCH (10:27)
[2021-12-10] MEDS: LACTOBACILLUS RHAMNOSUS GG 1 CAPSULE. PO SCH ×2 (10:27→23:56)
[2021-12-10] MEDS: DOXYCYCLINE HYCLATE 100 MG TABLET PO SCH ×2 (10:27→23:56)
[2021-12-10] MEDS: ATORVASTATIN CALCIUM 40 MG TABLET. PO SCH (10:27)
[2021-12-10] MEDS: DONEPEZIL HCL 10 MG TABLET. PO SCH (10:28)
[2021-12-10] MEDS: predniSONE 20 MG TABLET PO SCH (10:28)
[2021-12-10] MEDS: LOSARTAN POTASSIUM 50 MG TABLET. PO SCH (10:28)
[2021-12-10] MEDS: MEMANTINE 10 MG TABLET. PO SCH ×2 (10:29→23:56)
[2021-12-10] MEDS: CITALOPRAM 20 MG TABLET. PO SCH (10:29)
[2021-12-10 11:00] VITALS: BP 127/68
[2021-12-10] MEDS: CEFDINIR 300 MG CAPSULE PO SCH ×2 (11:06→23:56)
--- NOTE | 2021-12-10 11:07 | PDOC ---
PULMONARY PROGRESS NOTES DATE: 12/10/21 TIME: 11:07 Subjective Patient asleep, I did not wake him up. Vitals Vital Signs Date Time Temp Pulse Resp B/P (MAP) Pulse Ox O2 Delivery O2 Flow Rate FiO2 12/10/21 10:28 68 120/63 12/10/21 07:38 96 Nasal Cannula 2.0 12/10/21 07:00 97.8 16 97.8 Comments Unable to review systems secondary to dementia Lungs: Clear, Crackles Cardiovascular: S1, S2 Abdomen: Soft Neuro Exam: Alert Extremities: No Edema Skin: Warm Labs Laboratory Tests Test 12/08/21 15:47 12/08/21 16:05 12/08/21 16:21 12/08/21 18:37 White Blood Count 12.5 x10^3/uL (4.0-11.0) Red Blood Count 5.27 x10^6/uL (4.30-5.70) Hemoglobin 15.8 g/dL (13.0-17.5) Hematocrit 46.8 % (39.0-53.0) Mean Corpuscular Volume 89 fL (79-100) Mean Corpuscular Hemoglobin 30 pg (25-35) Mean Corpuscular Hemoglobin Concent 34 g/dL (31-37) Red Cell Distribution Width 14.9 % (11.5-14.5) Platelet Count 123 x10^3/uL (140-400) Neutrophils (%) (Auto) 82 % (31-73) Lymphocytes (%) (Auto) 9 % (24-48) Monocytes (%) (Auto) 9 % (0-9) Eosinophils (%) (Auto) 0 % (0-3) Basophils (%) (Auto) 1 % (0-3) Neutrophils # (Auto) 10.2 x10^3/uL (1.8-7.7) Lymphocytes # (Auto) 1.1 x10^3/uL (1.0-4.8) Monocytes # (Auto) 1.1 x10^3/uL (0.0-1.1) Eosinophils # (Auto) 0.0 x10^3/uL (0.0-0.7) Basophils # (Auto) 0.1 x10^3/uL (0.0-0.2) Prothrombin Time 14.9 SEC (11.7-14.0) Prothromb Time International Ratio 1.2 (0.8-1.1) Sodium Level 141 mmol/L (136-145) Potassium Level 4.7 mmol/L (3.5-5.1) Chloride Level 106 mmol/L (98-107) Carbon Dioxide Level 25 mmol/L (21-32) Anion Gap 10 (6-14) Blood Urea Nitrogen 20 mg/dL (8-26) Creatinine 1.1 mg/dL (0.7-1.3) Estimated GFR (Cockcroft-Gault) 65.4 BUN/Creatinine Ratio 18 (6-20) Glucose Level 114 mg/dL (70-99) Calcium Level 8.4 mg/dL (8.5-10.1) Total Bilirubin 2.2 mg/dL (0.2-1.0) Direct Bilirubin 0.8 mg/dL (0.0-0.2) Aspartate Amino Transf (AST/SGOT) 19 U/L (15-37) Alanine Aminotransferase (ALT/SGPT) 14 U/L (16-63) Alkaline Phosphatase 81 U/L (46-116) Troponin I High Sensitivity 33 ng/L (4-75) 34 ng/L (4-75) QF-Btw-T-Type Natriuretic Peptide 2607 pg/mL (0-124) Total Protein 6.0 g/dL (6.4-8.2) Albumin 3.1 g/dL (3.4-5.0) Albumin/Globulin Ratio 1.1 (1.0-1.7) SARS-CoV-2 Antigen (Rapid) Negative (NEGATIVE) Urine Collection Type Unknown Urine Color (Auto) Light orange Urine Turbidity Clear Urine pH (Auto) 5.0 (<5.0-8.0) Urine Specific [place] 1.024 (1.000-1.030) Urine Protein (Auto) Negative mg/dL (Negative) Urine Glucose (Auto)(UA) Negative mg/dL (Negative) Urine Ketones (Auto) Negative mg/dL (Negative) Urine Blood (Auto) Small (Negative) Urine Nitrite Negative (Negative) Urine Bilirubin (Auto) Negative (Negative) Urine Urobilinogen (Auto) 3 mg/dL (Normal) Urine Leukocyte Esterase (Auto) Negative (Negative) Urine RBC 1-2 /HPF (0-2) Urine WBC 1-4 /HPF (0-4) Urine Squamous Epithelial Cells Few /LPF Urine Bacteria Few /HPF (0-FEW) Urine Mucus Marked /LPF Test 12/08/21 21:45 12/10/21 00:10 Troponin I High Sensitivity 29 ng/L (4-75) Glucose (Fingerstick) 191 mg/dL (70-99) Laboratory Tests Test 12/10/21 00:10 Glucose (Fingerstick) 191 mg/dL (70-99) Medications Active Scripts Medications Dose Route/Sig Max Daily Dose Days Date Category Magnesium (Magnesium Oxide) 500 Mg Capsule 1 Cap PO BID 30 03/11/21 Reported Escitalopram Oxalate 20 Mg Tablet 1 Tab PO DAILY 03/11/21 Reported Amlodipine Besylate 5 Mg Tablet 5 Mg PO DAILY 03/11/21 Reported Amiodarone Hcl 200 Mg Tablet 1 Tab PO DAILY 03/11/21 Reported Crestor (Rosuvastatin Calcium) 5 Mg Tablet 2 Tab PO DAILY 03/11/21 Reported Potassium Chloride (Potassium Chloride) 20 Meq Tablet.er 20 Meq PO DAILY 7 08/16/18 Rx Flonase Allergy Relief (Fluticasone Propionate) 9.9 Ml [place].susp 2 Sprays NS DAILY 11/23/17 Reported Vitamin D3 (Cholecalciferol (Vitamin D3)) 1,000 Unit Tablet 2 Tab PO QEVNG 11/23/17 Reported Aricept (Donepezil Hcl) 10 Mg Tablet 10 Mg PO DAILY 30 07/18/17 Rx Memantine HCl 10 Mg Tablet 10 Mg PO BID 30 07/18/17 Rx Losartan Potassium 50 Mg Tablet 100 Mg PO DAILY 30 07/18/17 Rx Fish Oil 1,000 Mg Capsule ([place]-3 Fatty Acids/Fish Oil) 1 Each Capsule 1 Each PO QEVNG 07/14/17 Reported Aspirin 81 Mg Tab.chew 81 Mg PO QEVNG 09/09/15 Reported Jessica Allergy (Fexofenadine Hcl) 180 Mg Tablet 180 Mg PO QEVNG 09/09/15 Reported Prilosec (Omeprazole) 20 Mg Capsule.dr 20 Mg PO HS 09/09/15 Reported Impression . IMPRESSION: 1. Acute hypoxemic respiratory failure secondary to pneumonia. 2. Abnormal x-ray, compatible with pneumonia, gram-negative, possibly gram-positive, suspect aspiration. 3. Dementia with generalized weakness. 4. Allergic rhinitis. 5. Chronic atrial fibrillation. 6. Hyperlipidemia. 7. Possible acute diastolic heart failure. DISCUSSION: The patient has pulled out his IV site x 2, nursing staff does not think that he will be able to tolerate an additional IV site or PICC line. With that being said, I will switch over to Levaquin 500 daily. Check nasal MRSA screen. I do not think he has gram-positive pneumonia. We will consult speech. Plan . Updated 12/10 spoke with speech, no signs of overt aspiration Continue Levaquin Avoid sedating medications Continue prednisone PLAN: 1. Levaquin 500 daily. Consult speech. Continue current home medications. 2. Avoid any sedation. Sedating medications. 3. Continue prednisone for now. 4. Discontinue oral doxycycline. I do appreciate the privilege in sharing in the patient's care. PAULO CARL MD December 10, 2021 11:07
[2021-12-10 15:00] VITALS: BP 145/59
--- NOTE | 2021-12-10 16:56 | NUR ---
Patient does not have an IV. Addendum: 12/10/21 at 1657 by BERNARDINO MCCANN RN RN Amended: Links added.
[2021-12-10] MEDS: CETIRIZINE HCL 10 MG TABLET. PO SCH (18:22)
[2021-12-10] MEDS: ASPIRIN CHEWABLE 81 MG TABLET. PO SCH (18:22)
[2021-12-10] MEDS: CHOLECALCIFEROL (VITAMIN D3) 1,000 UNIT TABLET PO SCH (18:22)
[2021-12-10 19:00] VITALS: BP 109/56
[2021-12-10 22:42] VITALS: BP 126/64
[2021-12-10] MEDS: PANTOPRAZOLE 40 MG TABLET.DR. PO SCH (23:56)
[2021-12-11] MEDS: ACETAMINOPHEN 325 MG TABLET. PO PRN (00:04)
[2021-12-11] MEDS: MAGNESIUM OXIDE 400 MG TABLET PO SCH ×3 (00:04→20:23)
[2021-12-11 02:58] VITALS: BP 152/74
[2021-12-11] MEDS: IPRATRPIUM/ALBUTEROL 0.5/2.5MG 3 ML NEBU. NEB SCH ×4 (05:45→19:30)
[2021-12-11 07:00] VITALS: BP 124/64
--- NOTE | 2021-12-11 07:42 | PDOC ---
PULMONARY PROGRESS NOTES DATE: 12/11/21 TIME: 07:42 Subjective pt eating breakfast not more soa, no chest pain Vitals Vital Signs Date Time Temp Pulse Resp B/P (MAP) Pulse Ox O2 Delivery O2 Flow Rate FiO2 12/11/21 05:48 96 Nasal Cannula 2.0 12/11/21 02:58 97.7 79 18 152/74 (100) 97.7 Comments Unable to review systems secondary to dementia Lungs: Clear, Crackles Cardiovascular: S1, S2 Abdomen: Soft Neuro Exam: Alert Extremities: No Edema Skin: Warm Labs Laboratory Tests Test 12/10/21 00:10 Glucose (Fingerstick) 191 mg/dL (70-99) Medications Active Scripts Medications Dose Route/Sig Max Daily Dose Days Date Category Magnesium (Magnesium Oxide) 500 Mg Capsule 1 Cap PO BID 30 03/11/21 Reported Escitalopram Oxalate 20 Mg Tablet 1 Tab PO DAILY 03/11/21 Reported Amlodipine Besylate 5 Mg Tablet 5 Mg PO DAILY 03/11/21 Reported Amiodarone Hcl 200 Mg Tablet 1 Tab PO DAILY 03/11/21 Reported Crestor (Rosuvastatin Calcium) 5 Mg Tablet 2 Tab PO DAILY 03/11/21 Reported Potassium Chloride (Potassium Chloride) 20 Meq Tablet.er 20 Meq PO DAILY 7 08/16/18 Rx Flonase Allergy Relief (Fluticasone Propionate) 9.9 Ml [place].susp 2 Sprays NS DAILY 11/23/17 Reported Vitamin D3 (Cholecalciferol (Vitamin D3)) 1,000 Unit Tablet 2 Tab PO QEVNG 11/23/17 Reported Aricept (Donepezil Hcl) 10 Mg Tablet 10 Mg PO DAILY 30 07/18/17 Rx Memantine HCl 10 Mg Tablet 10 Mg PO BID 30 07/18/17 Rx Losartan Potassium 50 Mg Tablet 100 Mg PO DAILY 30 07/18/17 Rx Fish Oil 1,000 Mg Capsule ([place]-3 Fatty Acids/Fish Oil) 1 Each Capsule 1 Each PO QEVNG 07/14/17 Reported Aspirin 81 Mg Tab.chew 81 Mg PO QEVNG 09/09/15 Reported Jessica Allergy (Fexofenadine Hcl) 180 Mg Tablet 180 Mg PO QEVNG 09/09/15 Reported Prilosec (Omeprazole) 20 Mg Capsule.dr 20 Mg PO HS 09/09/15 Reported Impression . IMPRESSION: 1. Acute hypoxemic respiratory failure secondary to pneumonia. 2. Abnormal x-ray, compatible with pneumonia, gram-negative, possibly gram-positive, suspect aspiration. 3. Dementia with generalized weakness. 4. Allergic rhinitis. 5. Chronic atrial fibrillation. 6. Hyperlipidemia. 7. Possible acute diastolic heart failure. DISCUSSION: The patient has pulled out his IV site x 2, nursing staff does not think that he will be able to tolerate an additional IV site or PICC line. With that being said, I will switch over to Levaquin 500 daily. Check nasal MRSA screen. I do not think he has gram-positive pneumonia. We will consult speech. Plan . 12/11 continue the same RX Spoke with REGIONAL PRODUCTION MANAGER to help withfeeding spoke with speech, no signs of overt aspiration Continue Levaquin Avoid sedating medications Continue prednisone PAULO CARL MD December 11, 2021 07:42
[2021-12-11] MEDS: POTASSIUM CHLORIDE 20 MEQ TABLET.ER. PO SCH (09:00)
[2021-12-11] MEDS: FLUTICASONE 50MCG/NASAL SPRAY 16GM BOTTLE. NS SCH (09:00)
[2021-12-11] MEDS: predniSONE 20 MG TABLET PO SCH (09:23)
[2021-12-11] MEDS: DONEPEZIL HCL 10 MG TABLET. PO SCH (09:23)
[2021-12-11] MEDS: CEFDINIR 300 MG CAPSULE PO SCH (09:23)
[2021-12-11] MEDS: CITALOPRAM 20 MG TABLET. PO SCH (09:24)
[2021-12-11] MEDS: LACTOBACILLUS RHAMNOSUS GG 1 CAPSULE. PO SCH ×2 (09:25→20:23)
[2021-12-11] MEDS: LOSARTAN POTASSIUM 50 MG TABLET. PO SCH (09:25)
[2021-12-11] MEDS: ATORVASTATIN CALCIUM 40 MG TABLET. PO SCH (09:25)
[2021-12-11] MEDS: AMIODARONE HCL 200 MG TABLET. PO SCH (09:25)
[2021-12-11] MEDS: MEMANTINE 10 MG TABLET. PO SCH ×2 (09:26→20:23)
[2021-12-11] MEDS: DOXYCYCLINE HYCLATE 100 MG TABLET PO SCH (09:26)
--- NOTE | 2021-12-11 09:30 | NUR ---
Patient did not have oxygen on when this nurse entered patient's room. Oxygen saturation 89% on room air. Patient placed on 2L per nasal cannula and saturation rechecked. Patient's oxygen saturation 94% on 2L, patient instructed to leave cannula in place.
[2021-12-11 11:00] VITALS: BP 132/70
[2021-12-11 12:59] LABS: BASO % 0 % (0-3); EOS % 0 % (0-3); HEMATOCRIT 43.5 % (39.0-53.0); HEMOGLOBIN 14.7 g/dL (13.0-17.5); LYMPH # 1.1 x10^3/uL (1.0-4.8); LYMPH % 12 % (24-48); MEAN CORPUSCULAR HEMOGLOBIN 30 pg (25-35); MEAN CORPUSCULAR HGB CONC 34 g/dL (31-37); MEAN CORPUSCULAR VOLUME 90 fL (79-100); MONO % 10 % (0-9); NEUT # 7.7 x10^3/uL (1.8-7.7); NEUT % 78 % (31-73); PLATELET COUNT 154 x10^3/uL (140-400); RED BLOOD COUNT 4.86 x10^6/uL (4.30-5.70); RED CELL DISTRIBUTION WIDTH 14.7 % (11.5-14.5); WHITE BLOOD COUNT 9.9 x10^3/uL (4.0-11.0)
[2021-12-11 13:00] LABS: CALCIUM 8.6 mg/dL (8.5-10.1); CREATININE 1.1 mg/dL (0.7-1.3); GFR 65.4; POTASSIUM 3.3 mmol/L (3.5-5.1)
[2021-12-11 15:00] VITALS: BP 123/64
--- NOTE | 2021-12-11 17:50 | PDOC ---
[employer] PROGRESS NOTE Date of Service DOS: DATE: 12/11/21 TIME: 17:49 Chief Complaint Chief Complaint Bacterial pneumonia, likely gram negative The patient will be admitted. Switch abx to oral given patient will not keep in an IV, breathing treatments, oxygen, steroids, home meds, deep venous thrombosis prophylaxis. Full code. Consult Pulmonary. Consult Tub Mender. History of Present Illness History of Present Illness 12/11 Seen and examined at bedside. Respiratory status improving. Needs placement. Antibiotics switched to Levaquin per pulmonary recommendations. Continue otherwise. Discussed with bedside RN. Supply Chain Design Manager recommendations reviewed. Continue therapy. 12/10 Patient evaluated examined at bedside. Resting in bed quickly fell back asleep when awoken. Continue oral antibiotics or steroids. PT recommending SNF placement which patient and were agreeable to yesterday. Pulmonary recommendations reviewed. Discussed with bedside RN. 12/09 Patient evaluated examined at bedside. Resting in bed did say breathing is improving. at bedside as well stating that shortness of breath does look much better than yesterday. Continue antibiotics and steroids. Patient refusing to keep pain and IV we will switch IV meds to orals. Should he clinically worsen will need to likely switch antibiotics back to IV and steroids IV. PT OT ordered. Pulmonary recommendations reviewed. Discussed with bedside RN. Vitals/I&O Vitals/I&O: Vital Signs Date Time Temp Pulse Resp B/P (MAP) Pulse Ox O2 Delivery O2 Flow Rate FiO2 12/11/21 16:02 95 Nasal Cannula 2.0 12/11/21 15:00 97.6 72 18 123/64 (83) 97.6 Physical Exam General: Cooperative, No acute distress Heart: Regular rate, Normal S1, Normal S2 Lungs: Clear, Crackles Abdomen: Normal bowel sounds, Soft, No tenderness Extremities: No edema, Normal pulses Skin: No significant lesion Labs Labs: Laboratory Tests Test 12/11/21 12:27 White Blood Count 9.9 x10^3/uL (4.0-11.0) Red Blood Count 4.86 x10^6/uL (4.30-5.70) Hemoglobin 14.7 g/dL (13.0-17.5) Hematocrit 43.5 % (39.0-53.0) Mean Corpuscular Volume 90 fL (79-100) Mean Corpuscular Hemoglobin 30 pg (25-35) Mean Corpuscular Hemoglobin Concent 34 g/dL (31-37) Red Cell Distribution Width 14.7 % (11.5-14.5) Platelet Count 154 x10^3/uL (140-400) Neutrophils (%) (Auto) 78 % (31-73) Lymphocytes (%) (Auto) 12 % (24-48) Monocytes (%) (Auto) 10 % (0-9) Eosinophils (%) (Auto) 0 % (0-3) Basophils (%) (Auto) 0 % (0-3) Neutrophils # (Auto) 7.7 x10^3/uL (1.8-7.7) Lymphocytes # (Auto) 1.1 x10^3/uL (1.0-4.8) Monocytes # (Auto) 1.0 x10^3/uL (0.0-1.1) Eosinophils # (Auto) 0.0 x10^3/uL (0.0-0.7) Basophils # (Auto) 0.0 x10^3/uL (0.0-0.2) Sodium Level 144 mmol/L (136-145) Potassium Level 3.3 mmol/L (3.5-5.1) Chloride Level 108 mmol/L (98-107) Carbon Dioxide Level 26 mmol/L (21-32) Anion Gap 10 (6-14) Blood Urea Nitrogen 39 mg/dL (8-26) Creatinine 1.1 mg/dL (0.7-1.3) Estimated GFR (Cockcroft-Gault) 65.4 Glucose Level 97 mg/dL (70-99) Calcium Level 8.6 mg/dL (8.5-10.1) Assessment and Plan Assessmemt and Plan Problems Medical Problems: (1) Altered mental status Status: Acute (2) Chest pain Status: Acute (3) Left lower lobe pneumonia Status: Acute (4) Weakness Status: Acute Comment Review of Relevant I have reviewed the following items felisha (where applicable) has been applied. Justifications for Admission Other Justification ABI FOREMAN MD December 11, 2021 17:50
[2021-12-11] MEDS: ASPIRIN CHEWABLE 81 MG TABLET. PO SCH (18:35)
[2021-12-11] MEDS: CHOLECALCIFEROL (VITAMIN D3) 1,000 UNIT TABLET PO SCH (18:35)
[2021-12-11] MEDS: CETIRIZINE HCL 10 MG TABLET. PO SCH (18:35)
[2021-12-11 19:00] VITALS: BP 139/76
[2021-12-11] MEDS: PANTOPRAZOLE 40 MG TABLET.DR. PO SCH (20:24)
[2021-12-11 23:12] VITALS: BP 141/60
[2021-12-12] MEDS: ACETAMINOPHEN 325 MG TABLET. PO PRN (00:51)
[2021-12-12 03:37] VITALS: BP 157/66
[2021-12-12 07:00] VITALS: BP 153/66
[2021-12-12] MEDS: IPRATRPIUM/ALBUTEROL 0.5/2.5MG 3 ML NEBU. NEB SCH ×4 (07:45→19:30)
[2021-12-12] MEDS: FLUTICASONE 50MCG/NASAL SPRAY 16GM BOTTLE. NS SCH (09:00)
--- NOTE | 2021-12-12 09:03 | PDOC ---
PULMONARY PROGRESS NOTES DATE: 12/12/21 TIME: 09:03 Subjective Patient sitting up in a chair eating lunch, not more short of air. Vitals Vital Signs Date Time Temp Pulse Resp B/P (MAP) Pulse Ox O2 Delivery O2 Flow Rate FiO2 12/12/21 07:45 97 Nasal Cannula 2.0 12/12/21 07:00 97.2 61 18 153/66 (95) 97.2 Comments Unable to review systems secondary to dementia Lungs: Clear, Crackles Cardiovascular: S1, S2 Abdomen: Soft Neuro Exam: Alert Extremities: No Edema Skin: Warm Labs Laboratory Tests Test 12/11/21 12:27 White Blood Count 9.9 x10^3/uL (4.0-11.0) Red Blood Count 4.86 x10^6/uL (4.30-5.70) Hemoglobin 14.7 g/dL (13.0-17.5) Hematocrit 43.5 % (39.0-53.0) Mean Corpuscular Volume 90 fL (79-100) Mean Corpuscular Hemoglobin 30 pg (25-35) Mean Corpuscular Hemoglobin Concent 34 g/dL (31-37) Red Cell Distribution Width 14.7 % (11.5-14.5) Platelet Count 154 x10^3/uL (140-400) Neutrophils (%) (Auto) 78 % (31-73) Lymphocytes (%) (Auto) 12 % (24-48) Monocytes (%) (Auto) 10 % (0-9) Eosinophils (%) (Auto) 0 % (0-3) Basophils (%) (Auto) 0 % (0-3) Neutrophils # (Auto) 7.7 x10^3/uL (1.8-7.7) Lymphocytes # (Auto) 1.1 x10^3/uL (1.0-4.8) Monocytes # (Auto) 1.0 x10^3/uL (0.0-1.1) Eosinophils # (Auto) 0.0 x10^3/uL (0.0-0.7) Basophils # (Auto) 0.0 x10^3/uL (0.0-0.2) Sodium Level 144 mmol/L (136-145) Potassium Level 3.3 mmol/L (3.5-5.1) Chloride Level 108 mmol/L (98-107) Carbon Dioxide Level 26 mmol/L (21-32) Anion Gap 10 (6-14) Blood Urea Nitrogen 39 mg/dL (8-26) Creatinine 1.1 mg/dL (0.7-1.3) Estimated GFR (Cockcroft-Gault) 65.4 Glucose Level 97 mg/dL (70-99) Calcium Level 8.6 mg/dL (8.5-10.1) Laboratory Tests Test 12/11/21 12:27 White Blood Count 9.9 x10^3/uL (4.0-11.0) Red Blood Count 4.86 x10^6/uL (4.30-5.70) Hemoglobin 14.7 g/dL (13.0-17.5) Hematocrit 43.5 % (39.0-53.0) Mean Corpuscular Volume 90 fL (79-100) Mean Corpuscular Hemoglobin 30 pg (25-35) Mean Corpuscular Hemoglobin Concent 34 g/dL (31-37) Red Cell Distribution Width 14.7 % (11.5-14.5) Platelet Count 154 x10^3/uL (140-400) Neutrophils (%) (Auto) 78 % (31-73) Lymphocytes (%) (Auto) 12 % (24-48) Monocytes (%) (Auto) 10 % (0-9) Eosinophils (%) (Auto) 0 % (0-3) Basophils (%) (Auto) 0 % (0-3) Neutrophils # (Auto) 7.7 x10^3/uL (1.8-7.7) Lymphocytes # (Auto) 1.1 x10^3/uL (1.0-4.8) Monocytes # (Auto) 1.0 x10^3/uL (0.0-1.1) Eosinophils # (Auto) 0.0 x10^3/uL (0.0-0.7) Basophils # (Auto) 0.0 x10^3/uL (0.0-0.2) Sodium Level 144 mmol/L (136-145) Potassium Level 3.3 mmol/L (3.5-5.1) Chloride Level 108 mmol/L (98-107) Carbon Dioxide Level 26 mmol/L (21-32) Anion Gap 10 (6-14) Blood Urea Nitrogen 39 mg/dL (8-26) Creatinine 1.1 mg/dL (0.7-1.3) Estimated GFR (Cockcroft-Gault) 65.4 Glucose Level 97 mg/dL (70-99) Calcium Level 8.6 mg/dL (8.5-10.1) Medications Active Scripts Medications Dose Route/Sig Max Daily Dose Days Date Category Magnesium (Magnesium Oxide) 500 Mg Capsule 1 Cap PO BID 30 03/11/21 Reported Escitalopram Oxalate 20 Mg Tablet 1 Tab PO DAILY 03/11/21 Reported Amlodipine Besylate 5 Mg Tablet 5 Mg PO DAILY 03/11/21 Reported Amiodarone Hcl 200 Mg Tablet 1 Tab PO DAILY 03/11/21 Reported Crestor (Rosuvastatin Calcium) 5 Mg Tablet 2 Tab PO DAILY 03/11/21 Reported Potassium Chloride (Potassium Chloride) 20 Meq Tablet.er 20 Meq PO DAILY 7 08/16/18 Rx Flonase Allergy Relief (Fluticasone Propionate) 9.9 Ml [place].susp 2 Sprays NS DAILY 11/23/17 Reported Vitamin D3 (Cholecalciferol (Vitamin D3)) 1,000 Unit Tablet 2 Tab PO QEVNG 11/23/17 Reported Aricept (Donepezil Hcl) 10 Mg Tablet 10 Mg PO DAILY 30 07/18/17 Rx Memantine HCl 10 Mg Tablet 10 Mg PO BID 30 07/18/17 Rx Losartan Potassium 50 Mg Tablet 100 Mg PO DAILY 30 07/18/17 Rx Fish Oil 1,000 Mg Capsule ([place]-3 Fatty Acids/Fish Oil) 1 Each Capsule 1 Each PO QEVNG 07/14/17 Reported Aspirin 81 Mg Tab.chew 81 Mg PO QEVNG 09/09/15 Reported Jessica Allergy (Fexofenadine Hcl) 180 Mg Tablet 180 Mg PO QEVNG 09/09/15 Reported Prilosec (Omeprazole) 20 Mg Capsule.dr 20 Mg PO HS 09/09/15 Reported Impression . IMPRESSION: 1. Acute hypoxemic respiratory failure secondary to pneumonia. 2. Abnormal x-ray, compatible with pneumonia, gram-negative, possibly gram-positive, suspect aspiration. 3. Dementia with generalized weakness. 4. Allergic rhinitis. 5. Chronic atrial fibrillation. 6. Hyperlipidemia. 7. Possible acute diastolic heart failure. DISCUSSION: The patient has pulled out his IV site x 2, nursing staff does not think that he will be able to tolerate an additional IV site or PICC line. With that being said, I will switch over to Levaquin 500 daily. Check nasal MRSA screen. I do not think he has gram-positive pneumonia. We will consult speech. Plan . Updated 12/12 Discussed with at the bedside Follow-up for February 21 at 1:45 PM Finish course of oral antibiotics, and prednisone PAULO CARL MD December 12, 2021 09:03
[2021-12-12] MEDS: MEMANTINE 10 MG TABLET. PO SCH ×2 (10:05→21:10)
[2021-12-12] MEDS: LACTOBACILLUS RHAMNOSUS GG 1 CAPSULE. PO SCH ×2 (10:05→21:10)
[2021-12-12] MEDS: AMIODARONE HCL 200 MG TABLET. PO SCH (10:06)
[2021-12-12] MEDS: ATORVASTATIN CALCIUM 40 MG TABLET. PO SCH (10:06)
[2021-12-12] MEDS: MAGNESIUM OXIDE 400 MG TABLET PO SCH ×2 (10:07→21:10)
[2021-12-12] MEDS: DONEPEZIL HCL 10 MG TABLET. PO SCH (10:07)
[2021-12-12] MEDS: CITALOPRAM 20 MG TABLET. PO SCH (10:07)
[2021-12-12] MEDS: predniSONE 20 MG TABLET PO SCH (10:08)
[2021-12-12] MEDS: LOSARTAN POTASSIUM 50 MG TABLET. PO SCH (10:08)
[2021-12-12] MEDS: POTASSIUM CHLORIDE 20 MEQ TABLET.ER. PO SCH (10:09)
[2021-12-12 11:00] VITALS: BP 127/63
--- NOTE | 2021-12-12 11:40 | PDOC ---
[employer] PROGRESS NOTE Date of Service DOS: DATE: 12/12/21 TIME: 11:36 Chief Complaint Chief Complaint Bacterial pneumonia, likely gram negative The patient will be admitted. Switch abx to oral given patient will not keep in an IV, breathing treatments, oxygen, steroids, home meds, deep venous thrombosis prophylaxis. Full code. Consult Pulmonary. Consult Associate Editor. History of Present Illness History of Present Illness 12/12: Patient seen and evaluated. He is on oral Levaquin. No concerns for aspiration, per ST. He is comfortable discharging to SNU today. Discussed with our social workers, he has been accepted to [facility]. Greater than 30 minutes spent managing the discharge of this patient. 12/11 Seen and examined at bedside. Respiratory status improving. Needs placement. Antibiotics switched to Levaquin per pulmonary recommendations. Continue otherwise. Discussed with bedside RN. Manufacturing Shift Supervisor recommendations reviewed. Continue therapy. 12/10 Patient evaluated examined at bedside. Resting in bed quickly fell back asleep when awoken. Continue oral antibiotics or steroids. PT recommending SNF placement which patient and were agreeable to yesterday. Pulmonary recommendations reviewed. Discussed with bedside RN. 12/09 Patient evaluated examined at bedside. Resting in bed did say breathing is improving. at bedside as well stating that shortness of breath does look m uch better than yesterday. Continue antibiotics and steroids. Patient refusing to keep pain and IV we will switch IV meds to orals. Should he clinically worsen will need to likely switch antibiotics back to IV and steroids IV. PT OT ordered. Pulmonary recommendations reviewed. Discussed with bedside RN. Vitals/I&O Vitals/I&O: Vital Signs Date Time Temp Pulse Resp B/P (MAP) Pulse Ox O2 Delivery O2 Flow Rate FiO2 12/12/21 11:00 97.5 72 18 127/63 (84) 95 Nasal Cannula 2.0 97.5 Physical Exam General: Cooperative, No acute distress Heart: Regular rate, Normal S1, Normal S2 Lungs: Clear, Crackles Abdomen: Normal bowel sounds, Soft, No tenderness Extremities: No edema, Normal pulses Skin: No significant lesion Labs Labs: Laboratory Tests Test 12/11/21 12:27 White Blood Count 9.9 x10^3/uL (4.0-11.0) Red Blood Count 4.86 x10^6/uL (4.30-5.70) Hemoglobin 14.7 g/dL (13.0-17.5) Hematocrit 43.5 % (39.0-53.0) Mean Corpuscular Volume 90 fL (79-100) Mean Corpuscular Hemoglobin 30 pg (25-35) Mean Corpuscular Hemoglobin Concent 34 g/dL (31-37) Red Cell Distribution Width 14.7 % (11.5-14.5) Platelet Count 154 x10^3/uL (140-400) Neutrophils (%) (Auto) 78 % (31-73) Lymphocytes (%) (Auto) 12 % (24-48) Monocytes (%) (Auto) 10 % (0-9) Eosinophils (%) (Auto) 0 % (0-3) Basophils (%) (Auto) 0 % (0-3) Neutrophils # (Auto) 7.7 x10^3/uL (1.8-7.7) Lymphocytes # (Auto) 1.1 x10^3/uL (1.0-4.8) Monocytes # (Auto) 1.0 x10^3/uL (0.0-1.1) Eosinophils # (Auto) 0.0 x10^3/uL (0.0-0.7) Basophils # (Auto) 0.0 x10^3/uL (0.0-0.2) Sodium Level 144 mmol/L (136-145) Potassium Level 3.3 mmol/L (3.5-5.1) Chloride Level 108 mmol/L (98-107) Carbon Dioxide Level 26 mmol/L (21-32) Anion Gap 10 (6-14) Blood Urea Nitrogen 39 mg/dL (8-26) Creatinine 1.1 mg/dL (0.7-1.3) Estimated GFR (Cockcroft-Gault) 65.4 Glucose Level 97 mg/dL (70-99) Calcium Level 8.6 mg/dL (8.5-10.1) Assessment and Plan Assessmemt and Plan Problems Medical Problems: (1) Altered mental status Status: Acute (2) Chest pain Status: Acute (3) Left lower lobe pneumonia Status: Acute (4) Weakness Status: Acute Comment Review of Relevant I have reviewed the following items felisha (where applicable) has been applied. Medications: Current Medications Medications (Trade) Dose Ordered Sig/Luis Armando Route PRN Reason Start Time Stop Time Status Last Admin Dose Admin Levofloxacin (Levaquin) 750 mg DAILY06 PO 12/11/21 12:15 12/12/21 06:11 Lorazepam (Ativan) 2 mg PRN Q6HRS PRN PO ANXIETY / AGITATION 12/12/21 05:30 12/12/21 06:11 Justifications for Admission Other Justification JUANA JAMESON MD December 12, 2021 11:40
--- NOTE | 2021-12-12 11:43 | PDOC3 ---
Discharge Summary Visit Information Date of Admission: December 08, 2021 Date of Discharge: December 12, 2021 Final Diagnosis Problems Medical Problems: (1) Altered mental status Status: Acute (2) Chest pain Status: Acute (3) Left lower lobe pneumonia Status: Acute (4) Weakness Status: Acute Brief Hospital Course Allergies Allergies Coded Allergies Type Severity Reaction Last Updated Verified Sulfa (Sulfonamide Antibiotics) Adverse Reaction Intermediate "SHAKES" 03/12/21 Yes meloxicam Adverse Reaction Intermediate "SHAKES" 03/12/21 Yes SIGRID Inhibitors Adverse Reaction Mild COUGH 02/01/18 Yes Vital Signs Vital Signs Date Time Temp Pulse Resp B/P (MAP) Pulse Ox O2 Delivery O2 Flow Rate FiO2 12/12/21 11:00 97.5 72 18 127/63 (84) 95 Nasal Cannula 2.0 97.5 Lab Results Laboratory Tests Test 12/11/21 12:27 White Blood Count 9.9 x10^3/uL (4.0-11.0) Red Blood Count 4.86 x10^6/uL (4.30-5.70) Hemoglobin 14.7 g/dL (13.0-17.5) Hematocrit 43.5 % (39.0-53.0) Mean Corpuscular Volume 90 fL (79-100) Mean Corpuscular Hemoglobin 30 pg (25-35) Mean Corpuscular Hemoglobin Concent 34 g/dL (31-37) Red Cell Distribution Width 14.7 % (11.5-14.5) Platelet Count 154 x10^3/uL (140-400) Neutrophils (%) (Auto) 78 % (31-73) Lymphocytes (%) (Auto) 12 % (24-48) Monocytes (%) (Auto) 10 % (0-9) Eosinophils (%) (Auto) 0 % (0-3) Basophils (%) (Auto) 0 % (0-3) Neutrophils # (Auto) 7.7 x10^3/uL (1.8-7.7) Lymphocytes # (Auto) 1.1 x10^3/uL (1.0-4.8) Monocytes # (Auto) 1.0 x10^3/uL (0.0-1.1) Eosinophils # (Auto) 0.0 x10^3/uL (0.0-0.7) Basophils # (Auto) 0.0 x10^3/uL (0.0-0.2) Sodium Level 144 mmol/L (136-145) Potassium Level 3.3 mmol/L (3.5-5.1) Chloride Level 108 mmol/L (98-107) Carbon Dioxide Level 26 mmol/L (21-32) Anion Gap 10 (6-14) Blood Urea Nitrogen 39 mg/dL (8-26) Creatinine 1.1 mg/dL (0.7-1.3) Estimated GFR (Cockcroft-Gault) 65.4 Glucose Level 97 mg/dL (70-99) Calcium Level 8.6 mg/dL (8.5-10.1) Laboratory Tests Test 12/11/21 12:27 White Blood Count 9.9 x10^3/uL (4.0-11.0) Red Blood Count 4.86 x10^6/uL (4.30-5.70) Hemoglobin 14.7 g/dL (13.0-17.5) Hematocrit 43.5 % (39.0-53.0) Mean Corpuscular Volume 90 fL (79-100) Mean Corpuscular Hemoglobin 30 pg (25-35) Mean Corpuscular Hemoglobin Concent 34 g/dL (31-37) Red Cell Distribution Width 14.7 % (11.5-14.5) Platelet Count 154 x10^3/uL (140-400) Neutrophils (%) (Auto) 78 % (31-73) Lymphocytes (%) (Auto) 12 % (24-48) Monocytes (%) (Auto) 10 % (0-9) Eosinophils (%) (Auto) 0 % (0-3) Basophils (%) (Auto) 0 % (0-3) Neutrophils # (Auto) 7.7 x10^3/uL (1.8-7.7) Lymphocytes # (Auto) 1.1 x10^3/uL (1.0-4.8) Monocytes # (Auto) 1.0 x10^3/uL (0.0-1.1) Eosinophils # (Auto) 0.0 x10^3/uL (0.0-0.7) Basophils # (Auto) 0.0 x10^3/uL (0.0-0.2) Sodium Level 144 mmol/L (136-145) Potassium Level 3.3 mmol/L (3.5-5.1) Chloride Level 108 mmol/L (98-107) Carbon Dioxide Level 26 mmol/L (21-32) Anion Gap 10 (6-14) Blood Urea Nitrogen 39 mg/dL (8-26) Creatinine 1.1 mg/dL (0.7-1.3) Estimated GFR (Cockcroft-Gault) 65.4 Glucose Level 97 mg/dL (70-99) Calcium Level 8.6 mg/dL (8.5-10.1) Brief Hospital Course Mr. Sen is a 76 old male who presented with pneumonia. Consultation was placed to pulmonology. Patient was treated with IV antibiotics and was later transition to oral antibiotics. Spoke with physical therapy and recommended SNU. When he was stable he was discharged to [facility] on oral Levaquin and prednisone taper. Discharge Information Condition at Discharge: Improved Disposition/Orders: D/C to Another Facility Scheduled Amiodarone Hcl (Amiodarone Hcl) 200 Mg Tablet, 1 TAB PO DAILY for arrythmia, #90 Ref 1 (Reported) Entered as Reported by: AMERICA FINLEY RN on 03/11/211109 Last Action: Continued on 12/08/211710 by NIAL CASTLE Amlodipine Besylate (Amlodipine Besylate) 5 Mg Tablet, 5 MG PO DAILY for htn, (Reported) Entered as Reported by: AMERICA FINLEY RN on 03/11/21 111 Last Action: Continued on 12/08/211710 by NIAL CASTLE Aspirin (Aspirin) 81 Mg Tab.chew, 81 MG PO QEVNG, (Reported) Entered as Reported by: CAROLYNN KHAN on 09/09/15 1539 Last Action: Continued on 12/08/211710 by NIAL CASTLE Cholecalciferol (Vitamin D3) (Vitamin D3) 1,000 Unit Tablet, 2 TAB PO QEVNG, #30 Ref 5 (Reported) Entered as Reported by: ULISSES MCKEON on 11/23/17 1513 Last Action: Continued on 12/08/211710 by NIAL CASTLE Donepezil Hcl (Aricept) 10 Mg Tablet, 10 MG PO DAILY for 30 Days, #30 Prescribed by: PEDRO VANCE on 07/18/17 0918 Last Action: Continued on 12/08/211710 by NIAL CASTLE Escitalopram Oxalate (Escitalopram Oxalate) 20 Mg Tablet, 1 TAB PO DAILY for neuro, #30 Ref 5 (Reported) Entered as Reported by: AMERICA FINLEY RN on 03/11/211109 Last Action: Converted on 12/08/211710 by NIAL CASTLE Fexofenadine Hcl (Jessica Allergy) 180 Mg Tablet, 180 MG PO QEVNG, (Reported) Entered as Reported by: CAROLYNN KHAN on 09/09/15 153 Last Action: Converted on 12/08/211710 by NIAL CASTLE Fluticasone Propionate (Flonase Allergy Relief) 9.9 Ml [place].susp, 2 SPRAYS NS DAILY, (Reported) Entered as Reported by: ULISSES MCKEON on 11/23/171517 Last Action: Converted on 12/08/211710 by NIAL CASTLE Losartan Potassium (Losartan Potassium) 50 Mg Tablet, 100 MG PO DAILY for 30 Days, #60 Prescribed by: PEDRO VANCE on 07/18/17 0918 Last Action: Continued on 12/08/211710 by NIAL CASTLE Magnesium Oxide (Magnesium) 500 Mg Capsule, 1 CAP PO BID for supplement for 30 Days, #60 Ref 0 (Reported) Entered as Reported by: AMERICA FINLEY RN on 03/11/211109 Last Action: Converted on 12/08/211710 by NIAL CASTLE Memantine HCl (Memantine HCl) 10 Mg Tablet, 10 MG PO BID for 30 Days, #60 Prescribed by: PEDRO VANCE on 07/18/17917 Last Action: Continued on 12/08/211710 by NIA CASTIVETT [place]-3 Fatty Acids/Fish Oil (Fish Oil 1,000 Mg Capsule) 1 Each Capsule, 1 EACH PO QEVNG, (Reported) Entered as Reported by: DEX HUANG on 07/14/172306 Omeprazole (Prilosec) 20 Mg Capsule.dr, 20 MG PO HS, (Reported) Entered as Reported by: CAROLYNN KHAN on 09/09/15 153 Last Action: Converted on 12/08/211710 by NIAL CASTLE Potassium Chloride (Potassium Chloride ) 20 Meq Tablet.er, 20 MEQ PO DAILY for 7 Days, #7 Prescribed by: ROSE CLARK APRN on 08/16/18 0045 Last Action: Continued on 12/08/211710 by SIDDHARTH ELLSWORTH Rosuvastatin Calcium (Crestor) 5 Mg Tablet, 2 TAB PO DAILY for HLD, #30 Ref 5 (Reported) Entered as Reported by: AMERICA FINLEY RN on 03/11/21 1110 Last Action: Converted on 12/08/211710 by SIDDHARTH ELLSWORTH Justicifation of Admission Dx: Justifications for Admission: Justification of Admission Dx: N/A JUANA JAMESON MD December 12, 2021 11:43
[2021-12-12] MEDS ORDERED: PRED20TA PO (11:48)
[2021-12-12] MEDS ORDERED: LEVO750T5 PO (11:48)
--- NOTE | 2021-12-12 11:50 | SNU/HH DC ---
DISCHARGE ORDERS DISCHARGE INFORMATION: DISCHARGE DATE: December 12, 2021 FINAL DIAGNOSIS Problems Medical Problems: (1) Altered mental status Status: Acute (2) Chest pain Status: Acute (3) Left lower lobe pneumonia Status: Acute (4) Weakness Status: Acute CONDITION ON DISCHARGE: Stable CODE STATUS: Code Status: Full ASSISTED: SNF STAY <30 DAYS: Yes POST DISCHARGE ORDERS: ACTIVITY ORDERS: Activity as tolerated WEIGHT BEARING STATUS: As tolerated DIET AFTER DISCHARGE: Cardiac WOUND/INCISION CARE: Ice to area for comfort, Keep wound elevated CHECKS AFTER DISCHARGE: CHECKS AFTER DISCHARGE: Check blood press - daily TREATMENT/EQUIPMENT ORDERS: Physical Therapy For: Evalulation/Treatment Occupational Therapy For: Evaluation/Treatment Speech Language Pathology For: Evaluation/Treatment DISCHARGE MEDICATIONS: Home Meds Active Scripts Prednisone (PREDNISONE) 20 Mg Tablet, 40 MG PO DAILY for PNA for 10 Days, #15 TAB Prov:JUANA JAMESON MD 12/12/21 Levofloxacin (LEVOFLOXACIN) 750 Mg Tablet, 750 MG PO DAILY06 for PNA for 7 Days, #7 TAB Prov:JUANA JAMESON MD 12/12/21 Potassium Chloride (POTASSIUM CHLORIDE ) 20 Meq Tablet.er, 20 MEQ PO DAILY for 7 Days, #7 TAB.SR Prov:ROSE CLARK APRN 08/16/18 Donepezil Hcl (ARICEPT) 10 Mg Tablet, 10 MG PO DAILY for 30 Days, #30 TAB Prov:PEDRO VANCE MD 07/18/17 Memantine HCl (Memantine HCl) 10 Mg Tablet, 10 MG PO BID for 30 Days, #60 TAB Prov:PEDRO VANCE MD 07/18/17 Losartan Potassium (LOSARTAN POTASSIUM) 50 Mg Tablet, 100 MG PO DAILY for 30 Days, #60 TAB Prov:PEDRO VANCE MD 07/18/17 Reported Medications Magnesium Oxide (MAGNESIUM) 500 Mg Capsule, 1 CAP PO BID for supplement for 30 Days, #60 CAP 0 Refills 03/11/21 Escitalopram Oxalate (ESCITALOPRAM OXALATE) 20 Mg Tablet, 1 TAB PO DAILY for neuro, #30 TAB 5 Refills 03/11/21 Amlodipine Besylate (AMLODIPINE BESYLATE) 5 Mg Tablet, 5 MG PO DAILY for htn, TAB 03/11/21 Amiodarone Hcl (AMIODARONE HCL) 200 Mg Tablet, 1 TAB PO DAILY for arrythmia, #90 TAB 1 Refill 03/11/21 Rosuvastatin Calcium (CRESTOR) 5 Mg Tablet, 2 TAB PO DAILY for HLD, #30 TAB 5 Refills 03/11/21 Fluticasone Propionate (Flonase Allergy Relief) 9.9 Ml [place].susp, 2 SPRAYS NS DAILY, BOTTLE 11/23/17 Cholecalciferol (Vitamin D3) (VITAMIN D3) 1,000 Unit Tablet, 2 TAB PO QEVNG, #30 TAB 5 Refills 11/23/17 [place]-3 Fatty Acids/Fish Oil (FISH OIL 1,000 MG CAPSULE) 1 Each Capsule, 1 EACH PO QEVNG, CAP 07/14/17 Aspirin (ASPIRIN) 81 Mg Tab.chew, 81 MG PO QEVNG, TAB.CHEW 09/09/15 Fexofenadine Hcl (TONI ALLERGY) 180 Mg Tablet, 180 MG PO QEVNG, TAB 09/09/15 Omeprazole (PRILOSEC) 20 Mg Capsule.dr, 20 MG PO HS, CAP 09/09/15 JUANA JAMESON MD December 12, 2021 11:50
--- NOTE | 2021-12-12 12:38 | NUR ---
SS following for discharge planning. SS reviewed pt chart and discussed with pt RN. Pt is from home with spouse and is currently requiring oxygen at two liters nasal canula. COVID19 negative. Per family, pt was recently discharged from [facility], ; fax [phone], last week and has been living at home. Pt's family requesting custodial unit at [facility] again at this time. PT/OT recommended custodial unit. Discharge orders received and sent with referral to [facility]. SS will continue to follow for discharge planning.
[2021-12-12 15:00] VITALS: BP 125/64
[2021-12-12] MEDS: CHOLECALCIFEROL (VITAMIN D3) 1,000 UNIT TABLET PO SCH (18:20)
[2021-12-12] MEDS: CETIRIZINE HCL 10 MG TABLET. PO SCH (18:20)
[2021-12-12] MEDS: ASPIRIN CHEWABLE 81 MG TABLET. PO SCH (18:21)
[2021-12-12 19:00] VITALS: BP 128/71
[2021-12-12] MEDS: PANTOPRAZOLE 40 MG TABLET.DR. PO SCH (21:10)
[2021-12-12 23:03] VITALS: BP 158/84
[2021-12-13 07:00] VITALS: BP 143/74
[2021-12-13] MEDS: IPRATRPIUM/ALBUTEROL 0.5/2.5MG 3 ML NEBU. NEB SCH ×3 (07:37→15:19)
[2021-12-13] MEDS: FLUTICASONE 50MCG/NASAL SPRAY 16GM BOTTLE. NS SCH (09:00)
[2021-12-13 11:00] VITALS: BP 143/84
--- NOTE | 2021-12-13 11:25 | PDOC ---
PULMONARY PROGRESS NOTES DATE: 12/13/21 TIME: 11:23 Subjective Patient does not communicate. No shortness of breath. Vitals Vital Signs Date Time Temp Pulse Resp B/P (MAP) Pulse Ox O2 Delivery O2 Flow Rate FiO2 12/13/21 11:19 Nasal Cannula 2.0 12/13/21 07:40 96 12/13/21 07:00 97.9 63 18 143/74 (97) 97.9 Comments Unable to review systems secondary to dementia Lungs: Crackles Cardiovascular: S1, S2 Abdomen: Soft Extremities: No Edema Skin: Warm Labs Laboratory Tests Test 12/11/21 12:27 White Blood Count 9.9 x10^3/uL (4.0-11.0) Red Blood Count 4.86 x10^6/uL (4.30-5.70) Hemoglobin 14.7 g/dL (13.0-17.5) Hematocrit 43.5 % (39.0-53.0) Mean Corpuscular Volume 90 fL (79-100) Mean Corpuscular Hemoglobin 30 pg (25-35) Mean Corpuscular Hemoglobin Concent 34 g/dL (31-37) Red Cell Distribution Width 14.7 % (11.5-14.5) Platelet Count 154 x10^3/uL (140-400) Neutrophils (%) (Auto) 78 % (31-73) Lymphocytes (%) (Auto) 12 % (24-48) Monocytes (%) (Auto) 10 % (0-9) Eosinophils (%) (Auto) 0 % (0-3) Basophils (%) (Auto) 0 % (0-3) Neutrophils # (Auto) 7.7 x10^3/uL (1.8-7.7) Lymphocytes # (Auto) 1.1 x10^3/uL (1.0-4.8) Monocytes # (Auto) 1.0 x10^3/uL (0.0-1.1) Eosinophils # (Auto) 0.0 x10^3/uL (0.0-0.7) Basophils # (Auto) 0.0 x10^3/uL (0.0-0.2) Sodium Level 144 mmol/L (136-145) Potassium Level 3.3 mmol/L (3.5-5.1) Chloride Level 108 mmol/L (98-107) Carbon Dioxide Level 26 mmol/L (21-32) Anion Gap 10 (6-14) Blood Urea Nitrogen 39 mg/dL (8-26) Creatinine 1.1 mg/dL (0.7-1.3) Estimated GFR (Cockcroft-Gault) 65.4 Glucose Level 97 mg/dL (70-99) Calcium Level 8.6 mg/dL (8.5-10.1) Medications Active Scripts Medications Dose Route/Sig Max Daily Dose Days Date Category Magnesium (Magnesium Oxide) 500 Mg Capsule 1 Cap PO BID 30 03/11/21 Reported Escitalopram Oxalate 20 Mg Tablet 1 Tab PO DAILY 03/11/21 Reported Amlodipine Besylate 5 Mg Tablet 5 Mg PO DAILY 03/11/21 Reported Amiodarone Hcl 200 Mg Tablet 1 Tab PO DAILY 03/11/21 Reported Crestor (Rosuvastatin Calcium) 5 Mg Tablet 2 Tab PO DAILY 03/11/21 Reported Potassium Chloride (Potassium Chloride) 20 Meq Tablet.er 20 Meq PO DAILY 7 08/16/18 Rx Flonase Allergy Relief (Fluticasone Propionate) 9.9 Ml [place].susp 2 Sprays NS DAILY 11/23/17 Reported Vitamin D3 (Cholecalciferol (Vitamin D3)) 1,000 Unit Tablet 2 Tab PO QEVNG 11/23/17 Reported Aricept (Donepezil Hcl) 10 Mg Tablet 10 Mg PO DAILY 30 07/18/17 Rx Memantine HCl 10 Mg Tablet 10 Mg PO BID 30 07/18/17 Rx Losartan Potassium 50 Mg Tablet 100 Mg PO DAILY 30 07/18/17 Rx Fish Oil 1,000 Mg Capsule ([place]-3 Fatty Acids/Fish Oil) 1 Each Capsule 1 Each PO QEVNG 07/14/17 Reported Aspirin 81 Mg Tab.chew 81 Mg PO QEVNG 09/09/15 Reported Jessica Allergy (Fexofenadine Hcl) 180 Mg Tablet 180 Mg PO QEVNG 09/09/15 Reported Prilosec (Omeprazole) 20 Mg Capsule.dr 20 Mg PO HS 09/09/15 Reported Impression . IMPRESSION: 1. Acute hypoxemic respiratory failure secondary to pneumonia. 2. Abnormal x-ray, compatible with pneumonia, gram-negative, possibly gram-positive, suspect aspiration. 3. Dementia with generalized weakness. 4. Allergic rhinitis. 5. Chronic atrial fibrillation. 6. Hyperlipidemia. 7. Possible acute diastolic heart failure. Plan . Continue with present antibiotics. Follow-up given with Dr. Strange on February 21 at 1:45 PM Finish course of oral antibiotics, and prednisone LISSETTE HERMAN MD December 13, 2021 11:24
[2021-12-13] MEDS: LACTOBACILLUS RHAMNOSUS GG 1 CAPSULE. PO SCH (12:00)
[2021-12-13] MEDS: AMIODARONE HCL 200 MG TABLET. PO SCH (12:01)
[2021-12-13] MEDS: MAGNESIUM OXIDE 400 MG TABLET PO SCH (12:01)
[2021-12-13] MEDS: predniSONE 20 MG TABLET PO SCH (12:01)
[2021-12-13] MEDS: DONEPEZIL HCL 10 MG TABLET. PO SCH (12:01)
[2021-12-13] MEDS: MEMANTINE 10 MG TABLET. PO SCH (12:04)
[2021-12-13] MEDS: ATORVASTATIN CALCIUM 40 MG TABLET. PO SCH (12:04)
[2021-12-13] MEDS: CITALOPRAM 20 MG TABLET. PO SCH (12:04)
[2021-12-13] MEDS: POTASSIUM CHLORIDE 20 MEQ TABLET.ER. PO SCH (12:04)
[2021-12-13 12:05] VITALS: BP 143/74
[2021-12-13] MEDS: LOSARTAN POTASSIUM 50 MG TABLET. PO SCH (12:05)
--- NOTE | 2021-12-13 12:23 | NUR ---
SS following up with discharge planning. SS reviewed pt chart and discussed with pt RN. Pt is currently requiring oxygen at two liters nasal canula. COVID19 negative. PT/OT recommended jail unit. Pt accepted at [facility], ; fax [phone]. Discharge orders sent to [facility]. Pt will discharge today and go to [facility] between 1500 and 1515. [facility] to provide transportation. Pt and pt's RN notified.
--- NOTE | 2021-12-13 15:45 | NUR ---
Patient discharged to [facility] per w/c. O2 at 2L. Report has been given to receiving nurse. All of patient belongings in room taken by , including glasses. Copy of chart with prescriptions sent with w/c van attendant. No IV access. desk monitor off.
== END 2021-12-13 15:45 | DRG 871 ==
LOC: ER 14:46 → 5 NORTH 15:51
PROVIDERS: ADMIT Internal Medicine; ATTEND Internal Medicine
DX: A41.9 Sepsis, unspecified organism (principal); J15.6 Pneumonia due to other Gram-negative bacteria; J96.01 Acute respiratory failure with hypoxia; I48.20 Chronic atrial fibrillation, unspecified; J44.0 Chronic obstructive pulmonary disease with (acute) lower respiratory infection; N39.0 Urinary tract infection, site not specified; E78.5 Hyperlipidemia, unspecified; F02.80 Dementia in other diseases classified elsewhere, unspecified severity, without behavioral disturbance, psychotic disturbance, mood disturbance, and anxiety; G30.9 Alzheimer's disease, unspecified; I10 Essential (primary) hypertension; Z88.8 Allergy status to other drugs, medicaments and biological substances; Z20.822 Contact with and (suspected) exposure to COVID-19; J30.9 Allergic rhinitis, unspecified; Z79.899 Other long term (current) drug therapy; Z83.3 Family history of diabetes mellitus; Z90.49 Acquired absence of other specified parts of digestive tract; F32.A Depression, unspecified; K21.9 Gastro-esophageal reflux disease without esophagitis; Z88.2 Allergy status to sulfonamides
CPT/HCPCS: 36415; 71045; 80048; 80053; 80076; 81001; 82962; 83880; 84484; 85025; 85610; 87040; 87426; 93005; 94640; 94642; 94760; 96365; 96375; J0696; J1885; J3490; J7060; J7510; J7512; 92610-GN; 97116-GP; 97530-GO; 97530-GP; 97535-GO; 99285-25; G0378